=== PATIENT | male | born 1950 | race African-American/Black ===

== ENCOUNTER 2016-11-11 16:01 | Inpatient (IN) ==
[2016-11-11] MEDS ORDERED: ALBUTEROL/IPRATROPIUM 3 ML NEB RESP TX STA (16:28)
[2016-11-11] MEDS ORDERED: LEVOFLOXACIN INJ 750 MG in PREMIX 1 EACH IV STA (16:28)
[2016-11-11] MEDS ORDERED: ONDANSETRON 4 MG/2 ML VIAL IV STA (16:28)
[2016-11-11] MEDS ORDERED: FUROSEMIDE 100 MG/10 ML VIAL IV STA (16:28)
[2016-11-11] MEDS ORDERED: methylPREDNISolone SOD SUC 125 MG/2 ML VIAL IV STA (16:28)
[2016-11-11 16:40] LABS: Basophils % 0.2 % (0.0-0.8); Eosinophils % 0.2 % (0.00-10.9); Hematocrit 51.6 VOL% (42.0-52.0); Hemoglobin 16.4 GM/DL (14.0-18.0); Immature Granulocytes % 0.6 %; Immature Granulocytes Absolute 0.08 #; Lymphocytes # 0.7 10*3/uL (1.4-4.0); Lymphocytes % 5.5 % (21.2-54.2); Mean Corpuscular HGB Conc 31.8 GM/DL (32-36); Mean Corpuscular Hemoglobin 26 PG (27-34); Mean Corpuscular Volume 80.9 FL (87-102); Mean Platelet Volume 9.3 FL (9.6-12.0); Monocytes # 0.7 10*3/uL (0.11-0.8); Monocytes % 5.2 % (1.7-12.7); Neutrophils # 11.1 10*3/uL (1.4-7.4); Neutrophils % 88.3 % (38.7-73.9); Platelet Count 463 T/CUMM (130-400); Red Blood Count 6.38 MC/CUMM (3.8-5.5); Red Cell Distribution Width 14.7 % (9.3-17.3); White Blood Count 12.6 T/CUMM (4-12)
--- NOTE | 2016-11-11 16:45 | Emergency Department Note ---
Arrival - Arrival Chief Complaint: Shortness of Breath Stated Complaint: SOB ED Nursing Triage Note: increased sob over the past two days. has been sick with a cold and productive cough Mode of Arrival: Ambulatory Limitations: No Limitations Source: Patient Time Seen by Provider: 11/11/16 16:28 - History of Present Illness HPI Narrative: This 66-year-old white male presents with 2 days of increased dyspnea on exertion and at rest, cough productive of solorio secretions, nasal congestion and rhinorrhea, intermittent wheezing, orthopnea, central fleeting chest pain, and PND. Patient has a significant history of both COPD and CHF and has not taken his Lasix for several days. In addition he complains of mild increase in heartburn and belching. He denies nausea, vomiting, chills, or fever in association with this exacerbation. Currently he is alert and oriented and able to speak in complete sentences. He is in no medical distress currently. Onset (ago): day(s) (Patient presents 2 days post onset of symptoms) Consistency: constant Severity: moderate Allergies/Adverse Reactions: Allergies Allergy/AdvReac Type Severity Reaction Status Date / Time No Known Allergies Allergy Verified 05/07/16 10:31 Home Medications: Home Medications Medication Instructions Recorded Confirmed Type Atorvastatin [Lipitor] 10 mg PO DAILY 05/07/16 11/11/16 History Cetirizine Tab [ZyrTEC Tab] 10 mg PO DAILY 05/07/16 11/11/16 History Diltiazem HCl [Diltiazem ER (24 360 mg PO DAILY 05/07/16 11/11/16 History hr)] Furosemide Tab [Lasix Tab] 40 mg PO DAILY 05/07/16 11/11/16 History Metoprolol Tartrate Tab [Lopressor 50 mg PO BID 05/07/16 11/11/16 History Tab] Pantoprazole Tab [Protonix Tab] 40 mg PO DAILY 05/07/16 11/11/16 History Theophylline ER Tab (24 Hr) 400 mg PO DAILY 05/07/16 11/11/16 History Albuterol Sulfate [Ventolin HFA] 2 puff INH Q4H PRN 11/11/16 11/11/16 History Budesonide/Formoterol 160-4.5 2 puff INH BID 11/11/16 11/11/16 History [Symbicort 160-4.5] Roflumilast [Daliresp] 500 mcg PO DAILY 11/11/16 11/11/16 History Sulfameth/Trimeth 800-160 Tab 1 tablet PO BID 11/11/16 11/11/16 History [Bactrim DS Tab] Review of System - Review of System 12 point system: reviewed and no additional remarkable complaints except as stated - Review of System Constitutional: Present: as per HPI Head/Ears/Nose/Throat: Present: see HPI Respiratory: Present: as per HPI Gastrointestinal: Present: as per HPI Medical,Surgical,& Family Hx - Medical History Cardio: History of: Hypertension Endocrine: History of: Dyslipidemia Respiratory: History of: COPD, Respiratory Problems (emphysema) - Social History Smoking Status: Smoker, status unknown Exam Physical Examination: GENERAL: Well developed, well nourished elderly black male in no acute distress. HEENT: Normocephalic. No trauma. Moist mucous membranes. EOMI. PERRLA. ENT ears normal, throat normal, nasal mucosa reveals erythematous edema NECK: Supple. Cervical adenopathy. CARDIAC: Regular. No murmurs. Heart rate 120 CHEST: Scattered expiratory wheezes with bibasilar Rales. No respiratory distress. O2 sat 89% on room air ABDOMEN: Soft. Nontender. Active bowel sounds. EXTREMITIES: No trauma. Normal ROM. No pedal edema. SKIN: No diaphoresis. No rash. NEURO: Alert. Neuro intact. no focal deficits. Vital Signs: Vital Signs Temperature 98.9 F 11/11/16 16:44 Pulse Rate 107 H 11/11/16 18:00 Respiratory Rate 21 11/11/16 18:00 Blood Pressure 142/79 11/11/16 18:00 O2 Sat by Pulse Oximetry 96 11/11/16 18:00 Course - Reevaluation(s) Reevaluation #1: Discussed with patient the need for hospitalization due to his persistent hypoxia despite therapy. - Consultations Consultation #1: Discussed with the hospitalist service who will admit for further evaluation treatment Results - Labs CBC & BMP: 11/11/16 16:32 11/11/16 16:32 Labs: I reviewed the lab and noted the elevated white blood cell count. - Impressions EKG: Sinus tachycardia at 104 with left axis deviation nonspecific ST changes. No acute injury pattern noted. - Diagnostic Findings Procedure: Chest x-ray: image reviewed by me, report reviewed by me (Bullous emphysema with questionable mass), CT - chest: image reviewed by me, report reviewed by me (No mass but again severe bullous emphysema with scarring) Disposition Clinical Impression: Exacerbation of COPD, Bullous emphysema Case discussed with: patient, patient's family Disposition: Still a Patient Condition: Guarded Time of Disposition: 18:42
[2016-11-11 16:50] LABS: PT Patient Result 11.1 SECS; Partial Thromboplastin Time 22.6 SECS (0-40)
[2016-11-11] MEDS ORDERED: methylPREDNISolone SOD SUC 125 MG/2 ML VIAL ONE (16:54)
[2016-11-11] MEDS ORDERED: ONDANSETRON 4 MG/2 ML VIAL ONE (16:54)
[2016-11-11] MEDS ORDERED: TERBUTALINE 1 MG/1 ML VIAL SUBCUT ONE ×2 (16:54→19:21)
[2016-11-11] MEDS ORDERED: FUROSEMIDE 40 MG/4 ML VIAL ONE (16:54)
[2016-11-11] MEDS ORDERED: LEVOFLOXACIN INJ 150 ML IV ONE (16:54)
[2016-11-11 17:00] LABS: Alanine Aminotransferase 16 U/L (16-61); Albumin 3.8 G/DL (3.4-5.0); Alkaline Phosphatase 102 U/L (45-117); Aspartate Amino Transferase 19 U/L (0-37); Blood Urea Nitrogen 34 MG/DL (7-18); Calcium 9.6 MG/DL (8.5-10.1); Glucose 115 MG/DL (74-106); Osmolality,Calculated 278.1 MOS/KG (273-304); Potassium 5.3 MMOL/L (3.5-5.1); Sodium 135 MMOL/L (136-145); Total Protein 7.6 G/DL (6.4-8.3); Troponin I Only < 0.015 NG/ML (0.00-0.045)
[2016-11-11] MEDS: TERBUTALINE 1 MG/1 ML VIAL SUBCUT SCH ×3 (17:00→19:25)
--- NOTE | 2016-11-11 17:03 | XRay Report ---
XR chest 2V Date: 11/11/2016 4:32 PM History: Shortness of breath Comparison: None Technique: PA and lateral chest Findings: The heart is small and compressed by the overexpanded lungs. Symmetric pleural thickening at the lung apices with calcified granulomata/nodes. Possible nipple shadows in both mid lung zones. Additional diffuse parenchymal findings with overlapping soft tissue densities. Blunting of the right costophrenic angle. Deformity of the right eighth and ninth ribs laterally with callus formation. Degenerative changes are noted. Impression: Bullous emphysema with probable chronic scarring. It is difficult to exclude a small right pleural effusion with adjacent atelectasis/infiltration. Probable nipple shadows in the midlung zones. Additional lobulated soft tissue density in the left mid to lower lung zone. This could be related to overlapping soft tissues but it is difficult to exclude additional soft tissue pathology and correlation with physical exam is recommended to exclude mass. Probable old healed fractures of the right eighth and ninth ribs laterally with prominent callus formation. PROCEDURE INTERPRETED AT [facility] DEPARTMENT OF RADIOLOGY Final Report Signed by: Dr. Maylin Duenas
--- NOTE | 2016-11-11 17:38 | EKG Report ---
Stationary ECG Study [facility] ER Test Date: 11/11/2016 5:37:48 PM Pat Name: JOSE MANUEL PORTILLO Department: Room: Gender: M [employer]: YAMILETH : 1950 Requested by: Trung Cook Order Number: [id number] Reading MD: MARILEE BENTLEY Intervals [place] Rate: 104 P: 97 CO: 135 QRS: -30 QRSD: 83 T: 94 QT: 306 QTc: 367 Interpretive Statements SINUS TACHYCARDIA BORDERLINE LEFT AXIS DEVIATION ABNORMAL QRS-T ANGLE 545 Electronically Signed On 11-14-16 06:30:20 CDT by MARILEE BENTLEY [email or web address]
[2016-11-11 18:08] LABS: Apearance,Urine CLEAR (Clear); Bilirubin,Urine Negative (Negative); Blood, Urine Negative (Negative); Glucose,Urine (UA) Negative (Negative); Ketones,Urine Negative (Negative); Mucus,Urine Occasional /LPF (Occasional); Nitrite,Urine Negative (Negative); Protein,Urine Negative; RBC,Urine <1 /HPF (0-4); Urine Color Straw (Yellow); Urine Specific Gravity 1.006 (1.001-1.035); Urine Urobilinogen < 2.0 EU/DL (0.2-1.0); WBC,Urine <1 /HPF (0-6)
--- NOTE | 2016-11-11 18:23 | CT Report ---
History: Shortness of breath. Abnormal chest x-ray suggesting potential pulmonary nodule Date: 11/11/2016 Study: CT chest with IV contrast with pulmonary embolus technique Comparison exam: No previous chest CT Spiral CT sections were obtained through the lungs following the IV administration of 80 mL of Omnipaque 350 without immediate complication. Total DLP measures 249.5 mGy*cm. The CT exam was performed using one or more of the following dose reduction techniques: Automated exposure control and adjustment of the mA and/or kV according to patient size. There is no confluent infiltrate to suggest pneumonia. There is no discrete pulmonary mass to suggest neoplasm. There are severe changes of bullous emphysema, more so in the mid to upper lungs. There is some mild dependent atelectasis in the lower lungs. There is no layering pleural effusion. There is some platelike scarring in either upper lobe. There is also some pleural-based platelike scarring in the right lower lobe. There is no mediastinal lymphadenopathy by short axis diameter criteria. There is no thoracic aortic aneurysm or dissection. There is at least mild coronary artery calcification. There is a nonspecific 2.7 cm right adrenal nodule. The partially visualized upper abdomen is otherwise unremarkable. Impression: Severe changes of bullous emphysema. No pulmonary mass or definite acute pulmonary infiltrate. Nonspecific right adrenal mass which could be related to an adrenal adenoma, though other pathology cannot be excluded; follow-up is needed. Mild coronary artery calcification PROCEDURE INTERPRETED AT [facility] DEPARTMENT OF RADIOLOGY Final Report Signed by: Dr. Huma Mcknight
[2016-11-11] MEDS ORDERED: ALBUTEROL NEB SOLN 5 MG/ML 20 ML/BOTTLE CONT NEB STA (18:38)
--- NOTE | 2016-11-11 19:01 | Hospitalist History & Physical ---
Assessment and Plan - Time spent with patient Time spent with patient: Greater than 30 minutes (1) COPD exacerbation Status: Acute Assessment and plan: Patient be admitted for COPD exacerbation. Will continue O2 supplementation, nebulizers, empiric antibiotics, intravenous corticosteroids. Further workup will be performed based on patient response and results of the pending database. Current Visit: Yes (2) Hypertension Status: Chronic Assessment and plan: Patient has chronic essential hypertension which is currently well controlled. Will continue current regimen. Current Visit: Yes Qualifiers: Hypertension type: essential hypertension Qualified Code(s): I10 - Essential (primary) hypertension (3) Dyslipidemia Status: Chronic Assessment and plan: Continue current statin therapy. Current Visit: Yes History of Present Illness Chief complaint: Short of breath History of present illness: Mr. Melendez is a 66 year old black male with history of COPD, hypertension who presents with 2 day history of progressive dyspnea with associated wheeze and cough productive of whitish phlegm. He denies any chest pain, fever, hemoptysis , abdominal pain, nausea, vomiting, diarrhea, constipation, melena, hematochezia , hematemesis, dysuria, hematuria, urinary frequency urgency or incontinence, seizure, syncope. He states he does have a home nebulizer which he uses and he does have home O2 which he occasionally uses. His primary care provider is Dr. Mercado and his fitting room inspector is Dr. Jaron Martin. He was evaluated in our emergency room and found to have room air O2 sats the persisted less than 90% after treatment and it was deemed he would require further observation and care. Home Medications Medication Instructions Recorded Confirmed Type Atorvastatin [Lipitor] 10 mg PO DAILY 05/07/16 11/11/16 History Cetirizine Tab [ZyrTEC Tab] 10 mg PO DAILY 05/07/16 11/11/16 History Diltiazem HCl [Diltiazem ER (24 360 mg PO DAILY 05/07/16 11/11/16 History hr)] Furosemide Tab [Lasix Tab] 40 mg PO DAILY 05/07/16 11/11/16 History Metoprolol Tartrate Tab [Lopressor 50 mg PO BID 05/07/16 11/11/16 History Tab] Pantoprazole Tab [Protonix Tab] 40 mg PO DAILY 05/07/16 11/11/16 History Theophylline ER Tab (24 Hr) 400 mg PO DAILY 05/07/16 11/11/16 History Albuterol Sulfate [Ventolin HFA] 2 puff INH Q4H PRN 11/11/16 11/11/16 History Budesonide/Formoterol 160-4.5 2 puff INH BID 11/11/16 11/11/16 History [Symbicort 160-4.5] Roflumilast [Daliresp] 500 mcg PO DAILY 11/11/16 11/11/16 History Sulfameth/Trimeth 800-160 Tab 1 tablet PO BID 11/11/16 11/11/16 History [Bactrim DS Tab] Allergies Allergy/AdvReac Type Severity Reaction Status Date / Time No Known Allergies Allergy Verified 05/07/16 10:31 Medical,Surgical,& Family Hx - Medical History Cardio: History of: Hypertension Endocrine: History of: Dyslipidemia Respiratory: History of: COPD, Respiratory Problems (emphysema) - Surgical History Surgical History: noncontributory - Family History Family History: Reports;: Family Cancer - Social History Smoking Status: Former smoker Frequency of Alcohol Use: None Type of Drug Use: None 12 point system: reviewed and no additional remarkable complaints except as stated Exam - Constitutional Vitals: Period Temp Pulse Resp BP Sys/Graf Pulse Ox Last 24 Hr 98.9 F-98.9 F 107-130 18-32 124-187/79-94 89-97 General appearance: mild distress - Head Head exam: Present: normocephalic, atraumatic - Eye Eye exam: Present: EOMI Pupils: Present: RAHEEL - ENT ENT exam: Present: normal oropharynx - Neck Neck exam: Absent: lymphadenopathy, meningismus, tenderness, thyromegaly - Respiratory Respiratory exam: Present: wheezes (Scattered wheeze and expiratory bilaterally) . Absent: accessory muscle use, rales, rhonchi - Cardiovascular Cardiovascular exam: Present: regular rate and rhythm, tachycardia. Absent: gallop, JVD, systolic murmur - GI/Abdominal GI/Abdominal exam: Present: normal bowel sounds, soft. Absent: distended, mass , tenderness, rebound - Extremities Exam Extremities exam: Absent: calf tenderness, edema - Back Exam Back exam: Present: normal inspection. Absent: CVA tenderness (L), CVA tenderness (R) - Neurological Exam Neurological exam: Present: alert, oriented X3, CN II-XII intact. Absent: motor sensory deficit - Psychiatric Psychiatric exam: Present: normal affect, normal mood. Absent: agitated, anxious - Skin Skin exam: Present: normal color, warm, dry. Absent: erythema, rash Results - Labs CBC & BMP: 11/11/16 16:32 11/11/16 16:32 Lab Results: I have reviewed the past 24 hour labs - EKG EKG shows: tachycardia, sinus rhythm - Diagnostic Findings Procedure: Chest x-ray: report reviewed by me, CT: report reviewed by me
[2016-11-11] MEDS ORDERED: ALBUTEROL/IPRATROPIUM 3 ML NEB RESP TX PRN (21:49)
[2016-11-11] MEDS ORDERED: ONDANSETRON 4 MG/2 ML VIAL IV PRN (21:49)
[2016-11-11] MEDS ORDERED: ACETAMINOPHEN 325 MG TABLET PO PRN (21:49)
[2016-11-11] MEDS: METOPROLOL TARTRATE 50 MG TABLET PO SCH (22:40)
[2016-11-11] MEDS: methylPREDNISolone SOD SUC 125 MG/2 ML VIAL IV SCH (22:41)
[2016-11-11] MEDS: BUDESONIDE/FORMOTEROL 160-4.5 INHALER 6 GM INH SCH (22:41)
[2016-11-12] MEDS: ALBUTEROL/IPRATROPIUM 3 ML NEB RESP TX SCH ×5 (00:46→19:30)
[2016-11-12] MEDS: methylPREDNISolone SOD SUC 125 MG/2 ML VIAL IV SCH ×4 (04:37→22:25)
[2016-11-12] MEDS: ATORVASTATIN 10 MG TABLET PO SCH (09:28)
[2016-11-12] MEDS: METOPROLOL TARTRATE 50 MG TABLET PO SCH ×2 (09:28→20:39)
[2016-11-12] MEDS: DILTIAZEM CD 180 MG CAPSULE PO SCH (09:28)
[2016-11-12] MEDS: FUROSEMIDE 40 MG TABLET PO SCH (09:28)
[2016-11-12] MEDS: PANTOPRAZOLE 40 MG TABLET PO SCH (09:28)
[2016-11-12] MEDS: BUDESONIDE/FORMOTEROL 160-4.5 INHALER 6 GM INH SCH ×2 (09:29→20:39)
[2016-11-12] MEDS: THEOPHYLLINE ER (24 HR) 400 MG TABLET PO SCH (09:29)
[2016-11-12] MEDS: CETIRIZINE 10 MG TABLET PO SCH (09:29)
[2016-11-12] MEDS: ROFLUMILAST 500 MCG TABLET PO SCH (09:29)
[2016-11-12] MEDS: ENOXAPARIN 40 MG/0.4 ML SYRINGE SUBCUT SCH (09:29)
--- NOTE | 2016-11-12 11:01 | Hospitalist Progress Note ---
Assessment and Plan - Time spent with patient Time spent with patient: Less than 30 minutes (1) COPD exacerbation Status: Acute Assessment and plan: Patient be admitted for COPD exacerbation. Will continue O2 supplementation, nebulizers, empiric antibiotics, intravenous corticosteroids. Further workup will be performed based on patient response and results of the pending database. 11/12/: Patient continues to have significant wheeze and dyspnea. Will change him to an inpatient at this time will continue current medical therapy as noted above. Current Visit: Yes (2) Hypertension Status: Chronic Assessment and plan: Patient has chronic essential hypertension which is currently well controlled. Will continue current regimen. Current Visit: Yes Qualifiers: Hypertension type: essential hypertension Qualified Code(s): I10 - Essential (primary) hypertension (3) Dyslipidemia Status: Chronic Assessment and plan: Continue current statin therapy. Current Visit: Yes Hospitalist: Subjective Interval history: Mr. Melendez continues to have wheezing dyspnea. He has a moist cough at this time with minimal production. He denies any chest pain. He has been ambulatory in the room but has significant dyspnea with minimal exertion. Exam - Constitutional Vitals: Period Temp Pulse Resp BP Sys/Graf Pulse Ox Last 24 Hr 97.2 F-97.7 F 78-116 17-20 120-150/69-85 93-99 General appearance: no acute distress - Head Head exam: Present: normocephalic, atraumatic - Eye Eye exam: Present: EOMI Pupils: Present: RAHEEL - ENT ENT exam: Present: normal oropharynx - Neck Neck exam: Present: normal inspection - Respiratory Respiratory exam: Present: decreased breath sounds, wheezes (Diffuse wheezing) - Cardiovascular Cardiovascular exam: Present: regular rate and rhythm. Absent: tachycardia - GI/Abdominal GI/Abdominal exam: Present: normal bowel sounds, soft. Absent: mass, tenderness , rebound - Extremities Exam Extremities exam: Absent: calf tenderness, edema - Back Exam Back exam: Present: normal inspection - Neurological Exam Neurological exam: Present: alert, oriented X3, CN II-XII intact. Absent: motor sensory deficit - Psychiatric Psychiatric exam: Present: normal affect, normal mood. Absent: agitated, anxious - Skin Skin exam: Present: warm, dry. Absent: rash Results - Labs CBC & BMP: 11/11/16 16:32 11/11/16 16:32 Lab Results: I have reviewed the past 24 hour labs
[2016-11-12] MEDS: LEVOFLOXACIN INJ 750 MG in PREMIX 1 EACH IV SCH (20:40)
[2016-11-12] MEDS: MELATONIN 3 MG TABLET PO PRN (23:53)
[2016-11-13] MEDS: ALBUTEROL/IPRATROPIUM 3 ML NEB RESP TX SCH ×4 (01:47→19:08)
[2016-11-13] MEDS: methylPREDNISolone SOD SUC 125 MG/2 ML VIAL IV SCH ×3 (05:53→17:20)
[2016-11-13 07:25] LABS: Hematocrit 41.3 VOL% (42.0-52.0); Hemoglobin 13.6 GM/DL (14.0-18.0); Immature Granulocytes % 0.7 %; Immature Granulocytes Absolute 0.11 #; Lymphocytes # 0.5 10*3/uL (1.4-4.0); Lymphocytes % 2.9 % (21.2-54.2); Mean Corpuscular HGB Conc 32.9 GM/DL (32-36); Mean Corpuscular Hemoglobin 26 PG (27-34); Mean Corpuscular Volume 78.4 FL (87-102); Mean Platelet Volume 10.2 FL (9.6-12.0); Monocytes # 0.2 10*3/uL (0.11-0.8); Monocytes % 1.1 % (1.7-12.7); Neutrophils # 14.9 10*3/uL (1.4-7.4); Neutrophils % 95.3 % (38.7-73.9); Platelet Count 420 T/CUMM (130-400); Red Blood Count 5.27 MC/CUMM (3.8-5.5); Red Cell Distribution Width 14.2 % (9.3-17.3); White Blood Count 15.7 T/CUMM (4-12)
[2016-11-13 07:51] LABS: Calcium 8.6 MG/DL (8.5-10.1); Potassium 5.1 MMOL/L (3.5-5.1)
--- NOTE | 2016-11-13 08:00 | Hospitalist Progress Note ---
Assessment and Plan - Time spent with patient Time spent with patient: Less than 30 minutes (1) COPD exacerbation Status: Acute Assessment and plan: Patient be admitted for COPD exacerbation. Will continue O2 supplementation, nebulizers, empiric antibiotics, intravenous corticosteroids. Further workup will be performed based on patient response and results of the pending database. : Patient continues to have significant wheeze and dyspnea. Will change him to an inpatient at this time will continue current medical therapy as noted above. 11/13/16: Wheezing has improved but he remains short of breath with minimal exertion and even at rest. He states he is not at his baseline and needs more improvement. We will continue his oxygen therapy, nebulizers, antibiotics and intravenous corticosteroids. We will add a mucous lytic expectorant agent. Theophylline level is currently pending. We will follow-up chest x-ray in the a.m. Current Visit: Yes (2) Hypertension Status: Chronic Assessment and plan: Patient has chronic essential hypertension which is currently well controlled. Will continue current regimen. Current Visit: Yes Qualifiers: Hypertension type: essential hypertension Qualified Code(s): I10 - Essential (primary) hypertension (3) Dyslipidemia Status: Chronic Assessment and plan: Continue current statin therapy. Current Visit: Yes Hospitalist: Subjective Interval history: Mr. Melendez continues to be dyspneic at rest and with minimal exertion but wheezing has improved. He denies any chest pain. Has minimal residual cough. Appetite is good. Exam - Constitutional Vitals: Period Temp Pulse Resp BP Sys/Graf Pulse Ox Last 24 Hr 97.3 F-98.1 F 72-94 16-22 119-144/67-75 95-99 General appearance: no acute distress - Head Head exam: Present: normocephalic, atraumatic - Eye Eye exam: Present: EOMI Pupils: Present: RAHEEL - ENT ENT exam: Present: normal exam - Neck Neck exam: Present: normal inspection - Respiratory Respiratory exam: Present: decreased breath sounds, wheezes (Rare scattered end expiratory wheeze). Absent: rales, rhonchi - Cardiovascular Cardiovascular exam: Present: regular rate and rhythm. Absent: systolic murmur , tachycardia - GI/Abdominal GI/Abdominal exam: Present: normal bowel sounds, soft. Absent: distended, mass , tenderness, rebound - Extremities Exam Extremities exam: Absent: calf tenderness, edema - Back Exam Back exam: Present: normal inspection - Neurological Exam Neurological exam: Present: alert, oriented X3, CN II-XII intact. Absent: motor sensory deficit - Psychiatric Psychiatric exam: Present: normal affect, normal mood. Absent: agitated, anxious - Skin Skin exam: Present: warm, dry. Absent: erythema, rash Results - Labs CBC & BMP: 11/13/16 05:21 11/13/16 05:21 Lab Results: I have reviewed the past 24 hour labs
[2016-11-13 08:16] LABS: Hypochromasia Slight; Lymphocytes 3 % (20-55); Platelet Estimate Increased; Segmented Neutrophils 94 % (50-85); Total Cells Counted 100
[2016-11-13] MEDS: CETIRIZINE 10 MG TABLET PO SCH (09:46)
[2016-11-13] MEDS: FUROSEMIDE 40 MG TABLET PO SCH (09:46)
[2016-11-13] MEDS: ROFLUMILAST 500 MCG TABLET PO SCH (09:46)
[2016-11-13] MEDS: ATORVASTATIN 10 MG TABLET PO SCH (09:46)
[2016-11-13] MEDS: METOPROLOL TARTRATE 50 MG TABLET PO SCH ×2 (09:46→21:45)
[2016-11-13] MEDS: PANTOPRAZOLE 40 MG TABLET PO SCH (09:46)
[2016-11-13] MEDS: THEOPHYLLINE ER (24 HR) 400 MG TABLET PO SCH (09:46)
[2016-11-13] MEDS: DILTIAZEM CD 180 MG CAPSULE PO SCH (09:46)
[2016-11-13] MEDS: BUDESONIDE/FORMOTEROL 160-4.5 INHALER 6 GM INH SCH ×2 (09:47→21:46)
[2016-11-13] MEDS: ENOXAPARIN 40 MG/0.4 ML SYRINGE SUBCUT SCH (09:47)
[2016-11-13] MEDS ORDERED: MAGNESIUM HYDROXIDE SUSP 30 ML UDCUP PO PRN (16:52)
[2016-11-13] MEDS: LEVOFLOXACIN INJ 750 MG in PREMIX 1 EACH IV SCH (21:44)
[2016-11-13] MEDS: MELATONIN 3 MG TABLET PO PRN (21:45)
[2016-11-13] MEDS: ZALEPLON 5 MG CAPSULE PO PRN (21:45)
[2016-11-14] MEDS: ALBUTEROL/IPRATROPIUM 3 ML NEB RESP TX SCH ×4 (00:20→19:09)
--- NOTE | 2016-11-14 07:43 | XRay Report ---
XR chest 2V Date: 11/14/2016 4:00 AM History: Shortness of breath Comparison: 11/11/2016 Technique: PA and lateral chest Findings: The heart is small and compressed by the over expanded lungs. Chronic scarring in the lungs with persistent blunting of the right costophrenic angle. Stable soft tissue densities are noted in the chest. The mediastinum and osseous structures are unchanged in appearance. Impression: Bullous emphysema with chronic scarring. Persistent blunting of the right costophrenic angle with stable soft tissue densities in the chest. PROCEDURE INTERPRETED AT [facility] DEPARTMENT OF RADIOLOGY Final Report Signed by: Dr. Maylin Duenas
[2016-11-14] MEDS: THEOPHYLLINE ER (24 HR) 400 MG TABLET PO SCH (08:29)
[2016-11-14] MEDS: PANTOPRAZOLE 40 MG TABLET PO SCH (08:29)
[2016-11-14] MEDS: CETIRIZINE 10 MG TABLET PO SCH (08:29)
[2016-11-14] MEDS: DILTIAZEM CD 180 MG CAPSULE PO SCH (08:29)
[2016-11-14] MEDS: FUROSEMIDE 40 MG TABLET PO SCH (08:29)
[2016-11-14] MEDS: METOPROLOL TARTRATE 50 MG TABLET PO SCH ×2 (08:29→20:34)
[2016-11-14] MEDS: ATORVASTATIN 10 MG TABLET PO SCH (08:30)
[2016-11-14] MEDS: ROFLUMILAST 500 MCG TABLET PO SCH (08:30)
[2016-11-14] MEDS: ENOXAPARIN 40 MG/0.4 ML SYRINGE SUBCUT SCH (08:32)
[2016-11-14] MEDS: BUDESONIDE/FORMOTEROL 160-4.5 INHALER 6 GM INH SCH ×2 (08:33→20:35)
--- NOTE | 2016-11-14 13:54 | Hospitalist Progress Note ---
<Erik Abbott - Last Filed: 11/14/16 13:57> Assessment and Plan (1) COPD exacerbation Status: Acute Assessment and plan: Will continue O2 supplementation, nebulizers, empiric antibiotics, and intravenous corticosteroids as previously ordered. Leukocytosis remains, WBC- 15.7 today; up from 12.6 on 11/11; NGTD from blood cultures obtained at admission ; will obtain sputum culture for analysis. Current Visit: Yes (2) Hypertension Status: Chronic Current Visit: Yes Qualifiers: Hypertension type: essential hypertension Qualified Code(s): I10 - Essential (primary) hypertension (3) Dyslipidemia Status: Chronic Assessment and plan: Continue lipid lowering agents as previously ordered.Will obtain lipid panel in AM. Current Visit: Yes (4) Hyperglycemia, drug-induced Status: Acute Assessment and plan: Blood glucose levels remain elevated; will start accuchecks with ss coverage and adjust accordingly. Current Visit: Yes Hospitalist: Subjective Interval history: Patient seen and examined; no significant overnight events noted. States" I feel a little better". Exam - Constitutional Vitals: Period Temp Pulse Resp BP Sys/Graf Pulse Ox Last 24 Hr 97.1 F-98.8 F 73-93 16-22 129-152/70-74 91-99 General appearance: normal weight, no acute distress - Head Head exam: Present: normal inspection. Absent: abrasion, contusion, hematoma, laceration - Eye Eye exam: Present: EOMI. Absent: periorbital swelling, scleral icterus Pupils: Present: RAHEEL - ENT ENT exam: Present: normal exam - Neck Neck exam: Present: normal inspection. Absent: lymphadenopathy, meningismus, tenderness, thyromegaly - Respiratory Respiratory exam: Present: decreased breath sounds, wheezes - Cardiovascular Cardiovascular exam: Present: regular rate and rhythm. Absent: carotid bruit, diastolic murmur, gallop, JVD, rubs, systolic murmur - GI/Abdominal GI/Abdominal exam: Present: normal bowel sounds, soft - Extremities Exam Extremities exam: Present: normal inspection - Neurological Exam Neurological exam: Present: alert, oriented X3, CN II-XII intact - Psychiatric Psychiatric exam: Present: normal affect - Skin Skin exam: Present: normal color, warm, dry Results - Labs CBC & BMP: 11/13/16 05:21 11/13/16 05:21 Lab Results: I have reviewed the past 24 hour labs <Sandra Garcia - Last Filed: 11/14/16 17:50> Hospitalist: Subjective Interval history: patient was seen and examined by me. Exam - Constitutional Vitals: Period Temp Pulse Resp BP Sys/Graf Pulse Ox Last 24 Hr 97.1 F-98.8 F 73-93 16-22 129-152/70-83 91-99 Results - Labs CBC & BMP: 11/13/16 05:21 11/13/16 05:21
[2016-11-14] MEDS: methylPREDNISolone SOD SUC 125 MG/2 ML VIAL IV SCH ×5 (17:15→22:01)
[2016-11-14] MEDS: ZALEPLON 5 MG CAPSULE PO PRN (20:30)
[2016-11-14] MEDS: MELATONIN 3 MG TABLET PO PRN (20:30)
[2016-11-14] MEDS: LEVOFLOXACIN INJ 750 MG in PREMIX 1 EACH IV SCH (20:35)
[2016-11-15] MEDS: ALBUTEROL/IPRATROPIUM 3 ML NEB RESP TX SCH ×4 (00:49→19:21)
[2016-11-15] MEDS: methylPREDNISolone SOD SUC 125 MG/2 ML VIAL IV SCH ×5 (06:03→22:00)
--- NOTE | 2016-11-15 06:53 | XRay Report ---
Portable chest Date: 11/15/2016 Clinical history: COPD Comparison: 11/14/2016 Technique: Portable AP sitting chest Findings: The heart remains small and compressed by the over expanded lungs. Chronic scarring with persistent blunting of the right costophrenic angle. Less well-defined soft tissue densities noted in the chest. The mediastinum and osseous structures are stable in appearance. Impression: Bullous emphysema with chronic scarring. Previously noted soft tissue densities in the anterior chest are less well-defined on today's exam. PROCEDURE INTERPRETED AT [facility] DEPARTMENT OF RADIOLOGY Final Report Signed by: Dr. Maylin Duenas
[2016-11-15 07:24] LABS: Basophils % 0.1 % (0.0-0.8); Hematocrit 43.6 VOL% (42.0-52.0); Hemoglobin 14.1 GM/DL (14.0-18.0); Immature Granulocytes % 0.7 %; Immature Granulocytes Absolute 0.07 #; Lymphocytes # 0.3 10*3/uL (1.4-4.0); Mean Corpuscular HGB Conc 32.3 GM/DL (32-36); Mean Corpuscular Hemoglobin 26 PG (27-34); Mean Platelet Volume 9.6 FL (9.6-12.0); Monocytes # 0.1 10*3/uL (0.11-0.8); Monocytes % 1.2 % (1.7-12.7); Neutrophils # 9.7 10*3/uL (1.4-7.4); Platelet Count 390 T/CUMM (130-400); Red Blood Count 5.45 MC/CUMM (3.8-5.5); White Blood Count 10.2 T/CUMM (4-12)
[2016-11-15 07:49] LABS: Hypochromasia 1+; Lymphocytes 2 % (20-55); Platelet Estimate Adequate; Segmented Neutrophils 96 % (50-85); Total Cells Counted 100
[2016-11-15 08:01] LABS: Albumin 3.1 G/DL (3.4-5.0); Bilirubin,Total 0.5 MG/DL (0.2-1.0); Calcium 9.1 MG/DL (8.5-10.1); Magnesium 2.7 MG/DL (1.8-2.4); Osmolality,Calculated 285.5 MOS/KG (273-304); Phosphorous 3.4 MG/DL (2.5-4.9); Potassium 4.7 MMOL/L (3.5-5.1); Total Protein 6.3 G/DL (6.4-8.3)
--- NOTE | 2016-11-15 09:04 | Hospitalist Progress Note ---
Assessment and Plan (1) COPD exacerbation Status: Acute Assessment and plan: Will continue O2 supplementation, nebulizers, empiric antibiotics, and intravenous corticosteroids as previously ordered. Noted decrease in WBC-10.6 today; up from 15.7 on 11/14 NGTD from blood cultures obtained at admission; awaiting sputum culture results. Current Visit: Yes (2) Hypertension Status: Chronic Current Visit: Yes Qualifiers: Hypertension type: essential hypertension Qualified Code(s): I10 - Essential (primary) hypertension (3) Dyslipidemia Status: Chronic Assessment and plan: Continue lipid lowering agents as previously ordered. Current Visit: Yes (4) Hyperglycemia, drug-induced Status: Acute Assessment and plan: Blood glucose levels remain elevated; continue accuchecks with ss coverage and adjust accordingly. Current Visit: Yes Hospitalist: Subjective Interval history: Patient seen and examined. No significant overnight events reported. WBC's trending down today at 10.6. Patient states' I feel a little better". Exam - Constitutional Vitals: Period Temp Pulse Resp BP Sys/Graf Pulse Ox Last 24 Hr 97.5 F-98.3 F 78-97 16-20 112-142/63-89 96-100 General appearance: normal weight, no acute distress - Head Head exam: Present: normal inspection, normocephalic, atraumatic - Eye Eye exam: Present: EOMI. Absent: periorbital swelling, scleral icterus, laceration to eyelids Pupils: Present: RAHEEL, normal accommodation - Neck Neck exam: Present: normal inspection. Absent: lymphadenopathy, meningismus, tenderness, thyromegaly - Respiratory Respiratory exam: Present: accessory muscle use, decreased breath sounds - Cardiovascular Cardiovascular exam: Present: regular rate and rhythm. Absent: carotid bruit, diastolic murmur, gallop, JVD, rubs, systolic murmur - GI/Abdominal GI/Abdominal exam: Present: normal bowel sounds, soft - Extremities Exam Extremities exam: Present: normal inspection, full ROM - Back Exam Back exam: Present: normal inspection - Neurological Exam Neurological exam: Present: alert, oriented X3, CN II-XII intact - Psychiatric Psychiatric exam: Present: normal affect - Skin Skin exam: Present: normal color, warm, dry Results - Labs CBC & BMP: 11/15/16 07:13 11/15/16 07:13 Lab Results: I have reviewed the past 24 hour labs
[2016-11-15] MEDS: ENOXAPARIN 40 MG/0.4 ML SYRINGE SUBCUT SCH (09:44)
[2016-11-15] MEDS: THEOPHYLLINE ER (24 HR) 400 MG TABLET PO SCH (09:45)
[2016-11-15] MEDS: CETIRIZINE 10 MG TABLET PO SCH (09:45)
[2016-11-15] MEDS: ROFLUMILAST 500 MCG TABLET PO SCH (09:45)
[2016-11-15] MEDS: PANTOPRAZOLE 40 MG TABLET PO SCH (09:45)
[2016-11-15] MEDS: DILTIAZEM CD 180 MG CAPSULE PO SCH (09:46)
[2016-11-15] MEDS: FUROSEMIDE 40 MG TABLET PO SCH (09:46)
[2016-11-15] MEDS: METOPROLOL TARTRATE 50 MG TABLET PO SCH ×2 (09:46→20:11)
[2016-11-15] MEDS: ATORVASTATIN 10 MG TABLET PO SCH (09:46)
[2016-11-15] MEDS: BUDESONIDE/FORMOTEROL 160-4.5 INHALER 6 GM INH SCH ×2 (09:49→20:11)
[2016-11-15] MEDS: LEVOFLOXACIN INJ 750 MG in PREMIX 1 EACH IV SCH (20:10)
[2016-11-15] MEDS: MELATONIN 3 MG TABLET PO PRN (20:11)
[2016-11-16] MEDS: ALBUTEROL/IPRATROPIUM 3 ML NEB RESP TX SCH ×3 (00:46→13:02)
[2016-11-16 05:21] LABS: Hematocrit 42.5 VOL% (42.0-52.0); Hemoglobin 13.6 GM/DL (14.0-18.0); Immature Granulocytes % 1.3 %; Immature Granulocytes Absolute 0.12 #; Lymphocytes # 0.3 10*3/uL (1.4-4.0); Lymphocytes % 3.2 % (21.2-54.2); Mean Corpuscular Hemoglobin 26 PG (27-34); Mean Corpuscular Volume 80.8 FL (87-102); Mean Platelet Volume 9.4 FL (9.6-12.0); Monocytes # 0.2 10*3/uL (0.11-0.8); Monocytes % 1.8 % (1.7-12.7); Neutrophils # 8.4 10*3/uL (1.4-7.4); Neutrophils % 93.7 % (38.7-73.9); Platelet Count 415 T/CUMM (130-400); Red Blood Count 5.26 MC/CUMM (3.8-5.5); Red Cell Distribution Width 13.8 % (9.3-17.3); White Blood Count 8.9 T/CUMM (4-12)
[2016-11-16] MEDS: methylPREDNISolone SOD SUC 125 MG/2 ML VIAL IV SCH (05:44)
[2016-11-16 05:49] LABS: Hypochromasia 1+; Lymphocytes 2 % (20-55); Ovalocytes Slight; Platelet Estimate Adequate; Segmented Neutrophils 96 % (50-85); Total Cells Counted 100
[2016-11-16 05:52] LABS: Albumin 2.9 G/DL (3.4-5.0); Bilirubin,Total 0.4 MG/DL (0.2-1.0); Calcium 8.5 MG/DL (8.5-10.1); Magnesium 2.5 MG/DL (1.8-2.4); Osmolality,Calculated 281.8 MOS/KG (273-304); Phosphorous 3.2 MG/DL (2.5-4.9); Potassium 4.5 MMOL/L (3.5-5.1); Total Protein 5.9 G/DL (6.4-8.3)
--- NOTE | 2016-11-16 07:50 | XRay Report ---
Portable chest Date: 11/16/2016 Clinical history: COPD Comparison: 11/15/2016 Technique: Portable AP sitting chest Findings: The heart remains small and compressed by the over expanded lungs. Chronic scarring with atelectasis at the lung bases. Stable mediastinum and osseous structures. Impression: Emphysema with chronic scarring. Residual atelectasis at the lung bases. PROCEDURE INTERPRETED AT [facility] DEPARTMENT OF RADIOLOGY Final Report Signed by: Dr. Maylin Duenas
--- NOTE | 2016-11-16 07:51 | Discharge Summary ---
<Germania Abbottda - Last Filed: 11/16/16 07:51> Hospital Course - Hospital Course Hospital Course: This a 66 year old -[place] elderly male that presented to the ED on with increased dyspnea x2 days. His past medical history includes: hypertension and COPD. At the time of ED presentation; he was noted to be experiencing profound dyspnea with an expiratory wheeze and phlegm production. He was noted to have persistently low oxygen saturations up ED evaluation; in which warranted inpatient admission. He was aggressively treated with empirical antibiotics and corticosteriods, in which he responded appropriately and his symptoms improved greatly. In our opinion today, he is deemed appropriate for discharge. - Time spent with patient Time with patient DS: Less than 30 minutes Diagnosis - Discharge Diagnosis (1) COPD exacerbation Status: Acute (2) Hypertension Status: Chronic (3) Dyslipidemia Status: Chronic (4) Hyperglycemia, drug-induced Status: Acute Discharge Plan - Discharge Data Disposition: Disch To Home/Self Care - Discharge Medications New Levofloxacin Tab [Levaquin Tab] 750 mg PO DAILY #7 tablet Acetaminophen Tab [Tylenol Tab] 325 mg PO Q4H PRN #0 tablet PRN Reason: fever, headache/body aches Magnesium Hydroxide Susp [Milk of Magnesia] 30 ml PO BID PRN #0 PRN Reason: Constipation Melatonin 3 mg PO BEDTIME PRN #0 tablet PRN Reason: Sleep predniSONE [Prednisone] 20 mg PO DIRECTED 10 Days Continue Cetirizine Tab [ZyrTEC Tab] 10 mg PO DAILY Atorvastatin [Lipitor] 10 mg PO DAILY Theophylline ER Tab (24 Hr) 400 mg PO DAILY Diltiazem HCl [Diltiazem ER (24 hr)] 360 mg PO DAILY Pantoprazole Tab [Protonix Tab] 40 mg PO DAILY Furosemide Tab [Lasix Tab] 40 mg PO DAILY Metoprolol Tartrate Tab [Lopressor Tab] 50 mg PO BID Albuterol Sulfate [Ventolin HFA] 2 puff INH Q4H PRN PRN Reason: Shortness Of Breath/Wheezing Roflumilast [Daliresp] 500 mcg PO DAILY Budesonide/Formoterol 160-4.5 [Symbicort 160-4.5] 2 puff INH BID Discontinued Sulfameth/Trimeth 800-160 Tab [Bactrim DS Tab] 1 tablet PO BID - Follow Up or Referral - Forms/Instructions Instructions: Heart Healthy Diet (DC), Chronic Obstructive Pulmonary Disease ( DC), Chronic Hypertension (DC) Exam - Constitutional Vitals: Period Temp Pulse Resp BP Sys/Graf Pulse Ox Last 24 Hr 97.2 F-97.9 F 80-98 16-20 113-144/61-76 94-99 Discharge Results Procedures and tests throughout hospitalization: Pending Orders 11/14/16 09:52 Sputum Culture and Gram Stain Stat Labs on day of discharge: Labs from last 24 hours 11/16/16 11/16/16 04:23 04:23 WBC 8.9 RBC 5.26 Hgb 13.6 L Hct 42.5 MCV 80.8 L MCH 26 L MCHC 32.0 RDW 13.8 Plt Count 415 H MPV 9.4 L Neut % (Auto) 93.7 H Lymph % (Auto) 3.2 L [place] % (Auto) 1.8 Eos % (Auto) 0.0 Baso % (Auto) 0.0 Neut # (Auto) 8.4 H Lymph # (Auto) 0.3 L [place] # (Auto) 0.2 Eos # (Auto) 0.0 Baso # (Auto) 0.0 Total Counted 100 Immature Gran % 1.3 Nucleated RBC % 0.0 Immature Gran # 0.12 Segmented Neutrophils 96 H Lymphocytes 2 L Monocytes 2 Nucleated RBCs # 0.00 Platelet Estimate Adequate Hypochromasia 1+ Ovalocytes Slight Morphology Comment Sodium 137 Potassium 4.5 Chloride 97 L Carbon Dioxide 26 Anion Gap 18.5 H BUN 36 H Creatinine 1.10 GFR Calculation 80 BUN/Creatinine Ratio 32.00 H Glucose 122 H Calculated Osmolality 281.8 Calcium 8.5 Phosphorus 3.2 Magnesium 2.5 H Total Bilirubin 0.40 AST 14 ALT 17 Alkaline Phosphatase 64 Total Protein 5.9 L Albumin 2.9 L Globulin 3.0 Albumin/Globulin Ratio 0.9 L Preliminary micro results at discharge 11/14/16 09:52 Sputum Culture - Preliminary Sputum Normal Coco at 12 hours DS: Provider Date of admission: 11/12/16 10:58 Primary care physician: . No PCP Attending physician on admission: Alton Tejeda Discharging clinician: Erik Abbott CNP <Sandra Garcia - Last Filed: 11/16/16 13:50> Hospital Course - Time spent with patient Time with patient DS: Greater than 30 minutes Discharge Plan - Discharge Data Condition at Discharge: Stable Discharge Diet: diabetic diet - Forms/Instructions Additional Discharge Instructions: Follow PCP in 1week. Exam - Constitutional General appearance: no acute distress - Head Head exam: Present: normal inspection - Eye Eye exam: Present: EOMI - Respiratory Respiratory exam: Present: clear to auscultation bilaterally - Cardiovascular Cardiovascular exam: Present: regular rate and rhythm - GI/Abdominal GI/Abdominal exam: Present: normal bowel sounds - Extremities Exam Extremities exam: Present: normal inspection - Neurological Exam Neurological exam: Present: alert, oriented X3 - Psychiatric Psychiatric exam: Present: normal affect
[2016-11-16] MEDS: ROFLUMILAST 500 MCG TABLET PO SCH (09:08)
[2016-11-16] MEDS: THEOPHYLLINE ER (24 HR) 400 MG TABLET PO SCH (09:08)
[2016-11-16] MEDS: ENOXAPARIN 40 MG/0.4 ML SYRINGE SUBCUT SCH (09:08)
[2016-11-16] MEDS: PANTOPRAZOLE 40 MG TABLET PO SCH (09:08)
[2016-11-16] MEDS: METOPROLOL TARTRATE 50 MG TABLET PO SCH (09:09)
[2016-11-16] MEDS: DILTIAZEM CD 180 MG CAPSULE PO SCH (09:09)
[2016-11-16] MEDS: FUROSEMIDE 40 MG TABLET PO SCH (09:09)
[2016-11-16] MEDS: CETIRIZINE 10 MG TABLET PO SCH (09:09)
[2016-11-16] MEDS: ATORVASTATIN 10 MG TABLET PO SCH (09:10)
[2016-11-16 11:53] VITALS: BP 141/76
== END 2016-11-16 14:30 | disposition home or self-care (01) | DRG 192 ==
LOC: N.ED 16:01 → N.EDINP 16:01 → SUATTDRO 18:56 → N.EDINP 21:37 → N.5E 23:54
PROVIDERS: ADMIT Hospitalist; ATTEND Internal Medicine

== ENCOUNTER 2016-11-19 14:32 | Inpatient (IN) ==
[2016-11-19] MEDS ORDERED: FUROSEMIDE 40 MG/4 ML VIAL ONE (14:36)
[2016-11-19] MEDS ORDERED: methylPREDNISolone SOD SUC 125 MG/2 ML VIAL ONE (14:36)
[2016-11-19] MEDS ORDERED: TERBUTALINE 1 MG/1 ML VIAL SUBCUT ONE (14:36)
[2016-11-19] MEDS ORDERED: methylPREDNISolone SOD SUC 125 MG/2 ML VIAL IV STA (14:41)
[2016-11-19] MEDS ORDERED: cefTRIAXone 1,000 MG in SODIUM CHLORIDE 0.9% 100 ML IV STA (14:41)
[2016-11-19] MEDS ORDERED: FUROSEMIDE 100 MG/10 ML VIAL IV STA (14:41)
[2016-11-19] MEDS ORDERED: MAGNESIUM SULF RIDER 2 GM in PREMIX 1 EACH IV STA (14:41)
[2016-11-19] MEDS ORDERED: AZITHROMYCIN INJ 500 MG in SODIUM CHLORIDE 0.9% 250 ML IV STA (14:41)
[2016-11-19] MEDS: TERBUTALINE 1 MG/1 ML VIAL SUBCUT SCH ×2 (14:48→15:02)
[2016-11-19] MEDS ORDERED: MAGNESIUM SULF RIDER 50 ML IV ONE (14:50)
--- NOTE | 2016-11-19 14:52 | Emergency Department Note ---
Arrival - Arrival Chief Complaint: Shortness of Breath ED Nursing Triage Note: pt to er 20 via ems coming from home with c/o having sob pt is in respiratory distress with respirations of 30. 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 The patient is sadistic at the moment he cannot provide any history. He would seem to be presenting as he did initially on his last admission with severe dyspnea and low saturations. He did however respond quickly to steroids and antibiotics on the last admission. Currently is in moderate to severe respiratory distress Onset (ago): hour(s) (Onset of symptoms in the last several hours.) Consistency: constant Severity: severe Allergies/Adverse Reactions: Allergies Allergy/AdvReac Type Severity Reaction Status Date / Time No Known Allergies Allergy Unverified 11/19/16 14:39 Home Medications: Home Medications Medication Instructions Recorded Confirmed Type Atorvastatin [Lipitor] 10 mg PO DAILY 05/07/16 11/12/16 History Cetirizine Tab [ZyrTEC Tab] 10 mg PO DAILY 05/07/16 11/12/16 History Diltiazem HCl [Diltiazem ER (24 360 mg PO DAILY 05/07/16 11/12/16 History hr)] Furosemide Tab [Lasix Tab] 40 mg PO DAILY 05/07/16 11/12/16 History Metoprolol Tartrate Tab [Lopressor 50 mg PO BID 05/07/16 11/12/16 History Tab] Pantoprazole Tab [Protonix Tab] 40 mg PO DAILY 05/07/16 11/12/16 History Theophylline ER Tab (24 Hr) 400 mg PO DAILY 05/07/16 11/12/16 History Albuterol Sulfate [Ventolin HFA] 2 puff INH Q4H PRN 11/11/16 11/12/16 History Budesonide/Formoterol 160-4.5 2 puff INH BID 11/11/16 11/12/16 History [Symbicort 160-4.5] Roflumilast [Daliresp] 500 mcg PO DAILY 11/11/16 11/12/16 History Acetaminophen Tab [Tylenol Tab] 325 mg PO Q4H PRN #0 tablet 11/16/16 Rx Levofloxacin Tab [Levaquin Tab] 750 mg PO DAILY #7 tablet 11/16/16 Rx Magnesium Hydroxide Susp [Milk of 30 ml PO BID PRN #0 11/16/16 Rx Magnesia] Melatonin 3 mg PO BEDTIME PRN #0 tablet 11/16/16 Rx predniSONE [Prednisone] 20 mg PO DIRECTED 10 Days 11/16/16 Rx Review of System - Review of System ROS unobtainable: other (2 dyskinetic for discussion) Medical,Surgical,& Family Hx - Medical History Cardio: History of: Hypertension HEENT: History of: Eye Problem (eye surgery) Endocrine: History of: Dyslipidemia Rheumatology: History of;: Gout Respiratory: History of: COPD, Respiratory Problems (emphysema) - Family History Family History: Reports;: Family Cancer (mother, brother, aunt) - Social History Smoking Status: Unknown if ever smoked Frequency of Alcohol Use: None Type of Drug Use: Unknown Exam Physical Examination: GENERAL: Thin fragile black male in moderate respiratory distress. HEENT: Normocephalic. No trauma. Moist mucous membranes. EOMI. PERRLA. ENT NML NECK: Supple. No adenopathy. Accessory muscle use noted CARDIAC: Regular. No murmurs. Heart rate 90 CHEST: Scattered expiratory wheeze with poor air movement. Accessory muscle use noted. Moderate respiratory distress. ABDOMEN: Soft. Nontender. Active bowel sounds. EXTREMITIES: No trauma. Normal ROM. No pedal edema. SKIN: No diaphoresis. No rash. NEURO: Alert. Motor sensory vibratory intact. No focal deficits. Vital Signs: Vital Signs Temperature 98.6 F 11/19/16 14:35 Pulse Rate 92 H 11/19/16 14:35 Respiratory Rate 30 H 11/19/16 14:35 Blood Pressure 211/90 11/19/16 14:35 O2 Sat by Pulse Oximetry 89 L 11/19/16 14:35 Course Course Narrative: Patient subsequently became less responsive and progressively hypoxic requiring intubation with a #8 ET tube. - Reevaluation(s) Reevaluation #1: The situation with less discussed with the family who were advised the situation and the obvious need for hospitalization - Consultations Consultation #1: The hospitalist service was consulted for further evaluation treatment Procedures - Intubation Time out performed: No sedative: Etomidate Mg Given: 30 paralytic: Succinylcholine Mg Given: 199 Laryngoscope: fiber optic video scope Assist Device Used: fiber optic device ET Tube Size: 7.5 ET Tube Uncuffed: No Tube Secured Depth (cm): 21 Tube Secured Location: lips Tube Placement Confirmation: visualized tube passing through cords, confirmation by capnometry Patient Tolerated Procedure: no complications Results - Labs CBC & BMP: 11/19/16 15:06 Labs: I reviewed the lab and noted the elevated white blood cell count - Diagnostic Findings Procedure: Chest x-ray: image reviewed by me, report reviewed by me (Evidence of COPD but new increased density at the right lower base) Disposition Clinical Impression: Respiratory failure, Exacerbation of COPD Case discussed with: patient's family Disposition: Still a Patient Condition: Critical Time of Disposition: 15:30
[2016-11-19] MEDS ORDERED: ALBUTEROL 2.5 MG/3 ML NEB RESP TX SCH (15:00)
[2016-11-19 15:14] LABS: Basophils % 0.1 % (0.0-0.8); Hematocrit 52.2 VOL% (42.0-52.0); Hemoglobin 16.1 GM/DL (14.0-18.0); Immature Granulocytes % 2.7 %; Immature Granulocytes Absolute 0.49 #; Lymphocytes % 5.4 % (21.2-54.2); Mean Corpuscular HGB Conc 30.8 GM/DL (32-36); Mean Corpuscular Hemoglobin 26 PG (27-34); Mean Corpuscular Volume 83.8 FL (87-102); Mean Platelet Volume 9.2 FL (9.6-12.0); Monocytes # 0.7 10*3/uL (0.11-0.8); Neutrophils # 16.1 10*3/uL (1.4-7.4); Neutrophils % 87.8 % (38.7-73.9); Platelet Count 507 T/CUMM (130-400); Red Blood Count 6.23 MC/CUMM (3.8-5.5); Red Cell Distribution Width 14.5 % (9.3-17.3); White Blood Count 18.4 T/CUMM (4-12)
--- NOTE | 2016-11-19 15:17 | XRay Report ---
Portable chest. Indication: Shortness of breath. Comparison: November 16, 2016. The heart is normal in size. There is calcific plaque present within the aortic knob. The lung blum are hyperexpanded and bullous disease is suspected at the apices. Fibrotic changes are also noted. Vague interstitial abnormalities have developed in the lung bases consistent with either atelectasis or developing interstitial pneumonia. No pneumothorax. No pleural effusion. Impression: COPD. Opacities at the lung bases, atelectasis versus early infiltrate. PROCEDURE INTERPRETED AT [facility] DEPARTMENT OF RADIOLOGY Final Report Signed by: Dr. Yenny Prakash
[2016-11-19 15:26] LABS: INR 1.1; PT Patient Result 11.2 SECS; Partial Thromboplastin Time 23.1 SECS (0-40)
[2016-11-19] MEDS ORDERED: PROPOFOL 1,000 MG/100 ML BOTTLE IV ONE (15:27)
[2016-11-19] MEDS ORDERED: VECURONIUM 10 MG VIAL IV ONE (15:27)
[2016-11-19] MEDS ORDERED: ETOMIDATE 20 MG/10 ML VIAL IV ONE (15:28)
[2016-11-19] MEDS ORDERED: SUCCINYLCHOLINE 200 MG/10 ML VIAL ONE (15:28)
[2016-11-19 15:36] LABS: Albumin 3.8 G/DL (3.4-5.0); Bilirubin,Total 0.5 MG/DL (0.2-1.0); CKMB % 1.2 %; Calcium 9.1 MG/DL (8.5-10.1); Osmolality,Calculated 286.1 MOS/KG (273-304); Potassium 4.5 MMOL/L (3.5-5.1); Troponin I Only 0.043 NG/ML (0.00-0.045)
--- NOTE | 2016-11-19 15:36 | EKG Report ---
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
[2016-11-19] MEDS ORDERED: ETOMIDATE 20 MG/10 ML VIAL IV STA (15:47)
[2016-11-19] MEDS ORDERED: SUCCINYLCHOLINE 200 MG/10 ML VIAL IV STA (15:47)
[2016-11-19] MEDS ORDERED: SODIUM CHLORIDE 0.9% 1,000 ML IV STA (15:48)
--- NOTE | 2016-11-19 15:51 | Hospitalist History & Physical ---
Assessment and Plan (1) Respiratory distress, acute Status: Acute Assessment and plan: Patient is intubated. Will consult pulmonary to assist with management. We start empirical antibiotic coverage after greenwood cultures are obtained. Will replace volume, start VTE and PPI's. Current Visit: Yes (2) Respiratory failure Status: Acute Assessment and plan: Consult pulmonary for ventilator management Current Visit: Yes (3) COPD exacerbation Status: Acute Current Visit: No (4) Hypertension Status: Chronic Current Visit: No Qualifiers: Hypertension type: essential hypertension Qualified Code(s): I10 - Essential (primary) hypertension History of Present Illness Chief complaint: "shortness of breath" History of present illness: This is a poor rather unfortunate 66 year old elderly man that presented to the ED this morning with a chief complaint of shortness of breath.He was a rather impressive medical history of hypertension, dyslipidemia , GERD, COPD, and seasonal allergies. The patient was recently discharged from [facility] in 11/16 for COPD exacerbation. Apparently, he has been experiencing increased shortness of breath. His family is at bedside. They report that the patient has not been able to lie flat and has "been getting worse". This morning his symptoms increased in severity. His family reports that they administered several breathing treatments, however his symptoms failed to improve. They were alarmed and called for emergency assistance. He presented in respiratory distress. He was given both intravenous and nebulizer steroids; however his symptoms failed to improve. He was electively intubated for airway protection and impending respiratory arrest. He will be admitted to intensive care under the hospitalist services. We will consult pulmonary for ventilator management. Home Medications Medication Instructions Recorded Confirmed Type Atorvastatin [Lipitor] 10 mg PO DAILY 05/07/16 11/19/16 History Cetirizine Tab [ZyrTEC Tab] 10 mg PO DAILY 05/07/16 11/19/16 History Diltiazem HCl [Diltiazem ER (24 360 mg PO DAILY 05/07/16 11/19/16 History hr)] Furosemide Tab [Lasix Tab] 40 mg PO DAILY 05/07/16 11/19/16 History Pantoprazole Tab [Protonix Tab] 40 mg PO DAILY 05/07/16 11/19/16 History Theophylline ER Tab (24 Hr) 400 mg PO DAILY 05/07/16 11/19/16 History Albuterol Sulfate [Ventolin HFA] 2 puff INH Q4H PRN 11/11/16 11/19/16 History Budesonide/Formoterol 160-4.5 2 puff INH BID 11/11/16 11/19/16 History [Symbicort 160-4.5] Roflumilast [Daliresp] 500 mcg PO DAILY 11/11/16 11/19/16 History Acetaminophen Tab [Tylenol Tab] 325 mg PO Q4H PRN #0 tablet 11/16/16 11/19/16 Rx Levofloxacin Tab [Levaquin Tab] 750 mg PO DAILY #7 tablet 11/16/16 11/19/16 Rx Magnesium Hydroxide Susp [Milk of 30 ml PO BID PRN #0 11/16/16 11/19/16 Rx Magnesia] Melatonin 3 mg PO BEDTIME PRN #0 tablet 11/16/16 11/19/16 Rx predniSONE [Prednisone] 20 mg PO DIRECTED 10 Days 11/16/16 11/19/16 Rx Allergies Allergy/AdvReac Type Severity Reaction Status Date / Time No Known Allergies Allergy Unverified 11/19/16 14:39 Medical,Surgical,& Family Hx - Medical History Cardio: History of: Hypertension HEENT: History of: Eye Problem (eye surgery) Endocrine: History of: Dyslipidemia Rheumatology: History of;: Gout Respiratory: History of: COPD, Respiratory Problems (emphysema) - Family History Family History: Reports;: Family Cancer (mother, brother, aunt) - Social History Smoking Status: Unknown if ever smoked Frequency of Alcohol Use: None Type of Drug Use: Unknown ROS unobtainable: due to endotracheal tube Exam - Constitutional Vitals: Period Temp Pulse Resp BP Sys/Graf Pulse Ox Last 24 Hr 98.6 F 92 16-30 211/90 89 General appearance: normal weight, severe distress - Head Head exam: Present: normal inspection, hematoma. Absent: abrasion, contusion - Eye Eye exam: Present: EOMI Pupils: Present: RAHEEL, normal accommodation - ENT ENT exam: Present: normal exam - Neck Neck exam: Present: normal inspection - Respiratory Respiratory exam: Present: accessory muscle use, rales - Cardiovascular Cardiovascular exam: Present: tachycardia. Absent: gallop, JVD, rubs - GI/Abdominal GI/Abdominal exam: Present: normal bowel sounds, soft - Extremities Exam Extremities exam: Present: normal inspection, full ROM - Back Exam Back exam: Present: normal inspection - Neurological Exam Neurological exam: Present: altered - Psychiatric Psychiatric exam: Present: normal affect, normal mood - Skin Skin exam: Present: normal color, dry Results - Labs CBC & BMP: 11/19/16 15:06 11/19/16 15:06 Lab Results: I have reviewed the past 24 hour labs Quality Measures - VTE Deep Vein Thrombosis/Pulmonary Embolism Present on Admission: No
[2016-11-19] MEDS: PROPOFOL 1,000 MG/100 ML BOTTLE IV SCH ×2 (15:54→20:06)
[2016-11-19] MEDS ORDERED: cefTRIAXone 1,000 MG VIAL ONE (15:55)
--- NOTE | 2016-11-19 15:58 | XRay Report ---
Chest for nasogastric tube placement. The distal tip of the nasogastric tube is in the fundus of the stomach. PROCEDURE INTERPRETED AT [facility] DEPARTMENT OF RADIOLOGY Final Report Signed by: Dr. Yenny Prakash
--- NOTE | 2016-11-19 16:02 | XRay Report ---
Portable chest. Indication: Post intubation. Comparison: Exam from earlier today. 1451 hours. The heart is normal in size. There is a small, 5% pneumothorax visible on the right. The endotracheal tube and nasogastric tube are in satisfactory position. The lung blum are hyperexpanded and bullous disease is suspected at the apices. Fibrosis is seen at the lung bases with atelectasis at the left lung base. Impression: Small right-sided pneumothorax is now visible. Findings of COPD. Satisfactory endotracheal tube and nasogastric tube placement. Findings were discussed with the patient's nurse in the emergency room. PROCEDURE INTERPRETED AT [facility] DEPARTMENT OF RADIOLOGY Final Report Signed by: Dr. Yenny Prakash
[2016-11-19 16:08] LABS: ABG Base Excess 5.1 MMOL/L (-2.5-2.5); ABG HCO3 38.6 MMOL/L (20-26); ABG Oxygen Saturation 97.9 % (95-100); ABG PO2 152.6 MM HG (80-95); ABG TCO2 42.1 MMOL/L (23-27)
[2016-11-19] MEDS ORDERED: AZITHROMYCIN 500 MG VIAL IV ONE (16:09)
[2016-11-19 16:10] LABS: ABG PCO2 112.4 MM HG (35-48); ABG PH 7.154 (7.35-7.45)
--- NOTE | 2016-11-19 16:20 | XRay Report ---
Portable chest. Indication: Hypoxia. An endotracheal tube and nasogastric tube are in satisfactory position. There is a small right pneumothorax, measuring 5 mm at the apex, and 2.2 cm at the right costophrenic angle. It may be slightly increased in size, particularly at the costophrenic angle, compared to the exam performed at 3:30. There is atelectasis present at the left lung base, with some improvement. Findings of COPD. Normal heart size. Impression: Right-sided pneumothorax, stable to slightly larger. PROCEDURE INTERPRETED AT [facility] DEPARTMENT OF RADIOLOGY Final Report Signed by: Dr. Yenny Prakash
[2016-11-19] MEDS ORDERED: MAGNESIUM HYDROXIDE SUSP 30 ML UDCUP PO PRN (16:56)
[2016-11-19] MEDS ORDERED: ACETAMINOPHEN 325 MG TABLET PO PRN (16:56)
[2016-11-19] MEDS ORDERED: DILTIAZEM CD 180 MG CAPSULE PO SCH (16:56)
[2016-11-19] MEDS ORDERED: ALBUTEROL/IPRATROPIUM 3 ML NEB RESP TX PRN (16:56)
[2016-11-19] MEDS ORDERED: THEOPHYLLINE ER (24 HR) 400 MG TABLET PO SCH (17:00)
[2016-11-19 17:12] LABS: ABG Base Excess 4.6 MMOL/L (-2.5-2.5); ABG HCO3 37.3 MMOL/L (20-26); ABG Oxygen Saturation 88.9 % (95-100); ABG PO2 72.5 MM HG (80-95); ABG TCO2 40.5 MMOL/L (23-27); Allen Test Positive; Pt O2 Delivery Device Ventilator
[2016-11-19 17:14] LABS: ABG PCO2 102.7 MM HG (35-48); ABG PH 7.178 (7.35-7.45)
[2016-11-19] MEDS ORDERED: SODIUM BICARBONATE 50 MEQ/50 ML SYRINGE IV ONE ×3 (17:25→17:31)
--- NOTE | 2016-11-19 17:51 | General Surgery Consult Note ---
Assessment and Plan (1) Pneumothorax, acute Status: Acute Assessment and plan: Impression: Pneumothorax right side Plan: I expect the pneumothorax to worsen with positive pressure. We'll place a right chest tube to prevent any worsening and possible tension pneumothorax. Chest tube will need to be left in place until the patient is off the ventilator. Current Visit: Yes History of Present Illness Chief complaint: consult for right chest tube History of present illness: Mr. Melendez is a 66 year old male who presented to the emergency room for shortness of breath and acute COPD exacerbation. This required intubation in the ER and a subsequent chest x-ray showed a pneumothorax. Repeat chest x-ray showed a mildly larger pneumothorax in this patient on the ventilator with positive pressure. Home Medications Medication Instructions Recorded Confirmed Type Atorvastatin [Lipitor] 10 mg PO DAILY 05/07/16 11/19/16 History Cetirizine Tab [ZyrTEC Tab] 10 mg PO DAILY 05/07/16 11/19/16 History Diltiazem HCl [Diltiazem ER (24 360 mg PO DAILY 05/07/16 11/19/16 History hr)] Furosemide Tab [Lasix Tab] 40 mg PO DAILY 05/07/16 11/19/16 History Pantoprazole Tab [Protonix Tab] 40 mg PO DAILY 05/07/16 11/19/16 History Theophylline ER Tab (24 Hr) 400 mg PO DAILY 05/07/16 11/19/16 History Albuterol Sulfate [Ventolin HFA] 2 puff INH Q4H PRN 11/11/16 11/19/16 History Budesonide/Formoterol 160-4.5 2 puff INH BID 11/11/16 11/19/16 History [Symbicort 160-4.5] Roflumilast [Daliresp] 500 mcg PO DAILY 11/11/16 11/19/16 History Acetaminophen Tab [Tylenol Tab] 325 mg PO Q4H PRN #0 tablet 11/16/16 11/19/16 Rx Levofloxacin Tab [Levaquin Tab] 750 mg PO DAILY #7 tablet 11/16/16 11/19/16 Rx Magnesium Hydroxide Susp [Milk of 30 ml PO BID PRN #0 11/16/16 11/19/16 Rx Magnesia] Melatonin 3 mg PO BEDTIME PRN #0 tablet 03/22/17 03/25/17 Rx predniSONE [Prednisone] 20 mg PO DIRECTED 10 Days 11/16/16 11/19/16 Rx Allergies Allergy/AdvReac Type Severity Reaction Status Date / Time No Known Allergies Allergy Unverified 11/19/16 14:39 Medical,Surgical,& Family Hx - Medical History Cardio: History of: Hypertension HEENT: History of: Eye Problem (eye surgery) Endocrine: History of: Dyslipidemia Rheumatology: History of;: Gout Respiratory: History of: COPD, Respiratory Problems (emphysema) - Family History Family History: Reports;: Family Cancer (mother, brother, aunt) - Social History Smoking Status: Unknown if ever smoked Frequency of Alcohol Use: None Type of Drug Use: Unknown ROS unobtainable: due to endotracheal tube Exam - Constitutional General appearance: no acute distress - Neck Neck exam: Present: normal inspection - Respiratory Respiratory exam: Present: clear to auscultation bilaterally - Cardiovascular Cardiovascular exam: Present: RRR - GI/Abdominal GI/Abdominal exam: Present: soft - Skin Skin exam: Present: normal color Quality Measures - VTE Deep Vein Thrombosis/Pulmonary Embolism Present on Admission: No Results - Labs CBC & BMP: 11/19/16 15:06 11/19/16 15:06 Lab Results: I have reviewed the past 24 hour labs
--- NOTE | 2016-11-19 17:56 | Operative Note ---
Date of procedure: 11/19/16 Pre-op diagnosis: right pneumothorax Post-op diagnosis: same Procedure: Procedure performed: Placement of right chest thoracostomy tube Procedure in detail: After informed consent was obtained the patient was laid supine in the ICU bed and the right chest was prepped and draped in usual sterile fashion. After procedural pause local anesthetic infiltrated in the skin and subcutaneous tissue at approximately the right fifth rib space in the anterior axillary line. Incision was made and dissection carried down through skin and soft tissue. Then encountered the rib and injected local along the periosteum. The thoracic cavity was then entered bluntly just over the rib space and there was a return of a gush of air. Finger sweep revealed no adhesions. A 32 [place] chest tube was then placed alongside my finger and guided anteriorly toward the apex. There was moisture within the tube. There was no fluid drained. The chest tube was secured in place with 2-0 silk suture. It was hooked to Pleur-evac and then to low wall suction. Sterile occlusive dressing was applied. Patient tolerated the procedure well. Anesthesia: local Surgeon / Physician: Saúl Cisneros Estimated blood loss: other (less than 10 mL) Specimens: none sent Condition: stable Disposition: no change Results - Labs CBC & BMP: 11/19/16 15:06 11/19/16 15:06 Discharge Plan - Discharge Medications No Action Cetirizine Tab [ZyrTEC Tab] 10 mg PO DAILY Atorvastatin [Lipitor] 10 mg PO DAILY Theophylline ER Tab (24 Hr) 400 mg PO DAILY Diltiazem HCl [Diltiazem ER (24 hr)] 360 mg PO DAILY Pantoprazole Tab [Protonix Tab] 40 mg PO DAILY Furosemide Tab [Lasix Tab] 40 mg PO DAILY Albuterol Sulfate [Ventolin HFA] 2 puff INH Q4H PRN PRN Reason: Shortness Of Breath/Wheezing Roflumilast [Daliresp] 500 mcg PO DAILY Levofloxacin Tab [Levaquin Tab] 750 mg PO DAILY #7 tablet Budesonide/Formoterol 160-4.5 [Symbicort 160-4.5] 2 puff INH BID Acetaminophen Tab [Tylenol Tab] 325 mg PO Q4H PRN #0 tablet PRN Reason: fever, headache/body aches Magnesium Hydroxide Susp [Milk of Magnesia] 30 ml PO BID PRN #0 PRN Reason: Constipation Melatonin 3 mg PO BEDTIME PRN #0 tablet PRN Reason: Sleep predniSONE [Prednisone] 20 mg PO DIRECTED 10 Days - Follow Up or Referral - Forms/Instructions
[2016-11-19 18:15] LABS: ABG Base Excess 13.3 MMOL/L (-2.5-2.5); ABG HCO3 43.1 MMOL/L (20-26); ABG Oxygen Saturation 99.4 % (95-100); ABG PH 7.342 (7.35-7.45); ABG PO2 436.6 MM HG (80-95); ABG TCO2 45.6 MMOL/L (23-27); Allen Test Positive; Pt O2 Delivery Device Ventilator
[2016-11-19 18:16] LABS: ABG PCO2 81.4 MM HG (35-48)
--- NOTE | 2016-11-19 18:21 | XRay Report ---
Portable chest. Indication: Status post chest tube placement. Comparison: Multiple exams from earlier today. A chest tube has been placed on the right. The right-sided pneumothorax is slightly decreased in size. Bullous disease is present. Increased opacity at the left lung base may be related to atelectasis or early infiltrate. Healed tube and nasogastric tube remain in satisfactory position. Impression: There has been chest tube placement and the pneumothorax on the right appears smaller, particularly at the costophrenic angle. Infiltrate versus atelectasis at the left lung base. COPD. PROCEDURE INTERPRETED AT [facility] DEPARTMENT OF RADIOLOGY Final Report Signed by: Dr. Yenny Prakash
[2016-11-19 18:31] LABS: Basophils % 0.1 % (0.0-0.8); Hematocrit 47.1 VOL% (42.0-52.0); Hemoglobin 14.5 GM/DL (14.0-18.0); Immature Granulocytes Absolute 0.43 #; Lymphocytes # 0.2 10*3/uL (1.4-4.0); Lymphocytes % 0.7 % (21.2-54.2); Mean Corpuscular HGB Conc 30.8 GM/DL (32-36); Mean Corpuscular Hemoglobin 26 PG (27-34); Mean Corpuscular Volume 83.7 FL (87-102); Mean Platelet Volume 9.6 FL (9.6-12.0); Monocytes # 0.5 10*3/uL (0.11-0.8); Monocytes % 2.4 % (1.7-12.7); Neutrophils # 20.5 10*3/uL (1.4-7.4); Neutrophils % 94.8 % (38.7-73.9); Platelet Count 427 T/CUMM (130-400); Red Blood Count 5.63 MC/CUMM (3.8-5.5); Red Cell Distribution Width 14.4 % (9.3-17.3); White Blood Count 21.6 T/CUMM (4-12)
[2016-11-19 18:51] LABS: CKMB % 1.2 %; Free T4 (Free Thyroxine) 1.23 NG/DL (0.76-1.46); Thyroid Stimulating Hormone 0.046 uIU/ml (0.358-3.74); Troponin I Only 0.043 NG/ML (0.00-0.045)
[2016-11-19 19:09] LABS: Lymphocytes 2 % (20-55); Segmented Neutrophils 98 % (50-85); Total Cells Counted 100
[2016-11-19 19:14] LABS: Albumin 3.2 G/DL (3.4-5.0); Bilirubin,Total 0.4 MG/DL (0.2-1.0); Calcium 8.3 MG/DL (8.5-10.1); Osmolality,Calculated 299.3 MOS/KG (273-304); Potassium 4.1 MMOL/L (3.5-5.1)
[2016-11-19] MEDS: methylPREDNISolone SOD SUC 125 MG/2 ML VIAL IV SCH (19:17)
[2016-11-19] MEDS: ENOXAPARIN 40 MG/0.4 ML SYRINGE SUBCUT SCH (19:17)
[2016-11-19] MEDS: PIPERACILLIN/TAZOBACTAM 3,375 MG in SODIUM CHLORIDE 0.9% 100 ML IV SCH (19:18)
[2016-11-19] MEDS: LEVOFLOXACIN INJ 750 MG in PREMIX 1 EACH IV SCH (19:18)
[2016-11-19] MEDS: fentaNYL INJ 1,250 MCG in SODIUM CHLORIDE 0.9% 225 ML IV SCH (21:46)
[2016-11-20] MEDS: THEOPHYLLINE 5.33 MG/ML 30 ML/BOTTLE PO SCH ×4 (01:02→18:25)
[2016-11-20] MEDS: DILTIAZEM 90 MG TABLET PO SCH ×2 (01:03→06:25)
[2016-11-20] MEDS: methylPREDNISolone SOD SUC 125 MG/2 ML VIAL IV SCH ×3 (01:03→17:22)
[2016-11-20] MEDS: PIPERACILLIN/TAZOBACTAM 3,375 MG in SODIUM CHLORIDE 0.9% 100 ML IV SCH ×3 (01:04→17:19)
[2016-11-20 03:21] LABS: ABG Base Excess 12.7 MMOL/L (-2.5-2.5); ABG HCO3 36.6 MMOL/L (20-26); ABG Oxygen Saturation 99.4 % (95-100); ABG PCO2 51.3 MM HG (35-48); ABG PH 7.485 (7.35-7.45); ABG TCO2 33.1 MMOL/L (23-27); Allen Test Positive; Pt O2 Delivery Device Ventilator
[2016-11-20 05:55] LABS: Magnesium 3.3 MG/DL (1.8-2.4); Phosphorous 3.5 MG/DL (2.5-4.9)
[2016-11-20] MEDS ORDERED: ALBUTEROL/IPRATROPIUM 3 ML NEB RESP TX PRN (07:51)
--- NOTE | 2016-11-20 07:53 | XRay Report ---
Portable chest. Indication: Shortness of breath. Comparison: November 19, 2016. The heart is normal in size. There are findings of COPD with bullous change particularly in the right lobe. The right-sided chest tube remains in satisfactory position. Continued reduction in the right-sided pneumothorax. Minimal pneumothorax suggested at the right lung apex. Improvement in aeration of the left lung base, with platelike atelectasis persisting medially. The heart size is normal. An endotracheal tube and nasogastric tube remain in satisfactory position. Impression: Interval improvement. PROCEDURE INTERPRETED AT [facility] DEPARTMENT OF RADIOLOGY Final Report Signed by: Dr. Yenny Prakash
[2016-11-20] MEDS ORDERED: DEXTROSE 5% NACL 0.9% 1,000 ML IV SCH (08:00)
--- NOTE | 2016-11-20 08:04 | Pulmonology Consult Note ---
History of Present Illness Chief complaint: Ventilator. Pneumothorax. Acute respiratory failure for O2 and CO2 History of present illness: Mr. Melendez is a 66 year old black male whom I been asked to see in pulmonary consultation for evaluation and treatment of pulmonary status and to manage mechanical ventilation. This patient was hospitalized here 11/11/2016 through . This case was managed by Dr. San and Dr. Abbott. The patient is usually followed from a pulmonary standpoint by Dr. Jaron Martin. On 2016 he had been had been admitted with profound dyspnea, expiratory wheezes and phlegm production. His O2 sats were low. ABGs were not done. On 2016 the patient came to the emergency room with shortness of breath. He says his shortness of breath had continued to progress. He was complaining of orthopnea and dyspnea on exertion. His symptoms did not respond to outpatient treatment. He failed to respond in the emergency room and he was intubated. It was felt that he had an impending respiratory arrest. In the emergency room his ABGs showed a pH of 7.154, PCO2 of 112.4. PO2 152.6 and a bicarb of 38.6. Patient was also found to have a small right-sided pneumothorax and a chest tube was placed. This patient is awake and alert on mechanical ventilation and he is able to answer my questions only yes and no basis. He complains of right chest pain secondary to chest tube. The remainder of his review of systems is negative at the present time. Allergies. None Home medicines. See below Hospital medicines. See below Past history. COPD. Bronchospastic disease. Emphysema. Gout. Hyperlipidemia. High blood pressure. Family history. His mother brother and an aunt have cancer. Social history this patient is a former smoker. He denies alcohol. Admit chest x-ray showed increased interstitial markings in the right lower lung left perihilar area and left lower lung. Along the way and very small pneumothorax at the right costophrenic angle developed. Chest x-ray 11/20/2016 shows a normal-sized heart. Pulmonary arteries are top normal. There are benign calcifications of both hilar areas. Aortic knob is calcified. The mediastinum is normal. There are are only a few residual right lower lung interstitial markings. The left perihilar and left lower lung interstitial markings of all improved significantly leading me to think that this is probably a bilateral pneumonia. Patient's left hilum is not well seen and is somewhat asymmetric and may be enlarged superiorly. Better x-ray will need to be done. There is a chest x-ray on the right I do not see a pneumothorax. ABGs on mechanical ventilation FiO2 60% shows a pH of 7.485, PCO2 51.3 (down from 112.4), PO2 of 237 and a bicarb of 36.6 Microbiology. On 11/14/2016 the patient's sputum grew Zoë. Gram stain from 11/19/2016 shows less than 25 white blood cells per low power field. There are few gram-positive cocci and a few yeast. Lab. Creatinine is 1.2. Electrolytes normal. Theophylline level was 11.2. Liver function tests are normal. CPK is elevated at 504. Troponins is 0.043. Natruretic peptide is 72. Protein and albumin are low at 6.0 and 3.2 respectively. Globulin is normal at 2.8. Thyroid function tests are normal. Admit white blood cell count was 21,600 with 95% segs. H&H is 14.5/47.1 with decreased red blood cell indices. Platelets of 427,000. Physical exam. Vital signs. See below Psychiatric. Alert oriented 3 and able to answer questions with yes and no shakes of the head. Neurological exam. Cranial nerves. Intact. Long track motor functions intact. Sensory exam was not done. Gait was not evaluated. Pupils irises sclera conjunctiva and eyelids are normal. Face is symmetrical. Salivary glands are normal. Lips and tongue are normal. Neck. Symmetrical. No meningismus. Lymphatics. No submandibular cervical or supraclavicular adenopathy. Arterial. Carotid upstroke is fair. Upper extremity pulses are palpable. Lower extremity pulses are nonpalpable. No evidence of lower extremity ischemia. Venous exam. Neck upper and lower extremities are normal. Chest. Symmetrical slightly hyperinflated. Mild loose large airway congestion. No wheezes. Heart. No gallop. Abdomen. None distended. Nontender. Scattered bowel sounds. and rectal deferred. Lower extremities. No edema no definite evidence of deep venous thrombophlebitis although both calves are slightly tender. Upper extremities show no clubbing. Musculoskeletal. No gross abnormalities cervical thoracic and lumbar spine. Skin of the face and hands and feet show no cancerous or infectious lesions. No other areas of skin were examined. The remainder the physical exam is negative. Impression. 1. Acute respiratory failure for oxygen and carbon dioxide requiring intubation mechanical ventilation. 2. COPD with bronchospastic disease. Patient is followed by Dr. Jaron Martin. 3. Small right-sided pneumothorax seen at the right costophrenic phrenic angle. Chest tube. 4. Probable bilateral lower lung pneumonia. 5. See past history Plan. 1. NG feedings. 2. Mechanical ventilation weaning protocol 3. Physical therapy protocol while on mechanical ventilation. 4. Proton pump inhibitor protocol 5. Deep venous thrombophlebitis prevention protocol. 6. Protocol antibiotics. 7. Agree with methylprednisolone. 8. Inhalation therapy 9. Daily chest x-rays ABGs and lab 10. Sputum cultures and blood cultures. 11. Start Diflucan. Sputum has Zoë 12. Doppler venograms of the lower extremities. Calves are slightly tender and the patient had a recent hospitalization. Rule out deep venous thrombophlebitis. 13. This patient probably has a good bit of retained secretions and might benefit from fiberoptic bronchoscopy. Dr. Martin knows his case well will reevaluate in the morning. 14. Blood cultures have been drawn. Home Medications Medication Instructions Recorded Confirmed Type Atorvastatin [Lipitor] 10 mg PO DAILY 05/07/16 11/19/16 History Cetirizine Tab [ZyrTEC Tab] 10 mg PO DAILY 05/07/16 11/19/16 History Diltiazem HCl [Diltiazem ER (24 360 mg PO DAILY 05/07/16 11/19/16 History hr)] Furosemide Tab [Lasix Tab] 40 mg PO DAILY 05/07/16 11/19/16 History Pantoprazole Tab [Protonix Tab] 40 mg PO DAILY 05/07/16 11/19/16 History Theophylline ER Tab (24 Hr) 400 mg PO DAILY 05/07/16 11/19/16 History Albuterol Sulfate [Ventolin HFA] 2 puff INH Q4H PRN 11/11/16 11/19/16 History Budesonide/Formoterol 160-4.5 2 puff INH BID 11/11/16 11/19/16 History [Symbicort 160-4.5] Roflumilast [Daliresp] 500 mcg PO DAILY 11/11/16 11/19/16 History Acetaminophen Tab [Tylenol Tab] 325 mg PO Q4H PRN #0 tablet 11/16/16 11/19/16 Rx Levofloxacin Tab [Levaquin Tab] 750 mg PO DAILY #7 tablet 11/16/16 11/19/16 Rx Magnesium Hydroxide Susp [Milk of 30 ml PO BID PRN #0 11/16/16 11/19/16 Rx Magnesia] Melatonin 3 mg PO BEDTIME PRN #0 tablet 11/16/16 11/19/16 Rx predniSONE [Prednisone] 20 mg PO DIRECTED 10 Days 11/16/16 11/19/16 Rx Allergies Allergy/AdvReac Type Severity Reaction Status Date / Time No Known Allergies Allergy Unverified 11/19/16 14:39 Exam (Pulmonay) H&P - Constitutional Vitals: Period Temp Pulse Resp BP Sys/Graf Pulse Ox Last 24 Hr 96.5 F-97.5 F 96-127 16-60 85-181/61-90 91-100 Medical,Surgical,& Family Hx - Medical History Cardio: History of: Hypertension, Cardiovascular Problems HEENT: History of: Eye Problem (eye surgery) Endocrine: History of: Dyslipidemia Rheumatology: History of;: Gout Respiratory: History of: COPD, Respiratory Problems (emphysema) - Family History Family History: Reports;: Family Cancer (mother, brother, aunt) - Social History Smoking Status: Unknown if ever smoked Frequency of Alcohol Use: None Type of Drug Use: Unknown Results - Labs CBC & BMP: 11/19/16 17:51 11/19/16 17:51 Quality Measures - VTE Deep Vein Thrombosis/Pulmonary Embolism Present on Admission: No
[2016-11-20] MEDS: PANTOPRAZOLE 40 MG VIAL IV SCH (08:39)
[2016-11-20] MEDS: FLUCONAZOLE INJ 200 MG in PREMIX 1 EACH IV SCH (08:46)
[2016-11-20] MEDS: ATORVASTATIN 10 MG TABLET PO SCH (08:48)
--- NOTE | 2016-11-20 08:54 | EKG Report ---
Stationary ECG Study [facility] Test Date: 11/20/2016 8:54:30 AM Pat Name: JOSE MANUEL PORTILLO Department: Room: 130 Gender: M [employer]: TRIPP : [id number] Requested by: Sandip Abbott Order Number: [id number] Reading MD: EARNESTINE JOHNSON Intervals [place] Rate: 118 P: 91 MO: 116 QRS: -74 QRSD: 74 T: 91 QT: 416 QTc: 486 Interpretive Statements SINUS TACHYCARDIA WITH SHORT MO INTERVAL LEFT ATRIAL ABNORMALITY INDETERMINATE AXIS POSSIBLE RIGHT VENTRICULAR CONDUCTION DELAY LEFT ANTERIOR FASCICULAR BLOCK Electronically Signed On 11-20-16 17:38:03 CDT by EARNESTINE JOHNSON [email or web address]
[2016-11-20] MEDS: ALBUTEROL/IPRATROPIUM 3 ML NEB RESP TX SCH ×3 (08:56→20:45)
--- NOTE | 2016-11-20 09:26 | General Surgery Progress Note ---
Assessment and Plan (1) Pneumothorax, acute Status: Acute Assessment and plan: Impression: Pneumothorax right side Plan: Small air leak. Continue chest tube to suction. Chest x-ray improved. Current Visit: Yes Subjective Narrative: Remains intubated. ABGs look better. Exam - Constitutional Vitals: Period Temp Pulse Resp BP Sys/Graf Pulse Ox Last 24 Hr 96.5 F-97.5 F 96-127 16-60 85-181/61-90 91-100 - Respiratory Respiratory exam: Present: clear to auscultation bilaterally, other (chest tube with minimal output. Small air leak noted.) Results - Labs CBC & BMP: 11/19/16 17:51 11/19/16 17:51 - Diagnostic Findings Procedure: X-ray: report reviewed by me, image reviewed by me Quality Measures - VTE Deep Vein Thrombosis/Pulmonary Embolism Present on Admission: No
--- NOTE | 2016-11-20 09:38 | Hospitalist Progress Note ---
Assessment and Plan (1) Acute respiratory failure Status: Acute Assessment and plan: Patient has a history of COPD and a bronchospastic disease.CXR done yesterday showed a small right sided pneumothorax and he currently has a chest tube placed. Microbiology. On 11/14/2016 the patient's sputum grew Zoë. Gram stain from 11/19/2016 shows less than 25 white blood cells per low power field. There are few gram-positive cocci and a few yeast. Microbiology 11/19/16- Sputum- no growth Plan continue vent support, IV steroids, IV antibiotics, chest tube, IV diflucan, nebs, theophylline Follow Pulmonology and CT surgery's recommendations Repeat CXR in am GI and DVT prophylasix Follow dopplers of LE Current Visit: Yes (2) Acute exacerbation of chronic obstructive pulmonary disease (COPD) Status: Acute Assessment and plan: continue with vent support see treatment plan above Current Visit: Yes (3) Hypertension Status: Chronic Assessment and plan: borderline, will reduce Cardizem to 30mg q6hr, follow response. Current Visit: No Qualifiers: Hypertension type: essential hypertension Qualified Code(s): I10 - Essential (primary) hypertension (4) Dyslipidemia Status: Chronic Assessment and plan: will get Lipids, continue with statins Current Visit: No (5) Hyperglycemia Status: Acute Assessment and plan: due to ? steroids. Plan will place on accucheks, SSC insulin, check HA1c level Current Visit: Yes Hospitalist: Subjective Interval history: Patient was admitted yesterday for respiratory failure and subsequently intubated. He was also found to have a small right-sided pneumothorax and a chest tube was placed. Microbiology. On 11/14/2016 the patient's sputum grew Zoë. Gram stain from 11/19/2016 shows less than 25 white blood cells per low power field. There are few gram-positive cocci and a few yeast. This morning, he was awake, still intubated, chest tube was still leaking air. Exam - Constitutional Vitals: Period Temp Pulse Resp BP Sys/Graf Pulse Ox Last 24 Hr 96.5 F-97.5 F 96-127 16-60 85-181/61-90 91-100 General appearance: no acute distress, other (awake but intubated) - Respiratory Respiratory exam: Present: decreased breath sounds - Cardiovascular Cardiovascular exam: Present: regular rate and rhythm - GI/Abdominal GI/Abdominal exam: Present: normal bowel sounds - Extremities Exam Extremities exam: Present: normal inspection - Neurological Exam Neurological exam: Present: other (awake) Results - Labs CBC & BMP: 11/19/16 17:51 11/19/16 17:51 Lab Results: I have reviewed the past 24 hour labs Quality Measures - VTE Deep Vein Thrombosis/Pulmonary Embolism Present on Admission: No
[2016-11-20] MEDS: PROPOFOL 1,000 MG/100 ML BOTTLE IV SCH ×2 (09:46→18:31)
[2016-11-20] MEDS ORDERED: GLUCAGON 1 MG VIAL IM PRN (09:58)
[2016-11-20] MEDS ORDERED: DEXTROSE 50% 25 GM/50 ML VIAL IV PRN (09:58)
[2016-11-20] MEDS: SODIUM CHLORIDE 0.9% 1,000 ML IV SCH (10:19)
[2016-11-20] MEDS: fentaNYL INJ 1,250 MCG in SODIUM CHLORIDE 0.9% 225 ML IV SCH ×2 (10:22→20:19)
--- NOTE | 2016-11-20 10:26 | Ultrasound Report ---
Bilateral lower extremity venous Doppler with solorio scale, Spectral Doppler and color-flow analysis performed and interpreted. Indication: Shortness of breath. Scanning over both common femoral veins, superficial femoral veins, greater saphenous veins and popliteal veins demonstrates normal compressibility, color flow, and augmentation. Impression: No evidence of DVT seen in either lower extremity. PROCEDURE INTERPRETED AT [facility] DEPARTMENT OF RADIOLOGY Final Report Signed by: Dr. Yenny Prakash
[2016-11-20] MEDS: INSULIN REGULAR 100 UNIT/ML SUBCUT SCH ×2 (11:49→18:02)
[2016-11-20] MEDS: DILTIAZEM 30 MG TABLET PO SCH ×2 (13:59→18:24)
[2016-11-20] MEDS: LEVOFLOXACIN INJ 750 MG in PREMIX 1 EACH IV SCH (16:20)
[2016-11-20] MEDS: ENOXAPARIN 40 MG/0.4 ML SYRINGE SUBCUT SCH (16:21)
[2016-11-21] MEDS: methylPREDNISolone SOD SUC 125 MG/2 ML VIAL IV SCH ×3 (00:29→17:45)
[2016-11-21] MEDS: DILTIAZEM 30 MG TABLET PO SCH ×5 (00:29→23:59)
[2016-11-21] MEDS: THEOPHYLLINE 5.33 MG/ML 30 ML/BOTTLE PO SCH ×4 (00:31→17:52)
[2016-11-21] MEDS: INSULIN REGULAR 100 UNIT/ML SUBCUT SCH ×4 (01:06→18:34)
[2016-11-21] MEDS: ALBUTEROL/IPRATROPIUM 3 ML NEB RESP TX SCH ×4 (01:24→19:13)
[2016-11-21] MEDS: PIPERACILLIN/TAZOBACTAM 3,375 MG in SODIUM CHLORIDE 0.9% 100 ML IV SCH ×3 (02:03→17:46)
[2016-11-21] MEDS: fentaNYL INJ 1,250 MCG in SODIUM CHLORIDE 0.9% 225 ML IV SCH ×3 (02:06→21:01)
[2016-11-21] MEDS: PROPOFOL 1,000 MG/100 ML BOTTLE IV SCH ×3 (02:55→21:00)
[2016-11-21 04:28] LABS: ABG Base Excess 8.4 MMOL/L (-2.5-2.5); ABG HCO3 32.2 MMOL/L (20-26); ABG Oxygen Saturation 99.3 % (95-100); ABG PCO2 57.4 MM HG (35-48); ABG PH 7.398 (7.35-7.45); ABG TCO2 31.1 MMOL/L (23-27); Pt O2 Delivery Device Ventilator
[2016-11-21 05:45] LABS: Basophils % 0.1 % (0.0-0.8); Hematocrit 40.3 VOL% (42.0-52.0); Hemoglobin 12.4 GM/DL (14.0-18.0); Immature Granulocytes % 1.3 %; Immature Granulocytes Absolute 0.26 #; Lymphocytes # 0.3 10*3/uL (1.4-4.0); Lymphocytes % 1.7 % (21.2-54.2); Mean Corpuscular HGB Conc 30.8 GM/DL (32-36); Mean Corpuscular Hemoglobin 26 PG (27-34); Mean Corpuscular Volume 84.3 FL (87-102); Mean Platelet Volume 9.7 FL (9.6-12.0); Monocytes # 0.7 10*3/uL (0.11-0.8); Monocytes % 3.6 % (1.7-12.7); Neutrophils # 18.1 10*3/uL (1.4-7.4); Neutrophils % 93.3 % (38.7-73.9); Platelet Count 318 T/CUMM (130-400); Red Blood Count 4.78 MC/CUMM (3.8-5.5); Red Cell Distribution Width 14.7 % (9.3-17.3); White Blood Count 19.3 T/CUMM (4-12)
[2016-11-21 06:11] LABS: Hypochromasia 1+; Lymphocytes 2 % (20-55); Platelet Estimate Adequate; Segmented Neutrophils 96 % (50-85); Total Cells Counted 100
[2016-11-21] MEDS: SODIUM CHLORIDE 0.9% 1,000 ML IV SCH ×2 (06:11→10:29)
[2016-11-21 06:12] LABS: Calcium 8.3 MG/DL (8.5-10.1); Osmolality,Calculated 299.7 MOS/KG (273-304)
[2016-11-21 06:16] LABS: Risk Ratio 1.73; VLDL CHOLESTEROL 34.4 MG/DL
--- NOTE | 2016-11-21 07:27 | XRay Report ---
XR chest 1V portable Indication: Shortness of breath. Ventilator. Chest one view: Comparison yesterday. Endotracheal tube, NG tube, right-sided chest tube, normal heart size and mediastinal contour, bullous emphysema are stable. Continued scarring at the lung bases noted. Impression: Overall, no significant change. PROCEDURE INTERPRETED AT [facility] DEPARTMENT OF RADIOLOGY Final Report Signed by: Ben Taylor M.D.
--- NOTE | 2016-11-21 07:47 | Pulmonology Progress Note ---
Pulmonary - PN: Subj Interval history: Patient is a 66-year-old black man with a long history of COPD along with hypertension and hyperlipidemia. He apparently was in the hospital recently with an exacerbation of his COPD. He went home and did not get any better and came back with more shortness of breath. He was found to have a small right spontaneous pneumothorax. He had to be intubated now on the ventilator. He has a right chest tube with no air leak now. His oxygenation is doing better. At present he seems to be relatively comfortable on the ventilator. Exam (Progress Note) - Constitutional Vitals: Period Temp Pulse Resp BP Sys/Graf Pulse Ox Last 24 Hr 97.0 F-97.9 F 93-118 9-31 85-153/58-97 90-100 General appearance: no acute distress, under weight, other (Patient looks comfortable on the ventilator.) - Head Head exam: Present: normal inspection, normocephalic - Eye Eye exam: Present: EOMI. Absent: scleral icterus Pupils: Present: RAHEEL - ENT ENT exam: Present: other (ET tube is in good position.) - Neck Neck exam: Present: normal inspection. Absent: lymphadenopathy, thyromegaly - Respiratory Respiratory exam: Present: decreased breath sounds. Absent: rhonchi - Cardiovascular Cardiovascular exam: Present: regular rate and rhythm, tachycardia. Absent: gallop, systolic murmur - GI/Abdominal GI/Abdominal exam: Present: normal bowel sounds, soft. Absent: distended, organomegaly, tenderness - Extremities Exam Extremities exam: Absent: calf tenderness, edema - Neurological Exam Neurological exam: Present: alert - Skin Skin exam: Present: warm, dry Results - Labs CBC & BMP: 11/21/16 05:27 11/21/16 05:27 Labs: His PO2 is 219 on 60% oxygen. His PCO2 is 57 with a pH of 7.39 - Diagnostic Findings Procedure: Chest x-ray: image reviewed by me, report reviewed by me (Chest x- ray shows COPD changes with slight increased markings in the bases) Assessment and Plan (1) Hypertension Status: Chronic Assessment and plan: He appears to be hemodynamically stable at present. Current Visit: No Qualifiers: Hypertension type: essential hypertension Qualified Code(s): I10 - Essential (primary) hypertension (2) Pneumothorax, acute Status: Acute Assessment and plan: His right lung is expanded and there is no pneumothorax now. Current Visit: Yes (3) Acute respiratory failure Status: Acute Assessment and plan: The patient's PCO2 was over 100 when he came to the emergency room. Current Visit: Yes (4) Acute exacerbation of chronic obstructive pulmonary disease (COPD) Status: Acute Assessment and plan: Patient has significant COPD and is being treated for an exacerbation. We will continue with ventilatory support. Current Visit: Yes
[2016-11-21] MEDS: ATORVASTATIN 10 MG TABLET PO SCH ×2 (09:00→09:04)
[2016-11-21] MEDS: PANTOPRAZOLE 40 MG VIAL IV SCH (09:00)
--- NOTE | 2016-11-21 10:31 | General Surgery Progress Note ---
Assessment and Plan (1) Pneumothorax, acute Status: Acute Assessment and plan: Impression: Pneumothorax right side Plan: Continue chest tube to suction a today. Chest x-ray looks good. Current Visit: Yes Subjective Narrative: Remains intubated. Exam - Constitutional Vitals: Period Temp Pulse Resp BP Sys/Graf Pulse Ox Last 24 Hr 97.0 F-97.9 F 93-118 9-31 101-153/62-97 90-100 General appearance: no acute distress - Head Head exam: Present: normocephalic - Respiratory Respiratory exam: Present: clear to auscultation bilaterally, other (chest tube with small air leak. Appears improved. No drainage.) - Cardiovascular Cardiovascular exam: Present: RRR Results - Labs CBC & BMP: 11/21/16 05:27 11/21/16 05:27 Lab Results: I have reviewed the past 24 hour labs Quality Measures - VTE Deep Vein Thrombosis/Pulmonary Embolism Present on Admission: No
[2016-11-21] MEDS ORDERED: SUCCINYLCHOLINE 200 MG/10 ML VIAL ONE (11:16)
[2016-11-21] MEDS: FLUCONAZOLE INJ 200 MG in PREMIX 1 EACH IV SCH (12:08)
--- NOTE | 2016-11-21 12:09 | Anesthesia ---
Anesthesia Procedures - Intubation Time out performed intubation: Yes Sedative: other Mg given sedative: 80 (Propofol) Paralytic: Succinylcholine Mg given paralytic: 100 Laryngoscope: Princess ET Tube Size: 8 Tube Secured Depth (cm): 24 Tube Secured Location: lips Tube Placement Confirmation: visualized tube passing through cords, equal breath sounds bilaterally, no breath sounds over epigastrium, confirmation by capnometry, confirmation detector color change Patient tolerated procedure intubation: well Intubation Complications: none Additional Commets: Patient was reintubated at 11: 25 am with ETT # 8.0 as per request of the nurse taking care of the patient and Dr. Martin due to an ETT cuff leak.
--- NOTE | 2016-11-21 12:19 | Hospitalist Progress Note ---
Assessment and Plan (1) Acute respiratory failure Status: Acute Assessment and plan: Patient has a history of COPD and a bronchospastic disease.CXR done yesterday showed a small right sided pneumothorax and he currently has a chest tube placed. Microbiology. On 11/14/2016 the patient's sputum grew Zoë. Gram stain from 11/19/2016 shows less than 25 white blood cells per low power field. There are few gram-positive cocci and a few yeast. Microbiology 11/19/16- Sputum- no growth 11/21/2016 Chest tube still has small leak. Patient looks comfortable on the vent. He was awake. Dopplers- negative for DVT. Plan continue vent support, IV steroids, IV antibiotics, chest tube, IV diflucan, nebs, theophylline Follow Pulmonology and CT surgery's recommendations Repeat CXR in am GI and DVT prophylasix Current Visit: Yes (2) Acute exacerbation of chronic obstructive pulmonary disease (COPD) Status: Acute Assessment and plan: continue with vent support see treatment plan above Current Visit: Yes (3) Hypertension Status: Chronic Assessment and plan: stable on Cardizem to 30mg q6hr. Current Visit: No Qualifiers: Hypertension type: essential hypertension Qualified Code(s): I10 - Essential (primary) hypertension (4) Dyslipidemia Status: Chronic Assessment and plan: Lipids-noted, continue with statins Current Visit: No (5) Hyperglycemia Status: Acute Assessment and plan: due to ? steroids. Plan blood sugar is controlled on SSC, we will continue.HA1c level-7.0 Current Visit: Yes Hospitalist: Subjective Interval history: Patient was awake and intubated.He still has his chest tube in place. Exam - Constitutional Vitals: Period Temp Pulse Resp BP Sys/Graf Pulse Ox Last 24 Hr 97.0 F-97.9 F 93-118 9-31 101-164/62-97 93-100 General appearance: no acute distress - Respiratory Respiratory exam: Present: clear to auscultation bilaterally, other (right sided chest tube to sunction in place) - Cardiovascular Cardiovascular exam: Present: regular rate and rhythm - GI/Abdominal GI/Abdominal exam: Present: normal bowel sounds - Extremities Exam Extremities exam: Present: normal inspection Results - Labs CBC & BMP: 11/21/16 05:27 11/21/16 05:27 Lab Results: I have reviewed the past 24 hour labs Quality Measures - VTE Deep Vein Thrombosis/Pulmonary Embolism Present on Admission: No
--- NOTE | 2016-11-21 12:38 | XRay Report ---
Referring Physician: Kyle Martin MD Exam: XR chest 1V portable Date: November 21, 2016 at 11:36 AM Reason: Mechanical ventilation Comparison: Chest one view portable November 21, 2016 at 3:28 AM Findings: An endotracheal tube, feeding tube and right chest tube are again in place. The distal tip of the feeding tube is located within the gastric fundus. The distal tip of the endotracheal tube projects just above the aortic arch, approximately 5 cm above the taylor. The heart appears stable in size. There are scattered opacities within the mid and lower lung zones bilaterally. This could represent atelectasis, pulmonary edema and/or pneumonia. There is also emphysema with bleb formation. The bleb formation makes evaluation for a pneumothorax is difficult, but no definite pneumothorax is identified. There may be minimal bilateral pleural fluid. The osseous structures appear stable. Impression: 1. Tubes and lines as above. No definite pneumothorax is identified. 2. There are again scattered opacities within the mid and lower lung zones bilaterally. This is similar to before. PROCEDURE INTERPRETED AT [facility] DEPARTMENT OF RADIOLOGY Final Report Signed by: Dr. Shelby Guerrier
[2016-11-21] MEDS: ENOXAPARIN 40 MG/0.4 ML SYRINGE SUBCUT SCH (17:46)
[2016-11-21] MEDS: LEVOFLOXACIN INJ 750 MG in PREMIX 1 EACH IV SCH (17:46)
[2016-11-22] MEDS: INSULIN REGULAR 100 UNIT/ML SUBCUT SCH ×4 (00:01→19:20)
[2016-11-22] MEDS: PIPERACILLIN/TAZOBACTAM 3,375 MG in SODIUM CHLORIDE 0.9% 100 ML IV SCH ×3 (00:01→16:27)
[2016-11-22] MEDS: methylPREDNISolone SOD SUC 125 MG/2 ML VIAL IV SCH ×3 (00:16→16:27)
[2016-11-22] MEDS: ALBUTEROL/IPRATROPIUM 3 ML NEB RESP TX SCH ×5 (00:20→23:52)
[2016-11-22] MEDS: SODIUM CHLORIDE 0.9% 1,000 ML IV SCH ×4 (02:29→23:39)
[2016-11-22] MEDS: PROPOFOL 1,000 MG/100 ML BOTTLE IV SCH ×3 (02:31→16:01)
[2016-11-22 03:13] LABS: Basophils % 0.1 % (0.0-0.8); Hematocrit 35.8 VOL% (42.0-52.0); Hemoglobin 10.7 GM/DL (14.0-18.0); Immature Granulocytes Absolute 0.32 #; Lymphocytes # 0.3 10*3/uL (1.4-4.0); Lymphocytes % 1.7 % (21.2-54.2); Mean Corpuscular HGB Conc 29.9 GM/DL (32-36); Mean Corpuscular Hemoglobin 25 PG (27-34); Mean Corpuscular Volume 84.6 FL (87-102); Mean Platelet Volume 9.6 FL (9.6-12.0); Monocytes # 0.4 10*3/uL (0.11-0.8); Monocytes % 2.4 % (1.7-12.7); Neutrophils # 15.1 10*3/uL (1.4-7.4); Neutrophils % 93.8 % (38.7-73.9); Platelet Count 272 T/CUMM (130-400); Red Blood Count 4.23 MC/CUMM (3.8-5.5); Red Cell Distribution Width 14.7 % (9.3-17.3); White Blood Count 16.1 T/CUMM (4-12)
[2016-11-22 03:47] LABS: Calcium 8.3 MG/DL (8.5-10.1); Osmolality,Calculated 298.7 MOS/KG (273-304); Potassium 3.9 MMOL/L (3.5-5.1)
[2016-11-22 03:51] LABS: Magnesium 2.8 MG/DL (1.8-2.4); Phosphorous 3.2 MG/DL (2.5-4.9)
[2016-11-22 03:58] LABS: Lymphocytes 1 % (20-55); Segmented Neutrophils 99 % (50-85)
[2016-11-22 04:00] LABS: Platelet Estimate Normal; Total Cells Counted 100
[2016-11-22 04:09] LABS: ABG Base Excess 9.1 MMOL/L (-2.5-2.5); ABG HCO3 33.9 MMOL/L (20-26); ABG Oxygen Saturation 98.2 % (95-100); ABG PCO2 47.5 MM HG (35-48); ABG PH 7.472 (7.35-7.45); ABG PO2 122.9 MM HG (80-95); ABG TCO2 35.4 MMOL/L (23-27); Allen Test Positive; Pt O2 Delivery Device Ventilator
[2016-11-22] MEDS: DILTIAZEM 30 MG TABLET PO SCH ×4 (06:01→23:22)
[2016-11-22] MEDS: THEOPHYLLINE 5.33 MG/ML 30 ML/BOTTLE PO SCH ×5 (06:01→23:22)
[2016-11-22] MEDS ORDERED: LIDOCAINE 1% 20 ML VIAL MISC INJ ONE (07:30)
--- NOTE | 2016-11-22 07:30 | XRay Report ---
XR chest 1V portable Indication: Shortness of breath. Intubated. Chest one view: Since yesterday, endotracheal tube, NG tube, normal heart size and mediastinal contour, bullous emphysematous changes especially right upper lobe, right mid chest tube, and absence of pneumothorax are stable. No new infiltrates are seen. Impression: No significant change. PROCEDURE INTERPRETED AT [facility] DEPARTMENT OF RADIOLOGY Final Report Signed by: Ben Taylor M.D.
--- NOTE | 2016-11-22 07:52 | Pulmonology Progress Note ---
Pulmonary - PN: Subj Interval history: Patient is a 66-year-old black man with a long history of COPD along with hypertension and hyperlipidemia. He apparently was in the hospital recently with an exacerbation of his COPD. He went home and did not get any better and came back with more shortness of breath. He was found to have a small right spontaneous pneumothorax. He had to be intubated now on the ventilator. He has a right chest tube with no air leak now. His oxygenation is doing better. Yesterday he was having trouble with his ET tube and had to be reintubated. Now he is doing much better. His oxygenation is better and is ventilating okay. His chest x-ray is stable with COPD changes. Will proceed with a therapeutic bronchoscopy to clear airways. Exam (Progress Note) - Constitutional Vitals: Period Temp Pulse Resp BP Sys/Graf Pulse Ox Last 24 Hr 97 F-97.7 F 84-111 12-28 99-182/57-93 89-100 Exam: General appearance: no acute distress, under weight, other (Patient looks comfortable on the ventilator. He is alert and responding well.) - Head Head exam: Present: normal inspection, normocephalic - Eye Eye exam: Present: EOMI. Absent: scleral icterus Pupils: Present: RAHEEL - ENT ENT exam: Present: other (ET tube has been reinserted and looks better.) - Neck Neck exam: Present: normal inspection. Absent: lymphadenopathy, thyromegaly - Respiratory Respiratory exam: Present: decreased breath sounds. He has poor air movement but no wheezing. - Cardiovascular Cardiovascular exam: Present: regular rate and rhythm, tachycardia. Absent: gallop, systolic murmur - GI/Abdominal GI/Abdominal exam: Present: normal bowel sounds, soft. Absent: distended, organomegaly, tenderness - Extremities Exam Extremities exam: Absent: calf tenderness, edema - Neurological Exam Neurological exam: Present: alert - Skin Skin exam: Present: warm, dry Results - Labs CBC & BMP: 11/22/16 03:00 11/22/16 03:00 Labs: PO2 is 122 with a PCO2 of 47 and pH of 7.47 - Diagnostic Findings Procedure: Chest x-ray: image reviewed by me, report reviewed by me (Chest x- ray is stable but consistent with COPD.) Assessment and Plan (1) Hypertension Status: Chronic Assessment and plan: He appears to be hemodynamically stable at present. His blood pressure and heart rate are stable. Current Visit: No Qualifiers: Hypertension type: essential hypertension Qualified Code(s): I10 - Essential (primary) hypertension (2) Pneumothorax, acute Status: Acute Assessment and plan: His right lung is expanded and there is no pneumothorax now. I do not see an air leak. Current Visit: Yes (3) Acute respiratory failure Status: Acute Assessment and plan: The patient's PCO2 was over 100 when he came to the emergency room. He is doing well on the ventilator now. Current Visit: Yes (4) Acute exacerbation of chronic obstructive pulmonary disease (COPD) Status: Acute Assessment and plan: Patient has significant COPD and is being treated for an exacerbation. We will continue with ventilatory support. Will proceed with a therapeutic bronchoscopy today. Current Visit: Yes
--- NOTE | 2016-11-22 07:55 | Operative Note ---
Date of procedure: 11/22/16 Pre-op diagnosis: Respiratory failure Post-op diagnosis: other (Bronchitis with mucous plugging.) Procedure: The patient is a 66-year-old black man on the ventilator with COPD. A therapeutic bronchoscopy will be done to clear airways. He is sedated with Diprovan. Procedure: The fiberoptic bronchoscope was passed to the ET tube into the airways. The bronchopulmonary segment were identified but no specimens obtained. Findings: The ET tube is in good position in the trachea. The main bronchi are open. There is thick white mucus and plugs seen bilaterally. These were washed and cleared. There is some mild bronchitis present but no endobronchial lesions seen. The right upper lobe, right middle lobe, and right lower lobe are all open. The left upper lobe, lingula, and left lower lobe are all open. Once the airways were clear the procedure was stopped. The patient tolerated the procedure well without problems. Impression: Bronchitis with mucous plugging. Plan: We will continue weaning from the ventilator. Anesthesia: conscious sedation Surgeon / Physician: Kyle Martin Estimated blood loss: none Specimens: none sent Condition: stable Disposition: ICU Results - Labs CBC & BMP: 11/22/16 03:00 11/22/16 03:00 Discharge Plan - Discharge Medications No Action Cetirizine Tab [ZyrTEC Tab] 10 mg PO DAILY Atorvastatin [Lipitor] 10 mg PO DAILY Theophylline ER Tab (24 Hr) 400 mg PO DAILY Diltiazem HCl [Diltiazem ER (24 hr)] 360 mg PO DAILY Pantoprazole Tab [Protonix Tab] 40 mg PO DAILY Furosemide Tab [Lasix Tab] 40 mg PO DAILY Albuterol Sulfate [Ventolin HFA] 2 puff INH Q4H PRN PRN Reason: Shortness Of Breath/Wheezing Roflumilast [Daliresp] 500 mcg PO DAILY Levofloxacin Tab [Levaquin Tab] 750 mg PO DAILY #7 tablet Budesonide/Formoterol 160-4.5 [Symbicort 160-4.5] 2 puff INH BID Acetaminophen Tab [Tylenol Tab] 325 mg PO Q4H PRN #0 tablet PRN Reason: fever, headache/body aches Magnesium Hydroxide Susp [Milk of Magnesia] 30 ml PO BID PRN #0 PRN Reason: Constipation Melatonin 3 mg PO BEDTIME PRN #0 tablet PRN Reason: Sleep predniSONE [Prednisone] 20 mg PO DIRECTED 10 Days - Follow Up or Referral - Forms/Instructions
[2016-11-22] MEDS: PANTOPRAZOLE 40 MG VIAL IV SCH (09:10)
[2016-11-22] MEDS: FLUCONAZOLE INJ 200 MG in PREMIX 1 EACH IV SCH (09:12)
[2016-11-22] MEDS: ATORVASTATIN 10 MG TABLET PO SCH (09:19)
[2016-11-22 09:54] LABS: Apearance,Urine Slightly Hazy (Clear); Bilirubin,Urine Negative (Negative); Blood, Urine Large mg/dL (Negative); Glucose,Urine (UA) Negative (Negative); Ketones,Urine Negative (Negative); Mucus,Urine Occasional /LPF (Occasional); Nitrite,Urine Negative (Negative); Protein,Urine 30 MG/DL; RBC,Urine 1155 /HPF (0-4); Urine Color Yellow (Yellow); Urine Specific Gravity 1.031 (1.001-1.035); Urine Urobilinogen < 2.0 EU/DL (0.2-1.0); WBC,Urine 16 /HPF (0-6)
--- NOTE | 2016-11-22 12:04 | Hospitalist Progress Note ---
Assessment and Plan (1) Acute respiratory failure Status: Acute Assessment and plan: Patient has a history of COPD and a bronchospastic disease.CXR done yesterday showed a small right sided pneumothorax and he currently has a chest tube placed. Microbiology. On 11/14/2016 the patient's sputum grew Zoë. Gram stain from 11/19/2016 shows less than 25 white blood cells per low power field. There are few gram-positive cocci and a few yeast. Microbiology 11/19/16- Sputum- no growth 11/21/2016 Chest tube still has small leak. Patient looks comfortable on the vent. He was awake. Dopplers- negative for DVT. 11/22/2016 Patient was reintubated yesterday because he was having problems with his ET. Chest tube to sunction still in place.CXR showed no significant change Plan continue vent support, IV steroids, IV antibiotics, chest tube, IV diflucan, nebs, theophylline Follow Pulmonology and CT surgery's recommendations Repeat CXR in am GI and DVT prophylasix Current Visit: Yes (2) Acute exacerbation of chronic obstructive pulmonary disease (COPD) Status: Acute Assessment and plan: continue with vent support see treatment plan above Current Visit: Yes (3) Hypertension Status: Chronic Assessment and plan: stable on Cardizem to 30mg q6hr. Current Visit: No Qualifiers: Hypertension type: essential hypertension Qualified Code(s): I10 - Essential (primary) hypertension (4) Dyslipidemia Status: Chronic Assessment and plan: Lipids-noted, continue with statins Current Visit: No (5) Hyperglycemia Status: Acute Assessment and plan: due to ? steroids. Plan blood sugar is controlled on SSC, we will continue.HA1c level-7.0 Current Visit: Yes Hospitalist: Subjective Interval history: Patient was seen on the vent.He was re-intubated yesterday because he was having a problem with his ET tube. He had a bronchoscopy this am.His chest tube is still connected to sunction.Tube feeding was held because of bronch. Exam - Constitutional Vitals: Period Temp Pulse Resp BP Sys/Graf Pulse Ox Last 24 Hr 97 F-97.7 F 84-111 12-23 99-145/57-92 94-100 General appearance: no acute distress, other (awake, intubated, chest tube to sunction in place) - Head Head exam: Present: normal inspection - Respiratory Respiratory exam: Present: clear to auscultation bilaterally - Cardiovascular Cardiovascular exam: Present: regular rate and rhythm - GI/Abdominal GI/Abdominal exam: Present: normal bowel sounds - Extremities Exam Extremities exam: Present: normal inspection Results - Labs CBC & BMP: 11/22/16 03:00 11/22/16 03:00 Lab Results: I have reviewed the past 24 hour labs Quality Measures - VTE Deep Vein Thrombosis/Pulmonary Embolism Present on Admission: No
--- NOTE | 2016-11-22 14:24 | General Surgery Progress Note ---
Assessment and Plan (1) Pneumothorax, acute Status: Acute Assessment and plan: Impression: Pneumothorax right side Plan: We'll place chest tube to water seal today. Current Visit: Yes Subjective Narrative: Appears improved. Exam - Constitutional Vitals: Period Temp Pulse Resp BP Sys/Graf Pulse Ox Last 24 Hr 97 F-97.7 F 84-111 12-23 99-145/57-92 94-100 General appearance: no acute distress - Head Head exam: Present: normocephalic - Neck Neck exam: Present: normal inspection - Respiratory Respiratory exam: Present: clear to auscultation bilaterally, other (left chest tube in place with minimal drainage. I don't see an air leak today.) - Cardiovascular Cardiovascular exam: Present: RRR - GI/Abdominal GI/Abdominal exam: Present: normal bowel sounds - Neurological Exam Neurological exam: Present: alert Speech: Present: normal Results - Labs CBC & BMP: 11/22/16 03:00 11/22/16 03:00 Lab Results: I have reviewed the past 24 hour labs Quality Measures - VTE Deep Vein Thrombosis/Pulmonary Embolism Present on Admission: No
[2016-11-22] MEDS: LEVOFLOXACIN INJ 750 MG in PREMIX 1 EACH IV SCH (15:45)
[2016-11-22] MEDS: ENOXAPARIN 40 MG/0.4 ML SYRINGE SUBCUT SCH (16:27)
[2016-11-23] MEDS: INSULIN REGULAR 100 UNIT/ML SUBCUT SCH ×2 (00:31→05:37)
[2016-11-23] MEDS: PIPERACILLIN/TAZOBACTAM 3,375 MG in SODIUM CHLORIDE 0.9% 100 ML IV SCH ×3 (00:35→17:03)
[2016-11-23] MEDS: methylPREDNISolone SOD SUC 125 MG/2 ML VIAL IV SCH ×3 (00:36→17:03)
[2016-11-23] MEDS: fentaNYL INJ 1,250 MCG in SODIUM CHLORIDE 0.9% 225 ML IV SCH (00:42)
[2016-11-23 03:39] LABS: Allen Test Positive; Pt O2 Delivery Device Ventilator
[2016-11-23 03:40] LABS: ABG Base Excess 6.3 MMOL/L (-2.5-2.5); ABG HCO3 30.1 MMOL/L (20-26); ABG Oxygen Saturation 94.6 % (95-100); ABG PCO2 50.8 MM HG (35-48); ABG PO2 75.7 MM HG (80-95); ABG TCO2 28.8 MMOL/L (23-27)
[2016-11-23 05:04] LABS: Basophils % 0.2 % (0.0-0.8); Eosinophils % 0.1 % (0.00-10.9); Immature Granulocytes % 4.4 %; Immature Granulocytes Absolute 0.72 #; Lymphocytes # 0.4 10*3/uL (1.4-4.0); Lymphocytes % 2.4 % (21.2-54.2); Mean Corpuscular HGB Conc 30.8 GM/DL (32-36); Mean Corpuscular Hemoglobin 26 PG (27-34); Mean Platelet Volume 9.9 FL (9.6-12.0); Monocytes # 0.4 10*3/uL (0.11-0.8); Monocytes % 2.4 % (1.7-12.7); Neutrophils # 14.9 10*3/uL (1.4-7.4); Neutrophils % 90.5 % (38.7-73.9); Platelet Count 238 T/CUMM (130-400); Red Blood Count 4.59 MC/CUMM (3.8-5.5); Red Cell Distribution Width 15.1 % (9.3-17.3); White Blood Count 16.4 T/CUMM (4-12)
[2016-11-23 05:11] LABS: Calcium 8.4 MG/DL (8.5-10.1); Osmolality,Calculated 303.4 MOS/KG (273-304); Potassium 4.5 MMOL/L (3.5-5.1)
[2016-11-23 05:32] LABS: Hypochromasia 1+; Lymphocytes 1 % (20-55); Microcytosis 1+; Segmented Neutrophils 96 % (50-85); Total Cells Counted 100
[2016-11-23 05:33] LABS: Platelet Estimate Adequate
[2016-11-23] MEDS: THEOPHYLLINE 5.33 MG/ML 30 ML/BOTTLE PO SCH (05:37)
[2016-11-23] MEDS: DILTIAZEM 30 MG TABLET PO SCH ×3 (05:37→18:02)
--- NOTE | 2016-11-23 07:17 | Pulmonology Progress Note ---
Pulmonary - PN: Subj Interval history: Patient is a 66-year-old black man with a long history of COPD along with hypertension and hyperlipidemia. He apparently was in the hospital recently with an exacerbation of his COPD. He went home and did not get any better and came back with more shortness of breath. He was found to have a small right spontaneous pneumothorax. He had to be intubated now on the ventilator. He has a right chest tube with no air leak now. Yesterday we did a therapeutic bronchoscopy and removed some plugs. His oxygenation is stable and has done fairly well on CPAP. He is very alert. Hopefully he can come off the ventilator today. Exam (Progress Note) - Constitutional Vitals: Period Temp Pulse Resp BP Sys/Graf Pulse Ox Last 24 Hr 96.9 F-97.9 F 83-101 12-19 113-180/60-98 91-100 Exam: General appearance: no acute distress, under weight, other (Patient looks comfortable on the ventilator. He is alert and responding well. His vital signs are stable.) - Head Head exam: Present: normal inspection, normocephalic - Eye Eye exam: Present: EOMI. Absent: scleral icterus Pupils: Present: RAHEEL - ENT ENT exam: Present: other (ET tube has been reinserted and looks better.) - Neck Neck exam: Present: normal inspection. Absent: lymphadenopathy, thyromegaly - Respiratory Respiratory exam: Present: decreased breath sounds. He has poor air movement but no wheezing. - Cardiovascular Cardiovascular exam: Present: regular rate and rhythm. Absent: gallop, systolic murmur - GI/Abdominal GI/Abdominal exam: Present: normal bowel sounds, soft. Absent: distended, organomegaly, tenderness - Extremities Exam Extremities exam: Absent: calf tenderness, edema - Neurological Exam Neurological exam: Present: alert - Skin Skin exam: Present: warm, dry Results - Labs CBC & BMP: 11/23/16 04:42 11/23/16 04:42 Labs: His PO2 is 75 with a PCO2 of 50 and a pH of 7.41 - Diagnostic Findings Procedure: Chest x-ray: image reviewed by me, report reviewed by me (Chest x- ray shows COPD changes and is about the same.) Assessment and Plan (1) Hypertension Status: Chronic Assessment and plan: He appears to be hemodynamically stable at present. His blood pressure and heart rate are stable. Current Visit: No Qualifiers: Hypertension type: essential hypertension Qualified Code(s): I10 - Essential (primary) hypertension (2) Pneumothorax, acute Status: Acute Assessment and plan: His right lung is expanded and there is no pneumothorax now. I do not see an air leak. His chest x-ray is stable. Current Visit: Yes (3) Acute respiratory failure Status: Acute Assessment and plan: The patient's PCO2 was over 100 when he came to the emergency room. He is doing well on the ventilator now. His ABGs are stable today. Current Visit: Yes (4) Acute exacerbation of chronic obstructive pulmonary disease (COPD) Status: Acute Assessment and plan: Patient has significant COPD and is being treated for an exacerbation. He is doing CPAP fairly well and he is alert and looks comfortable. We will try to extubate today. Current Visit: Yes
--- NOTE | 2016-11-23 07:17 | XRay Report ---
XR chest 1V portable Indication: Intubated. Chest one view: Since yesterday, endotracheal tube, NG tube, mid right chest tube, bullous emphysematous changes of the right upper lobe, and interstitial coarsening of the right lower lung and entire left lung are all stable. No new infiltrates are seen. No pneumothorax demonstrated. Impression: No significant change. PROCEDURE INTERPRETED AT [facility] DEPARTMENT OF RADIOLOGY Final Report Signed by: Ben Taylor M.D.
[2016-11-23] MEDS: ALBUTEROL/IPRATROPIUM 3 ML NEB RESP TX SCH ×3 (07:42→20:00)
--- NOTE | 2016-11-23 08:54 | General Surgery Progress Note ---
Assessment and Plan (1) Pneumothorax, acute Status: Acute Assessment and plan: Impression: Pneumothorax right side Plan: Continue chest tube to waterseal. X-ray today looks good. If he is extubated and doing well tomorrow we may be able to pull the tube. Current Visit: Yes Subjective Narrative: Tolerating weaning trials. About be extubated. Exam - Constitutional Vitals: Period Temp Pulse Resp BP Sys/Graf Pulse Ox Last 24 Hr 96.9 F-97.9 F 83-107 12-19 113-180/60-98 91-99 General appearance: no acute distress - Head Head exam: Present: normocephalic - Neck Neck exam: Present: normal inspection - Respiratory Respiratory exam: Present: clear to auscultation bilaterally, other (chest tube in place with no air leak) - Cardiovascular Cardiovascular exam: Present: RRR - GI/Abdominal GI/Abdominal exam: Present: soft Results - Labs CBC & BMP: 11/23/16 04:42 11/23/16 04:42 Lab Results: I have reviewed the past 24 hour labs Quality Measures - VTE Deep Vein Thrombosis/Pulmonary Embolism Present on Admission: No
[2016-11-23] MEDS: ATORVASTATIN 10 MG TABLET PO SCH (09:27)
[2016-11-23] MEDS: PANTOPRAZOLE 40 MG VIAL IV SCH (09:28)
[2016-11-23] MEDS: FLUCONAZOLE INJ 200 MG in PREMIX 1 EACH IV SCH (09:34)
--- NOTE | 2016-11-23 12:01 | Hospitalist Progress Note ---
Assessment and Plan (1) Acute respiratory failure Status: Acute Assessment and plan: Patient has a history of COPD and a bronchospastic disease.CXR done yesterday showed a small right sided pneumothorax and he currently has a chest tube placed. Microbiology. On 11/14/2016 the patient's sputum grew Zoë. Gram stain from 11/19/2016 shows less than 25 white blood cells per low power field. There are few gram-positive cocci and a few yeast. Microbiology 11/19/16- Sputum- no growth 11/21/2016 Chest tube still has small leak. Patient looks comfortable on the vent. He was awake. Dopplers- negative for DVT. 11/22/2016 Patient was reintubated yesterday because he was having problems with his ET. Chest tube to sunction still in place.CXR showed no significant change 11/23/2016 Doing well on the vent, may be extubated today.Chest tube is to gravity. He may be extubated today Plan Follow Pulmonology and CT surgery's recommendations Current Visit: Yes (2) Acute exacerbation of chronic obstructive pulmonary disease (COPD) Status: Acute Assessment and plan: continue with vent support see treatment plan above Current Visit: Yes (3) Hypertension Status: Chronic Assessment and plan: increase Cardizem to 45mg q6hr,follow response. Current Visit: No Qualifiers: Hypertension type: essential hypertension Qualified Code(s): I10 - Essential (primary) hypertension (4) Dyslipidemia Status: Chronic Assessment and plan: Lipids-noted, continue with statins Current Visit: No (5) Hyperglycemia Status: Acute Assessment and plan: due to ? steroids. Plan blood sugar is controlled on SSC, we will continue.HA1c level-7.0 Current Visit: Yes Hospitalist: Subjective Interval history: patient seen, no new issues. Chest tube now connected to gravity. He may be extubated today.He is tolerating tube feedings Exam - Constitutional Vitals: Period Temp Pulse Resp BP Sys/Graf Pulse Ox Last 24 Hr 96.9 F-97.9 F 83-107 12-19 113-180/60-98 91-99 General appearance: no acute distress, other (awake and intubated) - Respiratory Respiratory exam: Present: clear to auscultation bilaterally - Cardiovascular Cardiovascular exam: Present: regular rate and rhythm - GI/Abdominal GI/Abdominal exam: Present: normal bowel sounds - Extremities Exam Extremities exam: Present: normal inspection - Back Exam Back exam: Present: normal inspection - Neurological Exam Neurological exam: Present: alert Results - Labs CBC & BMP: 11/23/16 04:42 11/23/16 04:42 Lab Results: I have reviewed the past 24 hour labs Quality Measures - VTE Deep Vein Thrombosis/Pulmonary Embolism Present on Admission: No
[2016-11-23] MEDS ORDERED: THEOPHYLLINE ER (24 HR) 400 MG CAPSULE PO SCH (12:30)
[2016-11-23] MEDS: BUDESONIDE/FORMOTEROL 160-4.5 INHALER 6 GM INH SCH ×2 (13:34→20:15)
[2016-11-23] MEDS: SODIUM CHLORIDE 0.9% 1,000 ML IV SCH ×2 (16:18→17:59)
[2016-11-23] MEDS: ENOXAPARIN 40 MG/0.4 ML SYRINGE SUBCUT SCH (17:02)
[2016-11-23] MEDS: LEVOFLOXACIN INJ 750 MG in PREMIX 1 EACH IV SCH (17:03)
[2016-11-24] MEDS: ALBUTEROL/IPRATROPIUM 3 ML NEB RESP TX SCH ×6 (00:04→23:31)
[2016-11-24] MEDS: DILTIAZEM 30 MG TABLET PO SCH ×4 (00:43→18:32)
[2016-11-24] MEDS: PIPERACILLIN/TAZOBACTAM 3,375 MG in SODIUM CHLORIDE 0.9% 100 ML IV SCH ×3 (00:43→18:33)
[2016-11-24] MEDS: methylPREDNISolone SOD SUC 125 MG/2 ML VIAL IV SCH ×3 (00:44→18:35)
[2016-11-24 03:39] LABS: ABG HCO3 30.6 MMOL/L (20-26); ABG Oxygen Saturation 92.8 % (95-100); ABG PCO2 63.1 MM HG (35-48); ABG PH 7.352 (7.35-7.45); ABG PO2 70.9 MM HG (80-95); ABG TCO2 30.9 MMOL/L (23-27); Allen Test Positive; Pt O2 Delivery Device BIPAP
[2016-11-24 05:15] LABS: Basophils % 0.1 % (0.0-0.8); Hematocrit 41.8 VOL% (42.0-52.0); Hemoglobin 12.6 GM/DL (14.0-18.0); Immature Granulocytes % 3.1 %; Immature Granulocytes Absolute 0.62 #; Lymphocytes # 0.2 10*3/uL (1.4-4.0); Lymphocytes % 0.8 % (21.2-54.2); Mean Corpuscular HGB Conc 30.1 GM/DL (32-36); Mean Corpuscular Hemoglobin 26 PG (27-34); Mean Platelet Volume 9.9 FL (9.6-12.0); Monocytes # 0.3 10*3/uL (0.11-0.8); Monocytes % 1.5 % (1.7-12.7); Neutrophils # 18.9 10*3/uL (1.4-7.4); Neutrophils % 94.5 % (38.7-73.9); Platelet Count 270 T/CUMM (130-400); Red Blood Count 4.92 MC/CUMM (3.8-5.5); Red Cell Distribution Width 15.1 % (9.3-17.3)
[2016-11-24 05:43] LABS: Calcium 8.6 MG/DL (8.5-10.1)
[2016-11-24 05:44] LABS: Osmolality,Calculated 302.1 MOS/KG (273-304); Potassium 4.1 MMOL/L (3.5-5.1)
[2016-11-24 05:47] LABS: Hypochromasia 1+; Lymphocytes 1 % (20-55); Microcytosis 1+; Platelet Estimate Adequate; Segmented Neutrophils 98 % (50-85); Total Cells Counted 100
--- NOTE | 2016-11-24 07:09 | XRay Report ---
XR chest 1V portable Indication: Shortness of breath. Chest one view: Since yesterday, patient has been extubated. Right-sided chest tube is stable. No new infiltrates are seen with continued right upper lung bullous emphysema and coarsened interstitial markings of the remainder of the lungs. The anterior junction line remains displaced to left. Heart size remains normal. Impression: Extubation. Otherwise no change. PROCEDURE INTERPRETED AT [facility] DEPARTMENT OF RADIOLOGY Final Report Signed by: Ben Taylor M.D.
--- NOTE | 2016-11-24 07:18 | Pulmonology Progress Note ---
Pulmonary - PN: Subj Interval history: Patient is a 66-year-old black man with a long history of COPD along with hypertension and hyperlipidemia. He apparently was in the hospital recently with an exacerbation of his COPD. He went home and did not get any better and came back with more shortness of breath. He was found to have a small right spontaneous pneumothorax. He was on the ventilator for several days and extubated yesterday. Last night he has struggled some and was very short of breath. He is back on BiPAP now. He is alert and looks reasonably comfortable on BiPAP. His chest x-ray shows left lower lobe atelectasis. He does have very severe lung disease Exam (Progress Note) - Constitutional Vitals: Period Temp Pulse Resp BP Sys/Graf Pulse Ox Last 24 Hr 97.6 F-98.5 F 93-118 14-32 141-200/69-109 85-98 Exam: General appearance: no acute distress, under weight, other (Patient is tolerating BiPAP fairly well.) - Head Head exam: Present: normal inspection, normocephalic - Eye Eye exam: Present: EOMI. Absent: scleral icterus Pupils: Present: RAHEEL - ENT ENT exam: Present: He has a BiPAP mask in place. - Neck Neck exam: Present: normal inspection. Absent: lymphadenopathy, thyromegaly - Respiratory Respiratory exam: Present: decreased breath sounds. He has poor air movement but no wheezing. - Cardiovascular Cardiovascular exam: Present: regular rate and rhythm. Absent: gallop, systolic murmur - GI/Abdominal GI/Abdominal exam: Present: normal bowel sounds, soft. Absent: distended, organomegaly, tenderness - Extremities Exam Extremities exam: Absent: calf tenderness, edema - Neurological Exam Neurological exam: Present: alert - Skin Skin exam: Present: warm, dry Results - Labs CBC & BMP: 11/24/16 04:02 11/24/16 04:02 Labs: ABG showed a PO2 of 70 with a PCO2 of 63 and a pH of 7.35 - Diagnostic Findings Procedure: Chest x-ray: image reviewed by me, report reviewed by me (Chest x- ray shows severe COPD changes with some left lower lobe infiltrate) Assessment and Plan (1) Hypertension Status: Chronic Assessment and plan: He has an elevated blood pressure mainly because of his breathing. Current Visit: No Qualifiers: Hypertension type: essential hypertension Qualified Code(s): I10 - Essential (primary) hypertension (2) Pneumothorax, acute Status: Acute Assessment and plan: His right lung is expanded and there is no pneumothorax now. I do not see an air leak. His chest x-ray is stable. He can probably have the tube removed Current Visit: Yes (3) Acute respiratory failure Status: Acute Assessment and plan: The patient's PCO2 has gradually gone up and is having a little more trouble breathing. He will continue BiPAP for now. Current Visit: Yes (4) Acute exacerbation of chronic obstructive pulmonary disease (COPD) Status: Acute Assessment and plan: Patient has significant COPD and is being treated for an exacerbation. He is still having trouble breathing and will adjust his medicines. Current Visit: Yes
[2016-11-24] MEDS: PANTOPRAZOLE 40 MG VIAL IV SCH (09:25)
[2016-11-24] MEDS: ATORVASTATIN 10 MG TABLET PO SCH (09:26)
[2016-11-24] MEDS: BUDESONIDE/FORMOTEROL 160-4.5 INHALER 6 GM INH SCH ×2 (09:28→20:26)
[2016-11-24] MEDS: FLUCONAZOLE INJ 200 MG in PREMIX 1 EACH IV SCH (09:30)
[2016-11-24] MEDS: AMINOPHYLLINE 1,000 MG in SODIUM CHLORIDE 0.9% 460 ML IV SCH (09:33)
--- NOTE | 2016-11-24 10:17 | Hospitalist Progress Note ---
Assessment and Plan (1) Acute respiratory failure Status: Acute Assessment and plan: Patient has a history of COPD and a bronchospastic disease.CXR done yesterday showed a small right sided pneumothorax and he currently has a chest tube placed. Microbiology. On 11/14/2016 the patient's sputum grew Zoë. Gram stain from 11/19/2016 shows less than 25 white blood cells per low power field. There are few gram-positive cocci and a few yeast. Microbiology 11/19/16- Sputum- no growth 11/21/2016 Chest tube still has small leak. Patient looks comfortable on the vent. He was awake. Dopplers- negative for DVT. 11/22/2016 Patient was reintubated yesterday because he was having problems with his ET. Chest tube to sunction still in place.CXR showed no significant change 11/23/2016 Doing well on the vent, may be extubated today.Chest tube is to gravity. He may be extubated today 11/24/2016 Patient was extubated yesterday but he had some trouble breathing overnight and ended up on a BIPAP. This am, he looked fairly comfortable but was still wheezing a little bit.His chest tube has been clamped.Sputum grew Zoë Albicans Plan continue IV Diflucan, antibiotics Follow Pulmonology and CT surgery's recommendations Current Visit: Yes (2) Acute exacerbation of chronic obstructive pulmonary disease (COPD) Status: Acute Assessment and plan: patient has severe lung disease. see treatment plan above Current Visit: Yes (3) Hypertension Status: Chronic Assessment and plan: poorly controlled. Increase Cardizem to 60mg q6hr,follow response. Current Visit: No Qualifiers: Hypertension type: essential hypertension Qualified Code(s): I10 - Essential (primary) hypertension (4) Dyslipidemia Status: Inactive Assessment and plan: Lipids-noted, continue with statins Current Visit: No (5) Hyperglycemia Status: Acute Assessment and plan: due to ? steroids. Plan blood sugar is controlled on SSC, we will continue.HA1c level-7.0 Current Visit: Yes Hospitalist: Subjective Interval history: Patient was extubated yesterday but he had some trouble breathing overnight and ended up on a BIPAP. This am, he looked fairly comforatble but was still wheezing a little bit.His chest tube has been clamped. Exam - Constitutional Vitals: Period Temp Pulse Resp BP Sys/Graf Pulse Ox Last 24 Hr 97.6 F-98.5 F 93-118 15-32 141-200/69-106 87-98 General appearance: mild distress, other (chest tube clamped) - Head Head exam: Present: normal inspection - Respiratory Respiratory exam: Present: rhonchi, wheezes - Cardiovascular Cardiovascular exam: Present: regular rate and rhythm - GI/Abdominal GI/Abdominal exam: Present: normal bowel sounds - Extremities Exam Extremities exam: Present: normal inspection - Neurological Exam Neurological exam: Present: alert, oriented X3 Results - Labs CBC & BMP: 11/24/16 04:02 11/24/16 04:02 Lab Results: I have reviewed the past 24 hour labs Quality Measures - VTE Deep Vein Thrombosis/Pulmonary Embolism Present on Admission: No
[2016-11-24] MEDS ORDERED: ALBUTEROL/IPRATROPIUM 3 ML NEB RESP TX PRN (11:00)
--- NOTE | 2016-11-24 11:37 | General Surgery Progress Note ---
Assessment and Plan (1) Pneumothorax, acute Status: Acute Assessment and plan: Impression: Pneumothorax right side Plan: Chest x-ray looks good. One appears well expanded. Minimal from that chest tube. However there is a very occasional air leak still present. We'll continue chest tube to suction and hopefully this will close with conservative management. Current Visit: Yes Subjective Narrative: Patient extubated. Appears comfortable. Exam - Constitutional Vitals: Period Temp Pulse Resp BP Sys/Graf Pulse Ox Last 24 Hr 97.6 F-98.5 F 93-118 16-32 141-200/69-106 87-98 General appearance: no acute distress - Head Head exam: Present: normocephalic - ENT Mouth exam: Present: normal external inspection - Neck Neck exam: Present: normal inspection - Respiratory Respiratory exam: Present: clear to auscultation bilaterally, other - Cardiovascular Cardiovascular exam: Present: RRR Results - Labs CBC & BMP: 11/24/16 04:02 11/24/16 04:02 Lab Results: I have reviewed the past 24 hour labs Quality Measures - VTE Deep Vein Thrombosis/Pulmonary Embolism Present on Admission: No
[2016-11-24] MEDS: SODIUM CHLORIDE 0.9% 1,000 ML IV SCH (18:19)
[2016-11-24] MEDS: ENOXAPARIN 40 MG/0.4 ML SYRINGE SUBCUT SCH (18:34)
[2016-11-24] MEDS: LEVOFLOXACIN INJ 750 MG in PREMIX 1 EACH IV SCH (18:35)
[2016-11-24 20:23] LABS: ABG Base Excess 8.2 MMOL/L (-2.5-2.5); ABG Oxygen Saturation 96.3 % (95-100); ABG PCO2 61.8 MM HG (35-48); ABG PH 7.375 (7.35-7.45); ABG TCO2 31.5 MMOL/L (23-27); Pt O2 Delivery Device BIPAP
--- NOTE | 2016-11-24 20:30 | XRay Report ---
History short of breath chest tube management Comparison earlier the same day Chest one view 11/24/2016 at 8:00 PM The heart is normal in size. Right chest tube is been retracted in the interval. No pneumothorax is identified. Multiple markings at the right apex grossly unchanged with suspected bullous changes and pleural thickening in the left apex There is been moderate improvement of prior parenchymal opacities in the left lung base Hyperlucency in the right upper lobe again seen Impression: 1. Interval retraction of right chest tube. No definite pneumothorax seen 2. Improvement of prior left basilar consolidation PROCEDURE INTERPRETED AT [facility] DEPARTMENT OF RADIOLOGY Final Report Signed by: Dr. Cierra Prakash
[2016-11-24] MEDS ORDERED: ETOMIDATE 20 MG/10 ML VIAL IV ONE ×2 (21:12→21:31)
[2016-11-24] MEDS ORDERED: SUCCINYLCHOLINE 200 MG/10 ML VIAL ONE (21:13)
[2016-11-24] MEDS ORDERED: SUCCINYLCHOLINE 200 MG/10 ML VIAL IV ONE (21:31)
--- NOTE | 2016-11-24 21:38 | Event Note ---
Patient's nurse called me sebastián. She was concerned that he was getting real short of breath tachypneic while on BiPAP. She told me that he had recently been extubated from the vent yesterday. I want to go check on the patient and ask him was he tiring out. He said he was. I opted to intubate the patient. 20 of etomidate and 100 of such were given to the patient he was intubated without issue. Chest x-ray was ordered. Informed the nursing staff to contact pulmonary for vent settings
[2016-11-24] MEDS: PROPOFOL 1,000 MG/100 ML BOTTLE IV SCH (21:46)
[2016-11-24 21:51] LABS: ABG HCO3 31.8 MMOL/L (20-26); ABG Oxygen Saturation 99.5 % (95-100); ABG PCO2 60.4 MM HG (35-48); ABG PH 7.379 (7.35-7.45); ABG TCO2 31.1 MMOL/L (23-27); Pt O2 Delivery Device Ventilator
--- NOTE | 2016-11-24 22:00 | XRay Report ---
Portable chest. Indication: Intubation. Respiratory distress. Comparison: November 24, 2016 at 7:55 PM. The heart is normal in size. The lung blum are hyperexpanded. Significant bullous disease is suggested in the right upper lung field. There is worsening atelectasis at the left lung base. Interstitial fibrosis is noted. Suspected small amount of pneumothorax remaining at the right lung apex. An endotracheal tube has been placed. Its distal tip is at T5-T6, 2.3 cm above the taylor. A chest tube is unchanged in position. Impression: Satisfactory endotracheal tube placement. Worsening atelectasis at the left lung base. PROCEDURE INTERPRETED AT [facility] DEPARTMENT OF RADIOLOGY Final Report Signed by: Dr. Yenny Prakash
[2016-11-25] MEDS: DILTIAZEM 30 MG TABLET PO SCH ×5 (00:52→20:04)
[2016-11-25] MEDS: PIPERACILLIN/TAZOBACTAM 3,375 MG in SODIUM CHLORIDE 0.9% 100 ML IV SCH ×3 (00:53→17:12)
[2016-11-25] MEDS: methylPREDNISolone SOD SUC 125 MG/2 ML VIAL IV SCH ×3 (00:53→17:10)
[2016-11-25] MEDS: ALBUTEROL/IPRATROPIUM 3 ML NEB RESP TX SCH ×6 (02:12→23:12)
[2016-11-25] MEDS: PROPOFOL 1,000 MG/100 ML BOTTLE IV SCH ×2 (03:27→22:00)
[2016-11-25 04:36] LABS: ABG Base Excess 11.1 MMOL/L (-2.5-2.5); ABG HCO3 36.1 MMOL/L (20-26); ABG Oxygen Saturation 99.1 % (95-100); ABG PCO2 49.1 MM HG (35-48); ABG PH 7.484 (7.35-7.45); ABG PO2 218.3 MM HG (80-95); ABG TCO2 37.6 MMOL/L (23-27); Allen Test Positive; Pt O2 Delivery Device Ventilator
[2016-11-25 05:50] LABS: Calcium 8.1 MG/DL (8.5-10.1); Potassium 4.6 MMOL/L (3.5-5.1)
[2016-11-25 07:22] LABS: Hematocrit 35.7 VOL% (42.0-52.0); Hemoglobin 11.1 GM/DL (14.0-18.0); Immature Granulocytes % 1.5 %; Immature Granulocytes Absolute 0.17 #; Lymphocytes # 0.2 10*3/uL (1.4-4.0); Lymphocytes % 1.7 % (21.2-54.2); Mean Corpuscular HGB Conc 31.1 GM/DL (32-36); Mean Corpuscular Hemoglobin 26 PG (27-34); Mean Corpuscular Volume 83.2 FL (87-102); Mean Platelet Volume 9.5 FL (9.6-12.0); Monocytes # 0.3 10*3/uL (0.11-0.8); Monocytes % 2.5 % (1.7-12.7); NRBC # 0.02 10*3/uL; Neutrophils # 10.4 10*3/uL (1.4-7.4); Neutrophils % 94.3 % (38.7-73.9); Platelet Count 221 T/CUMM (130-400); Red Blood Count 4.29 MC/CUMM (3.8-5.5); Red Cell Distribution Width 15.1 % (9.3-17.3)
--- NOTE | 2016-11-25 07:24 | XRay Report ---
XR chest 1V portable Indication: Shortness of breath. Chest one view: Since yesterday, mid right chest tube, endotracheal tube, bullous emphysema right upper lobe and coarse interstitial markings of the left lung are stable. Increasing obscuration of the right hemidiaphragm now present. There is now an NG tube is well. Heart size remains normal. Impression: NG tube now present. Worsening infiltrate or atelectasis right lung base. PROCEDURE INTERPRETED AT [facility] DEPARTMENT OF RADIOLOGY Final Report Signed by: Ben Taylor M.D.
[2016-11-25 07:41] LABS: Lymphocytes 4 % (20-55); Nucleated Red Blood Cells 1 (0-5); Platelet Estimate Normal; Segmented Neutrophils 93 % (50-85); Total Cells Counted 100
[2016-11-25 07:42] LABS: Hypochromasia 1+; Microcytosis 1+
--- NOTE | 2016-11-25 07:55 | Pulmonology Progress Note ---
Pulmonary - PN: Subj Interval history: Patient is a 66-year-old black man with a long history of COPD along with hypertension and hyperlipidemia. He apparently was in the hospital recently with an exacerbation of his COPD. He went home and did not get any better and came back with more shortness of breath. He was found to have a small right spontaneous pneumothorax. He was on the ventilator for several days and extubated. He did get more short of breath and was on BiPAP for a while. Last night he apparently fatigue and was intubated. His back on the ventilator and looks reasonably comfortable. He does have very severe disease. Exam (Progress Note) - Constitutional Vitals: Period Temp Pulse Resp BP Sys/Graf Pulse Ox Last 24 Hr 96.3 F-98.4 F 102-134 14-34 78-212/54-112 88-100 Exam: General appearance: no acute distress, under weight, other (Patient is awake and responding on the ventilator.) - Head Head exam: Present: normal inspection, normocephalic - Eye Eye exam: Present: EOMI. Absent: scleral icterus Pupils: Present: RAHEEL - ENT ENT exam: Present: The ET tube is in good position. - Neck Neck exam: Present: normal inspection. Absent: lymphadenopathy, thyromegaly - Respiratory Respiratory exam: Present: He has very distant breath sounds throughout with bilateral rhonchi. - Cardiovascular Cardiovascular exam: Present: regular rate and rhythm. Absent: gallop, systolic murmur - GI/Abdominal GI/Abdominal exam: Present: normal bowel sounds, soft. Absent: distended, organomegaly, tenderness - Extremities Exam Extremities exam: Absent: calf tenderness, edema - Neurological Exam Neurological exam: Present: alert, he can move his extremities okay. - Skin Skin exam: Present: warm, dry Results - Labs CBC & BMP: 11/25/16 07:12 11/25/16 03:40 Labs: His PO2 is 218 with a PCO2 of 49 and a pH of 7.48 - Diagnostic Findings Procedure: Chest x-ray: image reviewed by me, report reviewed by me (Chest x- ray shows severe COPD changes with increased markings in the bases.) Assessment and Plan (1) Hypertension Status: Chronic Assessment and plan: He has a lower blood pressure now. Current Visit: No Qualifiers: Hypertension type: essential hypertension Qualified Code(s): I10 - Essential (primary) hypertension (2) Pneumothorax, acute Status: Acute Assessment and plan: His right lung is expanded and there is no pneumothorax now. I do not see an air leak. His chest x-ray is stable. Current Visit: Yes (3) Acute respiratory failure Status: Acute Assessment and plan: The patient developed worsening shortness of breath during the night and had to be intubated. He does have very severe COPD . Current Visit: Yes (4) Acute exacerbation of chronic obstructive pulmonary disease (COPD) Status: Acute Assessment and plan: Patient has significant COPD and is being treated with steroids and bronchodilator therapy. We will continue ventilatory support for now. Current Visit: Yes
[2016-11-25] MEDS: ATORVASTATIN 10 MG TABLET PO SCH ×2 (09:00→09:14)
[2016-11-25] MEDS: MIDAZOLAM 100 MG in SODIUM CHLORIDE 0.9% 80 ML IV SCH (09:07)
[2016-11-25] MEDS: PANTOPRAZOLE 40 MG VIAL IV SCH (09:09)
[2016-11-25] MEDS: FLUCONAZOLE INJ 200 MG in PREMIX 1 EACH IV SCH (09:14)
[2016-11-25] MEDS: BUDESONIDE/FORMOTEROL 160-4.5 INHALER 6 GM INH SCH (09:24)
--- NOTE | 2016-11-25 10:07 | General Surgery Progress Note ---
Assessment and Plan (1) Pneumothorax, acute Status: Acute Assessment and plan: Impression: Pneumothorax right side Plan: No obvious pneumothorax seen on today's chest x-ray. Small air leak present. He is now reintubated. We will continue chest tube to suction today. It appears he has a worsening infiltrate in the right lower lung or worsening atelectasis. Current Visit: Yes Subjective Narrative: Patient was reintubated last night.. The chest tube was placed back to suction. There was a small pneumothorax on chest x-ray from last night. Exam - Constitutional Vitals: Period Temp Pulse Resp BP Sys/Graf Pulse Ox Last 24 Hr 96.3 F-98.4 F 102-134 14-34 78-212/54-112 88-100 - Respiratory Respiratory exam: Present: other (chest tube in place. A small air leak. No drainage. ) Results - Labs CBC & BMP: 11/25/16 07:12 11/25/16 03:40 Quality Measures - VTE Deep Vein Thrombosis/Pulmonary Embolism Present on Admission: No
[2016-11-25] MEDS ORDERED: FUROSEMIDE 40 MG/4 ML VIAL IV ONE (10:30)
--- NOTE | 2016-11-25 11:31 | XRay Report ---
XR chest 1V portable Indication: NG tube placement. Chest one view: Compromise view of the chest and abdomen shows an NG tube extending well into the stomach, tip directed towards the gastric antrum. Impression: NG tube position as described. PROCEDURE INTERPRETED AT [facility] DEPARTMENT OF RADIOLOGY Final Report Signed by: Ben Taylor M.D.
[2016-11-25] MEDS: SODIUM CHLORIDE 0.9% 1,000 ML IV SCH (12:21)
--- NOTE | 2016-11-25 13:31 | Hospitalist Progress Note ---
Assessment and Plan (1) Acute respiratory failure Status: Acute Assessment and plan: Patient has a history of COPD and a bronchospastic disease.CXR done yesterday showed a small right sided pneumothorax and he currently has a chest tube placed. Microbiology. On 11/14/2016 the patient's sputum grew Zoë. Gram stain from 11/19/2016 shows less than 25 white blood cells per low power field. There are few gram-positive cocci and a few yeast. Microbiology 11/19/16- Sputum- no growth 11/21/2016 Chest tube still has small leak. Patient looks comfortable on the vent. He was awake. Dopplers- negative for DVT. 11/22/2016 Patient was re intubated yesterday because he was having problems with his ET. Chest tube to sunction still in place.CXR showed no significant change 11/23/2016 Doing well on the vent, may be extubated today.Chest tube is to gravity. He may be extubated today 11/24/2016 Patient was extubated yesterday but he had some trouble breathing overnight and ended up on a BIPAP. This am, he looked fairly comfortable but was still wheezing a little bit.His chest tube has been clamped.Sputum grew Zoë Albicans 11/25/2016 Patient was re-intubated at overnight due to laboured breathing and hypoxia. .His chest tube was back to suction. No obvious pneumothorax seen on today's chest x-ray. Small air leak present. CXR showed worsening infiltrate or atelectasis. Plan continue IV Diflucan, antibiotics, vent support, chest tube insertion continue Pulmonology and CT surgery's recommendations Current Visit: Yes (2) Acute exacerbation of chronic obstructive pulmonary disease (COPD) Status: Acute Assessment and plan: patient has severe lung disease. see treatment plan above Current Visit: Yes (3) Hypertension Status: Chronic Assessment and plan: appears to be trending downwards again, maybe because he is back on sedation, he has just been re-intubated. Will decrease Cardizem to 30mg q6hr,follow response. Current Visit: No Qualifiers: Hypertension type: essential hypertension Qualified Code(s): I10 - Essential (primary) hypertension (4) Dyslipidemia Status: Inactive Assessment and plan: Lipids-noted, continue with statins Current Visit: No (5) Hyperglycemia Status: Acute Assessment and plan: due to ? steroids. Plan blood sugar is controlled on SSC, we will continue.HA1c level-7.0 Current Visit: Yes Hospitalist: Subjective Interval history: Patient was re-intubated at overnight due to laboured breathing and hypoxia. This am, he looked comfortable on the vent, awake..His chest tube was back to suction. No obvious pneumothorax seen on today's chest x-ray. Small air leak present. CXR showed worsening infiltrate or atelectasis. Exam - Constitutional Vitals: Period Temp Pulse Resp BP Sys/Graf Pulse Ox Last 24 Hr 96.3 F-98.2 F 102-134 14-34 78-191/54-112 88-100 General appearance: no acute distress, other (intubated and sedated) - Head Head exam: Present: normal inspection - Respiratory Respiratory exam: Present: clear to auscultation bilaterally - Cardiovascular Cardiovascular exam: Present: regular rate and rhythm - GI/Abdominal GI/Abdominal exam: Present: normal bowel sounds - Extremities Exam Extremities exam: Present: normal inspection Results - Labs CBC & BMP: 11/25/16 07:12 11/25/16 03:40 Lab Results: I have reviewed the past 24 hour labs Quality Measures - VTE Deep Vein Thrombosis/Pulmonary Embolism Present on Admission: No
[2016-11-25] MEDS: AMINOPHYLLINE 1,000 MG in SODIUM CHLORIDE 0.9% 460 ML IV SCH (13:47)
[2016-11-25] MEDS: NOREPINEPHRINE 8 MG in SODIUM CHLORIDE 0.9% 242 ML IV SCH (15:38)
[2016-11-25] MEDS ORDERED: NOREPINEPHRINE 4 MG/4 ML VIAL IV ONE (15:39)
[2016-11-25] MEDS: LEVOFLOXACIN INJ 750 MG in PREMIX 1 EACH IV SCH (17:11)
[2016-11-25] MEDS: ENOXAPARIN 40 MG/0.4 ML SYRINGE SUBCUT SCH (17:11)
[2016-11-26] MEDS: PIPERACILLIN/TAZOBACTAM 3,375 MG in SODIUM CHLORIDE 0.9% 100 ML IV SCH ×3 (00:08→16:04)
[2016-11-26] MEDS: methylPREDNISolone SOD SUC 125 MG/2 ML VIAL IV SCH ×3 (00:08→16:01)
[2016-11-26] MEDS: MIDAZOLAM 100 MG in SODIUM CHLORIDE 0.9% 80 ML IV SCH ×3 (00:52→20:05)
[2016-11-26] MEDS: DILTIAZEM 30 MG TABLET PO SCH ×4 (01:53→19:18)
[2016-11-26] MEDS: ALBUTEROL/IPRATROPIUM 3 ML NEB RESP TX SCH ×6 (02:29→23:58)
[2016-11-26 03:23] LABS: ABG Base Excess 10.2 MMOL/L (-2.5-2.5); ABG HCO3 33.9 MMOL/L (20-26); ABG Oxygen Saturation 98.6 % (95-100); ABG PCO2 45.1 MM HG (35-48); ABG PH 7.496 (7.35-7.45); ABG TCO2 30.7 MMOL/L (23-27); Allen Test Positive; Pt O2 Delivery Device Ventilator
[2016-11-26 04:58] LABS: Basophils % 0.1 % (0.0-0.8); Hematocrit 35.7 VOL% (42.0-52.0); Immature Granulocytes % 1.1 %; Immature Granulocytes Absolute 0.12 #; Lymphocytes # 0.1 10*3/uL (1.4-4.0); Lymphocytes % 1.2 % (21.2-54.2); Mean Corpuscular HGB Conc 30.8 GM/DL (32-36); Mean Corpuscular Hemoglobin 26 PG (27-34); Mean Corpuscular Volume 83.6 FL (87-102); Mean Platelet Volume 9.8 FL (9.6-12.0); Monocytes # 0.2 10*3/uL (0.11-0.8); Monocytes % 1.6 % (1.7-12.7); Neutrophils # 10.8 10*3/uL (1.4-7.4); Platelet Count 206 T/CUMM (130-400); Red Blood Count 4.27 MC/CUMM (3.8-5.5); Red Cell Distribution Width 14.9 % (9.3-17.3); White Blood Count 11.2 T/CUMM (4-12)
[2016-11-26 05:25] LABS: Calcium 7.9 MG/DL (8.5-10.1); Osmolality,Calculated 296.7 MOS/KG (273-304); Potassium 3.4 MMOL/L (3.5-5.1)
[2016-11-26] MEDS: SODIUM CHLORIDE 0.9% 1,000 ML IV SCH (06:46)
[2016-11-26 06:47] LABS: Segmented Neutrophils 99 % (50-85)
[2016-11-26 06:48] LABS: Platelet Estimate Normal; Total Cells Counted 100
--- NOTE | 2016-11-26 07:34 | XRay Report ---
Exam: XR chest 1V portable Date: 11/26/2016 4:00 AM Indication: Follow-up ventilator Comparison: 11/25/2016 Technical: AP portable Findings: Endotracheal tube is present at the aortic knob. Nasogastric tube is in place. A right-sided. A right-sided thoracotomy tube is present. Low volume effusions are present. ASVD is present. No obvious pneumothorax. Impression: 1. Stable appearance of the endotracheal tube nasogastric tube and right-sided thoracotomy tube without obvious pneumothorax 2. Low volume effusions bilaterally. PROCEDURE INTERPRETED AT [facility] DEPARTMENT OF RADIOLOGY Final Report Signed by: Dr. Blue Lane
--- NOTE | 2016-11-26 08:46 | Pulmonology Progress Note ---
Pulmonary - PN: Subj Interval history: Patient is a 66-year-old black man with a long history of COPD along with hypertension and hyperlipidemia. He apparently was in the hospital recently with an exacerbation of his COPD. He went home and did not get any better and came back with more shortness of breath. He was found to have a small right spontaneous pneumothorax. He was on the ventilator for several days and extubated. He did get more short of breath and was on BiPAP for a while. He continues to fatigue and is back on the ventilator now. He diuresed fairly well and he does seem more alert today. He is trying to do CPAP trials. His oxygenation is better. Exam (Progress Note) - Constitutional Vitals: Period Temp Pulse Resp BP Sys/Graf Pulse Ox Last 24 Hr 97 F-97.3 F 84-123 12-24 77-160/54-91 94-100 Exam: General appearance: no acute distress, under weight, other (Patient is awake and responding on the ventilator.) - Head Head exam: Present: normal inspection, normocephalic - Eye Eye exam: Present: EOMI. Absent: scleral icterus Pupils: Present: RAHEEL - ENT ENT exam: Present: The ET tube is in good position. - Neck Neck exam: Present: normal inspection. Absent: lymphadenopathy, thyromegaly - Respiratory Respiratory exam: Present: He has very distant breath sounds throughout with bilateral rhonchi. His lungs sound better today. - Cardiovascular Cardiovascular exam: Present: regular rate and rhythm. Absent: gallop, systolic murmur - GI/Abdominal GI/Abdominal exam: Present: normal bowel sounds, soft. Absent: distended, organomegaly, tenderness - Extremities Exam Extremities exam: Absent: calf tenderness, edema - Neurological Exam Neurological exam: Present: alert, he can move his extremities okay. - Skin Skin exam: Present: warm, dry Results - Labs CBC & BMP: 11/26/16 04:23 11/26/16 04:23 Labs: His PO2 is 132 with a PCO2 of 45 and a pH of 7.49 - Diagnostic Findings Procedure: Chest x-ray: image reviewed by me, report reviewed by me (Chest x- ray shows severe COPD changes and the infiltrates are better) Assessment and Plan (1) Hypertension Status: Chronic Assessment and plan: He has a stable blood pressure now. Current Visit: No Qualifiers: Hypertension type: essential hypertension Qualified Code(s): I10 - Essential (primary) hypertension (2) Pneumothorax, acute Status: Acute Assessment and plan: His right lung is expanded and there is no pneumothorax now. I do not see an air leak. His chest x-ray is stable. Current Visit: Yes (3) Acute respiratory failure Status: Acute Assessment and plan: The patient developed worsening shortness of breath during the night and had to be intubated. He did diurese fairly well. His oxygenation is better now. He will continue with weaning trials. Current Visit: Yes (4) Acute exacerbation of chronic obstructive pulmonary disease (COPD) Status: Acute Assessment and plan: Patient has significant COPD and is being treated with steroids and bronchodilator therapy. We will continue ventilatory support for now. Current Visit: Yes
[2016-11-26] MEDS: PANTOPRAZOLE 40 MG VIAL IV SCH (09:30)
[2016-11-26] MEDS: FLUCONAZOLE INJ 200 MG in PREMIX 1 EACH IV SCH (09:32)
[2016-11-26] MEDS: ATORVASTATIN 10 MG TABLET PO SCH (09:33)
[2016-11-26] MEDS: AMINOPHYLLINE 1,000 MG in SODIUM CHLORIDE 0.9% 460 ML IV SCH (09:35)
[2016-11-26] MEDS: BUDESONIDE/FORMOTEROL 160-4.5 INHALER 6 GM INH SCH (09:36)
--- NOTE | 2016-11-26 10:11 | Hospitalist Progress Note ---
Assessment and Plan (1) Acute respiratory failure Status: Acute Assessment and plan: Patient has a history of COPD and a bronchospastic disease.CXR done yesterday showed a small right sided pneumothorax and he currently has a chest tube placed. Microbiology. On 11/14/2016 the patient's sputum grew Zoë. Gram stain from 11/19/2016 shows less than 25 white blood cells per low power field. There are few gram-positive cocci and a few yeast. Microbiology 11/19/16- Sputum- no growth 11/21/2016 Chest tube still has small leak. Patient looks comfortable on the vent. He was awake. Dopplers- negative for DVT. 11/22/2016 Patient was re intubated yesterday because he was having problems with his ET. Chest tube to sunction still in place.CXR showed no significant change 11/23/2016 Doing well on the vent, may be extubated today.Chest tube is to gravity. He may be extubated today 11/24/2016 Patient was extubated yesterday but he had some trouble breathing overnight and ended up on a BIPAP. This am, he looked fairly comfortable but was still wheezing a little bit.His chest tube has been clamped.Sputum grew Zoë Albicans 11/25/2016 Patient was re-intubated at overnight due to laboured breathing and hypoxia. .His chest tube was back to suction. No obvious pneumothorax seen on today's chest x-ray. Small air leak present. CXR showed worsening infiltrate or atelectasis. 11/26/2016 Patient looks comfortable on the vent, he was awake and had his chest tube to suction. Plan continue IV Diflucan, antibiotics, vent support, chest tube continue Pulmonology and CT surgery's recommendations Current Visit: Yes (2) Acute exacerbation of chronic obstructive pulmonary disease (COPD) Status: Acute Assessment and plan: patient has severe lung disease. see treatment plan above Current Visit: Yes (3) Hypertension Status: Chronic Assessment and plan: stable on current regime Current Visit: No Qualifiers: Hypertension type: essential hypertension Qualified Code(s): I10 - Essential (primary) hypertension (4) Dyslipidemia Status: Inactive Assessment and plan: Lipids-noted, continue with statins Current Visit: No (5) Hyperglycemia Status: Acute Assessment and plan: due to ? steroids. Plan blood sugar is controlled on SSC, we will continue.HA1c level-7.0 Current Visit: Yes (6) Hypokalemia Status: Acute Assessment and plan: continue to replete,bmp in am Current Visit: Yes Hospitalist: Subjective Interval history: Patient seen this am on the vent, awake, appears comfortable. He got a dose of Lasix yesterday and he pulled out a lot urine.He still has his chest tube to suction in place. Exam - Constitutional Vitals: Period Temp Pulse Resp BP Sys/Graf Pulse Ox Last 24 Hr 97 F-97.3 F 84-123 12-24 77-160/54-91 94-100 General appearance: no acute distress, other (awake but intubated, chest tube to suction in place) - Head Head exam: Present: normal inspection - Respiratory Respiratory exam: Present: clear to auscultation bilaterally - Cardiovascular Cardiovascular exam: Present: regular rate and rhythm - GI/Abdominal GI/Abdominal exam: Present: normal bowel sounds - Extremities Exam Extremities exam: Present: normal inspection Results - Labs CBC & BMP: 11/26/16 04:23 11/26/16 04:23 Lab Results: I have reviewed the past 24 hour labs Quality Measures - VTE Deep Vein Thrombosis/Pulmonary Embolism Present on Admission: No
[2016-11-26] MEDS ORDERED: POTASSIUM CHLORIDE 20 MEQ TABLET PO ONE (10:28)
--- NOTE | 2016-11-26 11:36 | General Surgery Progress Note ---
Assessment and Plan (1) Pneumothorax, acute Status: Acute Assessment and plan: Impression: Pneumothorax right side Plan: No pneumothorax on chest x-ray. Air leak not seen today. We'll place him on waterseal. Continue chest tube until he is extubated. Current Visit: Yes Subjective Narrative: Remains intubated Exam - Constitutional Vitals: Period Temp Pulse Resp BP Sys/Graf Pulse Ox Last 24 Hr 97 F-97.3 F 84-123 12-24 77-160/54-91 94-100 - Respiratory Respiratory exam: Present: clear to auscultation bilaterally, other (chest tube with minimal output. No air leak seen.) - Cardiovascular Cardiovascular exam: Present: RRR Results - Labs CBC & BMP: 11/26/16 04:23 11/26/16 04:23 Lab Results: I have reviewed the past 24 hour labs Quality Measures - VTE Deep Vein Thrombosis/Pulmonary Embolism Present on Admission: No
[2016-11-26] MEDS: NOREPINEPHRINE 8 MG in SODIUM CHLORIDE 0.9% 242 ML IV SCH (16:00)
[2016-11-26] MEDS: ENOXAPARIN 40 MG/0.4 ML SYRINGE SUBCUT SCH (16:01)
[2016-11-26] MEDS: LEVOFLOXACIN INJ 750 MG in PREMIX 1 EACH IV SCH (16:01)
[2016-11-26] MEDS: PROPOFOL 1,000 MG/100 ML BOTTLE IV SCH (21:03)
[2016-11-27] MEDS: methylPREDNISolone SOD SUC 125 MG/2 ML VIAL IV SCH ×3 (01:05→16:00)
[2016-11-27] MEDS: PIPERACILLIN/TAZOBACTAM 3,375 MG in SODIUM CHLORIDE 0.9% 100 ML IV SCH ×3 (01:14→16:15)
[2016-11-27] MEDS: DILTIAZEM 30 MG TABLET PO SCH ×5 (01:15→20:33)
[2016-11-27] MEDS: ALBUTEROL/IPRATROPIUM 3 ML NEB RESP TX SCH ×6 (03:35→23:38)
[2016-11-27 03:50] LABS: Allen Test Positive; Pt O2 Delivery Device Ventilator
[2016-11-27 03:51] LABS: ABG Base Excess 9.3 MMOL/L (-2.5-2.5); ABG Oxygen Saturation 93.6 % (95-100); ABG PCO2 49.3 MM HG (35-48); ABG PH 7.457 (7.35-7.45); ABG PO2 68.6 MM HG (80-95); ABG TCO2 30.8 MMOL/L (23-27)
[2016-11-27] MEDS: SODIUM CHLORIDE 0.9% 1,000 ML IV SCH ×2 (04:17→22:30)
[2016-11-27 05:02] LABS: Hematocrit 34.8 VOL% (42.0-52.0); Hemoglobin 10.9 GM/DL (14.0-18.0); Immature Granulocytes % 0.6 %; Immature Granulocytes Absolute 0.08 #; Lymphocytes # 0.1 10*3/uL (1.4-4.0); Lymphocytes % 0.7 % (21.2-54.2); Mean Corpuscular HGB Conc 31.3 GM/DL (32-36); Mean Corpuscular Hemoglobin 26 PG (27-34); Mean Corpuscular Volume 82.3 FL (87-102); Mean Platelet Volume 9.8 FL (9.6-12.0); Monocytes # 0.3 10*3/uL (0.11-0.8); Monocytes % 2.2 % (1.7-12.7); Neutrophils # 12.7 10*3/uL (1.4-7.4); Neutrophils % 96.5 % (38.7-73.9); Platelet Count 184 T/CUMM (130-400); Red Blood Count 4.23 MC/CUMM (3.8-5.5); White Blood Count 13.1 T/CUMM (4-12)
[2016-11-27 05:28] LABS: Calcium 8.1 MG/DL (8.5-10.1)
[2016-11-27 05:29] LABS: Osmolality,Calculated 301.8 MOS/KG (273-304); Potassium 3.7 MMOL/L (3.5-5.1)
[2016-11-27 06:10] LABS: Lymphocytes 5 % (20-55); Myelocytes 1 %; Platelet Estimate Normal; Promyelocytes 1 %; Segmented Neutrophils 92 % (50-85); Total Cells Counted 100
--- NOTE | 2016-11-27 08:02 | Pulmonology Progress Note ---
Pulmonary - PN: Subj Interval history: Patient is a 66-year-old black man with a long history of COPD along with hypertension and hyperlipidemia. He apparently was in the hospital recently with an exacerbation of his COPD. He went home and did not get any better and came back with more shortness of breath. He was found to have a small right spontaneous pneumothorax. He was on the ventilator for several days and extubated. He did get more short of breath and was on BiPAP for a while. He continues to fatigue and is back on the ventilator now. He diuresed fairly well and he does seem more alert today. He had a fairly reasonable day and is doing CPAP a little better. His chest x-ray looks about the same. Overall he is reasonably stable at present. Exam (Progress Note) - Constitutional Vitals: Period Temp Pulse Resp BP Sys/Graf Pulse Ox Last 24 Hr 97.1 F-98 F 94-127 14-25 104-151/56-86 92-100 Exam: General appearance: no acute distress, under weight, other (Patient is awake and responding on the ventilator.) - Head Head exam: Present: normal inspection, normocephalic - Eye Eye exam: Present: EOMI. Absent: scleral icterus Pupils: Present: RAHEEL - ENT ENT exam: Present: The ET tube is in good position. - Neck Neck exam: Present: normal inspection. Absent: lymphadenopathy, thyromegaly - Respiratory Respiratory exam: Present: He has very distant breath sounds throughout with bilateral rhonchi. He is moving air okay. He does not have much wheeze. - Cardiovascular Cardiovascular exam: Present: regular rate and rhythm. Absent: gallop, systolic murmur - GI/Abdominal GI/Abdominal exam: Present: normal bowel sounds, soft. Absent: distended, organomegaly, tenderness - Extremities Exam Extremities exam: Absent: calf tenderness, edema - Neurological Exam Neurological exam: Present: alert, he can move his extremities okay. - Skin Skin exam: Present: warm, dry Results - Labs CBC & BMP: 11/27/16 04:20 11/27/16 04:20 Labs: His PO2 68 with a PCO2 of 49 pH of 7.45 - Diagnostic Findings Procedure: Chest x-ray: image reviewed by me, report reviewed by me (Chest x- ray shows severe COPD changes with mild bibasilar infiltrates.) Assessment and Plan (1) Hypertension Status: Chronic Assessment and plan: He has a stable blood pressure now. Current Visit: No Qualifiers: Hypertension type: essential hypertension Qualified Code(s): I10 - Essential (primary) hypertension (2) Pneumothorax, acute Status: Acute Assessment and plan: His right lung is expanded and there is no pneumothorax now. I do not see an air leak. His chest x-ray is stable. Current Visit: Yes (3) Acute respiratory failure Status: Acute Assessment and plan: The patient has severe COPD with respiratory failure. He is stable and doing CPAP better. He will still have a difficult time with his breathing in the future. We will continue present therapy for now. Current Visit: Yes (4) Acute exacerbation of chronic obstructive pulmonary disease (COPD) Status: Acute Assessment and plan: Patient has significant COPD and is being treated with steroids and bronchodilator therapy. We will continue ventilatory support for now. Current Visit: Yes
[2016-11-27] MEDS: ATORVASTATIN 10 MG TABLET PO SCH (08:23)
[2016-11-27] MEDS: AMINOPHYLLINE 1,000 MG in SODIUM CHLORIDE 0.9% 460 ML IV SCH (08:23)
[2016-11-27] MEDS: PANTOPRAZOLE 40 MG VIAL IV SCH (08:23)
[2016-11-27] MEDS: FLUCONAZOLE INJ 200 MG in PREMIX 1 EACH IV SCH (08:30)
--- NOTE | 2016-11-27 08:59 | XRay Report ---
Exam: XR chest 1V portable Date: 11/27/2016 4:00 AM Indication: Follow-up ventilator, thoracotomy tube Comparison: 11/26/2016 Technical: AP portable Findings: Endotracheal tube nasogastric tube and right-sided thoracotomy tube are unchanged. Component of COPD with hyperinflation and low volume effusions and atelectatic change present in the lung blum bilaterally. Some apical pleural thickening is present bilaterally. ASVD is present. Mediastinum is intact. External cardiac leads are noted. Impression: 1. Stable position of life-support tubing 2. COPD with hyperinflation with persistent atelectatic change and effusions bases bilaterally PROCEDURE INTERPRETED AT [facility] DEPARTMENT OF RADIOLOGY Final Report Signed by: Dr. Blue Lane
[2016-11-27 09:22] LABS: Troponin I Only 0.024 NG/ML (0.00-0.045)
--- NOTE | 2016-11-27 09:48 | General Surgery Progress Note ---
Assessment and Plan (1) Pneumothorax, acute Status: Acute Assessment and plan: Impression: Pneumothorax right side Plan: Continue chest tube to waterseal Current Visit: Yes Subjective Narrative: Remains intubated. Exam - Constitutional Vitals: Period Temp Pulse Resp BP Sys/Graf Pulse Ox Last 24 Hr 97.1 F-98 F 94-127 14-25 104-151/56-86 92-100 General appearance: no acute distress - Head Head exam: Present: normocephalic - Neck Neck exam: Present: normal inspection - Respiratory Respiratory exam: Present: clear to auscultation bilaterally, other (chest tube with minimal output and no air leak is seen) - Cardiovascular Cardiovascular exam: Present: RRR - GI/Abdominal GI/Abdominal exam: Present: soft Results - Labs CBC & BMP: 11/27/16 04:20 11/27/16 04:20 Lab Results: I have reviewed the past 24 hour labs Quality Measures - VTE Deep Vein Thrombosis/Pulmonary Embolism Present on Admission: No
--- NOTE | 2016-11-27 11:09 | EKG Report ---
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
--- NOTE | 2016-11-27 12:08 | ECHO Report ---
[facility] Exam Date: 11/27/2016 09:21 Referring Physician: Technologist: Anna Maddox Age: 66 Ht (in): 68 Wt (lb): 149 Gender: M Exam Location: [facility] Echo Indications: COPD, pneumothorax, resp. failure, hyperglycemia, hypokalemia, HTN, chest pain BP: 137 / 80 HR: 110 Rhythm: sinus tachycardia Technical Quality: Technically difficult study IMPRESSIONS Overall normal LV systolic function, ejection fraction 60-65%. Grade 1/4 diastolic dysfunction. Mild concentric left ventricular hypertrophy. Trace mitral and tricuspid regurgitation. Pulmonary hypertension with pulmonary artery pressure estimated at 49 mmHg plus right atrial pressure. MEASUREMENTS (Male / Female) Normal Values 2D ECHO LV Diastolic Diameter PLAX 3.2 cm 4.2 - 5.9 / 3.9 - 5.3 cm LV Systolic Diameter PLAX 2.3 cm LV Fractional Shortening PLAX 27.6 % IVS Diastolic Thickness 1.3 cm 0.6 - 1.0 / 0.6 - 0.9 cm LVPW Diastolic Thickness 1.4 cm 0.6 - 1.0 / 0.6 - 0.9 cm RV Internal Dim ED PLAX 2.1 cm Aortic Root Diameter 2.3 cm LA Systolic Diameter LX 2.6 cm 3.0 - 4.0 / 2.7 - 3.8 cm DOPPLER TR Peak Velocity 146.6 cm/s TR Peak Gradient 8.6 mmHg FINDINGS Left Ventricle Normal left ventricular cavity size. Mild concentric left ventricular hypertrophy with diastolic dysfunction. Left ventricular ejection fraction is estimated at 60-65%. Right Ventricle Normal right ventricular size. Right Atrium Normal right atrial size. Left Atrium Normal left atrial size. Mitral Valve Mild mitral valve sclerosis. Trace mitral valve regurgitation. Aortic Valve Mild aortic valve sclerosis without stenosis. Tricuspid Valve Morphologically normal tricuspid valve. Trace to mild tricuspid valve regurgitation. Pulmonic Valve Pulmonic valve not well visualized. Pericardium No pericardial effusion. Aorta Normal size aortic root and proximal ascending aorta. Thelma Barnes MD (Electronically Signed) Final Date: 27 November 2016 12:07
[2016-11-27] MEDS: MIDAZOLAM 100 MG in SODIUM CHLORIDE 0.9% 80 ML IV SCH ×2 (12:52→17:31)
[2016-11-27] MEDS: BUDESONIDE/FORMOTEROL 160-4.5 INHALER 6 GM INH SCH (12:52)
--- NOTE | 2016-11-27 12:52 | Cardiology Consult Note ---
Assessment and Plan (1) Supraventricular tachycardia Status: Acute Assessment and plan: This may be atrial fibrillation. It is likely exacerbated by his acute illness , as well as the medications he is receiving. Cardizem has been initiated and I 'm in agreement with this. He is currently not on therapeutic anticoagulation, but because these were few and brief episodes, for now we will just continue with prophylactic dosing. I have ordered an review the echocardiogram which overall is unremarkable. We will also order an ECG. Free T4 was normal upon admission. Current Visit: Yes (2) Hypertension Status: Chronic Current Visit: No Qualifiers: Hypertension type: essential hypertension Qualified Code(s): I10 - Essential (primary) hypertension (3) Pneumothorax, acute Status: Acute Current Visit: Yes (4) Acute exacerbation of chronic obstructive pulmonary disease (COPD) Status: Acute Assessment and plan: He is receiving treatment for this from pulmonary and the hospitalist service. Current Visit: Yes History of Present Illness - Data of Consult Patient: new to practice Consult date: 11/27/16 Requesting Physician: Sandra Garcia - Consult Narrative Reason for consult: None indicated History of present illness: The patient is intubated and unable to provide history. No family is present. 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 This history is obtained from chart review primarily. The patient was admitted 11/19/2016 after presenting with shortness of breath. He is reported as having a history of hypertension, hyperlipidemia, COPD. He recently was hospitalized for an exacerbation 11/16/2016. He returned to the hospital with worsening symptoms, required intubation and subsequently developed a pneumothorax which has been treated with a chest tube. There is no reason listed as an indication for consultation. There is no recent ECG in the chart, there is no recent echocardiogram, there are recent biomarkers which are negative. There are telemetry strips which revealed only normal sinus rhythm or sinus tachycardia. The patient is alert, has a difficult time communicating since he is intubated, he seems to deny chest pain although this is not really clear. The only thing he really wants to tell me is to turn the fan off of him. I spoke with nursing. They tell me the patient had a tachycardic episode in the evening time with a heart rate in the 140s, that this was brief. I have reviewed the patient's telemetry strips. He does have some self-limited paroxysms of a nonsustained supraventricular tachycardia. It is difficult to tell from the telemetry, this could represent brief paroxysms of atrial fibrillation. He has been receiving steroids, theophylline. There is no such history of arrhythmia reported in the chart. CC: Sandra Garcia MD - Home Medications and Allergies Home Medications: Home Medications Medication Instructions Recorded Confirmed Type Atorvastatin [Lipitor] 10 mg PO DAILY 05/07/16 11/19/16 History Cetirizine Tab [ZyrTEC Tab] 10 mg PO DAILY 05/07/16 11/19/16 History Diltiazem HCl [Diltiazem ER (24 360 mg PO DAILY 05/07/16 11/19/16 History hr)] Furosemide Tab [Lasix Tab] 40 mg PO DAILY 05/07/16 11/19/16 History Pantoprazole Tab [Protonix Tab] 40 mg PO DAILY 05/07/16 11/19/16 History Theophylline ER Tab (24 Hr) 400 mg PO DAILY 05/07/16 11/19/16 History Albuterol Sulfate [Ventolin HFA] 2 puff INH Q4H PRN 11/11/16 11/19/16 History Budesonide/Formoterol 160-4.5 2 puff INH BID 11/11/16 11/19/16 History [Symbicort 160-4.5] Roflumilast [Daliresp] 500 mcg PO DAILY 11/11/16 11/19/16 History Acetaminophen Tab [Tylenol Tab] 325 mg PO Q4H PRN #0 tablet 11/16/16 11/19/16 Rx Levofloxacin Tab [Levaquin Tab] 750 mg PO DAILY #7 tablet 11/16/16 11/19/16 Rx Magnesium Hydroxide Susp [Milk of 30 ml PO BID PRN #0 11/16/16 11/19/16 Rx Magnesia] Melatonin 3 mg PO BEDTIME PRN #0 tablet 11/16/16 11/19/16 Rx predniSONE [Prednisone] 20 mg PO DIRECTED 10 Days 11/16/16 11/19/16 Rx Allergies/Adverse Reactions: Allergies Allergy/AdvReac Type Severity Reaction Status Date / Time No Known Allergies Allergy Unverified 11/19/16 14:39 ROS unobtainable: due to endotracheal tube Medical,Surgical,& Family Hx - Medical History Cardio: History of: Hypertension HEENT: History of: Eye Problem (eye surgery) Endocrine: History of: Dyslipidemia Rheumatology: History of;: Gout Respiratory: History of: COPD - Family History Family History: Reports;: Family Cancer (mother, brother, aunt) - Social History Smoking Status: Unknown if ever smoked Frequency of Alcohol Use: None Type of Drug Use: Unknown Physical Examination Vital Signs Temp Pulse Resp BP Pulse Ox 98.6 F 92 H 30 H 211/90 89 L 11/19/16 14:35 11/19/16 14:35 11/19/16 14:35 11/19/16 14:35 11/19/16 14:35 Other: General appearance: normal weight, no acute distress, intubated, alert and interactive. - Head Head exam: Present: normocephalic, atraumatic,. Absent: hematoma, laceration - Eye Eye exam: Absent: conjunctival injection, nystagmus, periorbital swelling, scleral icterus, laceration to eyelids Pupils: Present: CLAUDIA. Absent: constricted, dilated, fixed, irregular, unequal - ENT ENT exam: Present: Endotracheal tube in place, normal external ear exam - Neck Neck exam: Present: normal inspection. Absent: lymphadenopathy, meningismus, tenderness, thyromegaly - Respiratory Respiratory exam: Present: clear to auscultation bilaterally anteriorly, there is normal rise with ventilated breaths. Absent: accessory muscle use, chest wall tenderness - Cardiovascular Cardiovascular exam: Present: regular rate and rhythm. Absent: carotid bruit, gallop, JVD, rubs - GI/Abdominal GI/Abdominal exam: Present: normal bowel sounds. Absent: distended, firm, guarding, hernia, mass, tenderness, rebound, soft - Extremities Exam Extremities exam: Present: normal inspection, normal capillary refill. Absent: calf tenderness, edema - Back Exam Back exam: Unable to assess due to patient being on the ventilator - Neurological Exam Neurological exam: Unable to fully assess due to patient being on the ventilator. She does appear to move all 4 extremities. - Psychiatric Psychiatric exam: Unable to assess due to patient being on the ventilator. - Skin Skin exam: Present: normal color, warm, dry, intact. Absent: cyanosis, diaphoretic, rash, urticaria Result/EKG - Labs CBC & BMP: 11/27/16 04:20 11/27/16 04:20 Lab Results: I have reviewed the past 24 hour labs Labs: Laboratory Results - last 24 hr 11/26/16 11/27/16 11/27/16 17:59 03:30 04:20 WBC 13.1 H RBC 4.23 Hgb 10.9 L Hct 34.8 L MCV 82.3 L MCH 26 L MCHC 31.3 L RDW 15.0 Plt Count 184 MPV 9.8 Neut % (Auto) 96.5 H Lymph % (Auto) 0.7 L [place] % (Auto) 2.2 Eos % (Auto) 0.0 Baso % (Auto) 0.0 Neut # (Auto) 12.7 H Lymph # (Auto) 0.1 L [place] # (Auto) 0.3 Eos # (Auto) 0.0 Baso # (Auto) 0.0 Total Counted 100 Immature Gran % 0.6 Nucleated RBC % 0.0 Immature Gran # 0.08 Segmented Neutrophils 92 H Lymphocytes 5 L Monocytes 1 L Myelocytes 1 Promyelocytes 1 Nucleated RBCs # 0.00 Platelet Estimate Normal Pappenheimer Bodies Cable Dispatcher ABG pH 7.457 H ABG pCO2 49.3 H ABG pO2 68.6 L ABG HCO3 33.0 H ABG Total CO2 30.8 H ABG O2 Saturation 93.6 L ABG Base Excess 9.3 H FiO2 40.00 Sodium Potassium Chloride Carbon Dioxide Anion Gap BUN Creatinine GFR Calculation BUN/Creatinine Ratio Glucose POC Glucose 159 H Calculated Osmolality Calcium Total Creatine Kinase CK-MB (CK-2) Troponin I 11/27/16 11/27/16 11/27/16 04:20 06:13 08:52 WBC RBC Hgb Hct MCV MCH MCHC RDW Plt Count MPV Neut % (Auto) Lymph % (Auto) [place] % (Auto) Eos % (Auto) Baso % (Auto) Neut # (Auto) Lymph # (Auto) [place] # (Auto) Eos # (Auto) Baso # (Auto) Total Counted Immature Gran % Nucleated RBC % Immature Gran # Segmented Neutrophils Lymphocytes Monocytes Myelocytes Promyelocytes Nucleated RBCs # Platelet Estimate Pappenheimer Bodies ABG pH ABG pCO2 ABG pO2 ABG HCO3 ABG Total CO2 ABG O2 Saturation ABG Base Excess FiO2 Sodium 144 Potassium 3.7 Chloride 106 Carbon Dioxide 33 H Anion Gap 8.7 BUN 38 H Creatinine 0.50 L GFR Calculation 133 BUN/Creatinine Ratio 76.00 H Glucose 224 H POC Glucose 234 H Calculated Osmolality 301.8 Calcium 8.1 L Total Creatine Kinase 161 CK-MB (CK-2) 1.4 Troponin I 0.024 Quality Measures - VTE Deep Vein Thrombosis/Pulmonary Embolism Present on Admission: No
--- NOTE | 2016-11-27 13:15 | Hospitalist Progress Note ---
Assessment and Plan (1) Acute respiratory failure Status: Acute Assessment and plan: Patient has a history of COPD and a bronchospastic disease.CXR done yesterday showed a small right sided pneumothorax and he currently has a chest tube placed. Microbiology. On 11/14/2016 the patient's sputum grew Zoë. Gram stain from 11/19/2016 shows less than 25 white blood cells per low power field. There are few gram-positive cocci and a few yeast. Microbiology 11/19/16- Sputum- no growth 11/21/2016 Chest tube still has small leak. Patient looks comfortable on the vent. He was awake. Dopplers- negative for DVT. 11/22/2016 Patient was re intubated yesterday because he was having problems with his ET. Chest tube to sunction still in place.CXR showed no significant change 11/23/2016 Doing well on the vent, may be extubated today.Chest tube is to gravity. He may be extubated today 11/24/2016 Patient was extubated yesterday but he had some trouble breathing overnight and ended up on a BIPAP. This am, he looked fairly comfortable but was still wheezing a little bit.His chest tube has been clamped.Sputum grew Zoë Albicans 11/25/2016 Patient was re-intubated at overnight due to laboured breathing and hypoxia. .His chest tube was back to suction. No obvious pneumothorax seen on today's chest x-ray. Small air leak present. CXR showed worsening infiltrate or atelectasis. 11/26/2016 Patient looks comfortable on the vent, he was awake and had his chest tube to suction. 11/27/2016 Chest tube is connected to water seal. He is doing fairly well on CPAP trials Plan continue IV Diflucan, antibiotics, vent support, chest tube continue Pulmonology and CT surgery's recommendations Current Visit: Yes (2) Acute exacerbation of chronic obstructive pulmonary disease (COPD) Status: Acute Assessment and plan: patient has severe lung disease. see treatment plan above Current Visit: Yes (3) Hypertension Status: Chronic Assessment and plan: poorly controlled, will increase Cardizem to 45mg q6hr, follow response Current Visit: No Qualifiers: Hypertension type: essential hypertension Qualified Code(s): I10 - Essential (primary) hypertension (4) Dyslipidemia Status: Inactive Assessment and plan: Lipids-noted, continue with statins Current Visit: No (5) Hyperglycemia Status: Acute Assessment and plan: due to ? steroids. Plan blood sugar is controlled on SSC, we will continue.HA1c level-7.0 Current Visit: Yes (6) Hypokalemia Status: Acute Assessment and plan: repleted Current Visit: Yes (7) Supraventricular tachycardia Status: Acute Assessment and plan: Cardiology is following. Current Visit: Yes Hospitalist: Subjective Interval history: Patient seen on the vent. His chest tube has been connected to water seal. Nursing staff reports his heart rate went up over night to the 140s.. Exam - Constitutional Vitals: Period Temp Pulse Resp BP Sys/Graf Pulse Ox Last 24 Hr 97.1 F-98 F 92-127 14-25 104-138/56-86 92-100 General appearance: no acute distress, other (awake and intubated) - Head Head exam: Present: normal inspection - Respiratory Respiratory exam: Present: decreased breath sounds - GI/Abdominal GI/Abdominal exam: Present: normal bowel sounds - Extremities Exam Extremities exam: Present: edema - Neurological Exam Neurological exam: Present: alert Results - Labs CBC & BMP: 11/27/16 04:20 11/27/16 04:20 Lab Results: I have reviewed the past 24 hour labs Quality Measures - VTE Deep Vein Thrombosis/Pulmonary Embolism Present on Admission: No
--- NOTE | 2016-11-27 13:59 | EKG Report ---
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
[2016-11-27] MEDS: NOREPINEPHRINE 8 MG in SODIUM CHLORIDE 0.9% 242 ML IV SCH (15:38)
[2016-11-27 15:45] LABS: Troponin I Only 0.025 NG/ML (0.00-0.045)
[2016-11-27] MEDS: LEVOFLOXACIN INJ 750 MG in PREMIX 1 EACH IV SCH (16:00)
[2016-11-27] MEDS: ENOXAPARIN 40 MG/0.4 ML SYRINGE SUBCUT SCH (16:00)
[2016-11-27] MEDS: PROPOFOL 1,000 MG/100 ML BOTTLE IV SCH ×2 (17:33→22:00)
[2016-11-27 21:55] LABS: Troponin I Only 0.032 NG/ML (0.00-0.045)
[2016-11-28] MEDS: methylPREDNISolone SOD SUC 125 MG/2 ML VIAL IV SCH ×3 (00:01→18:28)
[2016-11-28] MEDS: PIPERACILLIN/TAZOBACTAM 3,375 MG in SODIUM CHLORIDE 0.9% 100 ML IV SCH ×3 (00:01→18:29)
[2016-11-28] MEDS: SODIUM CHLORIDE 0.9% 1,000 ML IV SCH (00:18)
[2016-11-28 02:50] LABS: ABG Base Excess 9.3 MMOL/L (-2.5-2.5); ABG HCO3 33.1 MMOL/L (20-26); ABG Oxygen Saturation 97.4 % (95-100); ABG PH 7.446 (7.35-7.45); ABG PO2 92.2 MM HG (80-95); ABG TCO2 30.9 MMOL/L (23-27); Allen Test Positive; Pt O2 Delivery Device Ventilator
[2016-11-28] MEDS: ALBUTEROL/IPRATROPIUM 3 ML NEB RESP TX SCH ×7 (03:41→23:24)
[2016-11-28] MEDS: DILTIAZEM 30 MG TABLET PO SCH ×4 (04:22→20:33)
[2016-11-28 04:45] LABS: Basophils % 0.1 % (0.0-0.8); Hematocrit 30.8 VOL% (42.0-52.0); Hemoglobin 9.6 GM/DL (14.0-18.0); Immature Granulocytes % 0.8 %; Immature Granulocytes Absolute 0.12 #; Lymphocytes # 0.1 10*3/uL (1.4-4.0); Lymphocytes % 0.6 % (21.2-54.2); Mean Corpuscular HGB Conc 31.2 GM/DL (32-36); Mean Corpuscular Hemoglobin 26 PG (27-34); Mean Platelet Volume 10.5 FL (9.6-12.0); Monocytes # 0.2 10*3/uL (0.11-0.8); Monocytes % 1.3 % (1.7-12.7); Neutrophils # 13.8 10*3/uL (1.4-7.4); Neutrophils % 97.2 % (38.7-73.9); Platelet Count 179 T/CUMM (130-400); Red Blood Count 3.71 MC/CUMM (3.8-5.5); Red Cell Distribution Width 14.9 % (9.3-17.3); White Blood Count 14.2 T/CUMM (4-12)
[2016-11-28 05:14] LABS: Platelet Estimate Normal; Segmented Neutrophils 99 % (50-85); Total Cells Counted 100
[2016-11-28 05:15] LABS: Hypochromasia 1+; Microcytosis Slight; Ovalocytes Slight
[2016-11-28 05:17] LABS: Calcium 8.2 MG/DL (8.5-10.1); Osmolality,Calculated 302.7 MOS/KG (273-304); Potassium 4.2 MMOL/L (3.5-5.1)
--- NOTE | 2016-11-28 07:09 | EKG Report ---
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
[2016-11-28] MEDS: BUDESONIDE/FORMOTEROL 160-4.5 INHALER 6 GM INH SCH ×4 (07:20→21:00)
--- NOTE | 2016-11-28 07:58 | XRay Report ---
Referring Physician: Kyle Martin MD Exam: XR chest 1V portable Date: November 28, 2016 at 3:25 AM Reason: Mechanical ventilation Comparison: Chest one view portable November 27, 2016 Findings: An endotracheal tube, feeding tube and right chest tube are again in place. The cardiac silhouette is normal in size. There are scattered opacities within the left mid and lower lung zones and within the right lower lung zone, and emphysema is suspected. These opacities likely represent atelectasis, but there could also be pulmonary edema or pneumonia. No pneumothorax is identified, but there is likely mild bilateral pleural fluid. The osseous structures appear stable. Impression: There has been no significant change. PROCEDURE INTERPRETED AT [facility] DEPARTMENT OF RADIOLOGY Final Report Signed by: Dr. Shelby Guerrier
--- NOTE | 2016-11-28 08:24 | Cardiology Progress Note ---
Assessment and Plan (1) Supraventricular tachycardia Status: Acute Assessment and plan: This may have been atrial fibrillation. It is likely exacerbated by his acute illness, as well as the medications he is receiving. Will continue cardizem. He is currently not on therapeutic anticoagulation, but because these were few and brief episodes, for now we will just continue with prophylactic dosing. Echocardiogram overall is unremarkable. Free T4 was normal upon admission. Daily BMP and EKG. Further plan and addendum to follow per Dr. Ramos. Current Visit: Yes (2) Acute exacerbation of chronic obstructive pulmonary disease (COPD) Status: Acute Assessment and plan: He is receiving treatment for this from pulmonary and the hospitalist service. Current Visit: Yes (3) Pneumothorax, acute Status: Acute Assessment and plan: Continue current plan of care with chest tube. Current Visit: Yes (4) Hypertension Status: Chronic Assessment and plan: This is currently well controlled. Will continue current plan of care. Current Visit: No Qualifiers: Hypertension type: essential hypertension Qualified Code(s): I10 - Essential (primary) hypertension Cardiology - PN: Subj Interval history: The patient was admitted 11/19/2016 after presenting with shortness of breath. He is reported as having a history of hypertension, hyperlipidemia, COPD. He recently was hospitalized for an exacerbation 11/16/2016. He returned to the hospital with worsening symptoms, required intubation and subsequently developed a pneumothorax which has been treated with a chest tube. Cardiology was consulted yesterday for assistance with supraventricular tachycardia. Patient was seen and examined in the CCU. He remains sedated and ventilated. Aminophylline drip infusing. Telemetry has been reviewed. It appears that patient has been in normal sinus rhythm with occasional PACs noted. Heart rate is well controlled with calcium channel barbara. EKG this morning reveals normal sinus rhythm with heart rates in the 80s. Vital signs are stable. Electrolytes are stable with potassium of 4.2 noted. We will continue to wean patient from ventilator as he tolerates. Exam (Progress Note) - Constitutional Vitals: Period Temp Pulse Resp BP Sys/Graf Pulse Ox Last 24 Hr 97 F-97.6 F 86-120 0-27 103-188/60-105 90-100 Exam: General appearance: normal weight, no acute distress, intubated, alert and interactive. - Head Head exam: Present: normocephalic, atraumatic,. Absent: hematoma, laceration - Eye Eye exam: Absent: conjunctival injection, nystagmus, periorbital swelling, scleral icterus, laceration to eyelids Pupils: Present: CLAUDIA. Absent: constricted, dilated, fixed, irregular, unequal - ENT ENT exam: Present: Endotracheal tube in place, normal external ear exam - Neck Neck exam: Present: normal inspection. Absent: lymphadenopathy, meningismus, tenderness, thyromegaly - Respiratory Respiratory exam: Present: clear to auscultation bilaterally anteriorly, there is normal rise with ventilated breaths. Absent: accessory muscle use, chest wall tenderness - Cardiovascular Cardiovascular exam: Present: regular rate and rhythm. Absent: carotid bruit, gallop, JVD, rubs - GI/Abdominal GI/Abdominal exam: Present: normal bowel sounds. Absent: distended, firm, guarding, hernia, mass, tenderness, rebound, soft - Extremities Exam Extremities exam: Present: normal inspection, normal capillary refill. Absent: calf tenderness, edema - Back Exam Back exam: Unable to assess due to patient being on the ventilator - Neurological Exam Neurological exam: Unable to fully assess due to patient being on the ventilator. She does appear to move all 4 extremities. - Psychiatric Psychiatric exam: Unable to assess due to patient being on the ventilator. - Skin Skin exam: Present: normal color, warm, dry, intact. Absent: cyanosis, diaphoretic, rash, urticaria Result/EKG - Labs CBC & BMP: 11/28/16 03:54 11/28/16 03:54 Lab Results: I have reviewed the past 24 hour labs Labs: Laboratory Results - last 24 hr 11/27/16 11/27/16 11/27/16 08:52 13:01 15:18 WBC RBC Hgb Hct MCV MCH MCHC RDW Plt Count MPV Neut % (Auto) Lymph % (Auto) Emery % (Auto) Eos % (Auto) Baso % (Auto) Neut # (Auto) Lymph # (Auto) Emery # (Auto) Eos # (Auto) Baso # (Auto) Total Counted Immature Gran % Nucleated RBC % Immature Gran # Segmented Neutrophils Monocytes Nucleated RBCs # Platelet Estimate Hypochromasia Microcytosis Ovalocytes Morphology Comment ABG pH ABG pCO2 ABG pO2 ABG HCO3 ABG Total CO2 ABG O2 Saturation ABG Base Excess FiO2 Sodium Potassium Chloride Carbon Dioxide Anion Gap BUN Creatinine GFR Calculation BUN/Creatinine Ratio Glucose POC Glucose 179 H Calculated Osmolality Calcium Total Creatine Kinase 161 131 CK-MB (CK-2) 1.4 2.2 Troponin I 0.024 0.025 11/27/16 11/27/16 11/27/16 17:25 21:15 23:53 WBC RBC Hgb Hct MCV MCH MCHC RDW Plt Count MPV Neut % (Auto) Lymph % (Auto) Emery % (Auto) Eos % (Auto) Baso % (Auto) Neut # (Auto) Lymph # (Auto) Emery # (Auto) Eos # (Auto) Baso # (Auto) Total Counted Immature Gran % Nucleated RBC % Immature Gran # Segmented Neutrophils Monocytes Nucleated RBCs # Platelet Estimate Hypochromasia Microcytosis Ovalocytes Morphology Comment ABG pH ABG pCO2 ABG pO2 ABG HCO3 ABG Total CO2 ABG O2 Saturation ABG Base Excess FiO2 Sodium Potassium Chloride Carbon Dioxide Anion Gap BUN Creatinine GFR Calculation BUN/Creatinine Ratio Glucose POC Glucose 171 H 157 H Calculated Osmolality Calcium Total Creatine Kinase 97 D CK-MB (CK-2) 2.4 Troponin I 0.032 11/28/16 11/28/16 11/28/16 02:34 03:54 03:54 WBC 14.2 H RBC 3.71 L Hgb 9.6 L Hct 30.8 L MCV 83.0 L MCH 26 L MCHC 31.2 L RDW 14.9 Plt Count 179 MPV 10.5 Neut % (Auto) 97.2 H Lymph % (Auto) 0.6 L Emery % (Auto) 1.3 L Eos % (Auto) 0.0 Baso % (Auto) 0.1 Neut # (Auto) 13.8 H Lymph # (Auto) 0.1 L Emery # (Auto) 0.2 Eos # (Auto) 0.0 Baso # (Auto) 0.0 Total Counted 100 Immature Gran % 0.8 Nucleated RBC % 0.0 Immature Gran # 0.12 Segmented Neutrophils 99 H Monocytes 1 L Nucleated RBCs # 0.00 Platelet Estimate Normal Hypochromasia 1+ Microcytosis Slight Ovalocytes Slight Morphology Comment ABG pH 7.446 ABG pCO2 51.0 H ABG pO2 92.2 ABG HCO3 33.1 H ABG Total CO2 30.9 H ABG O2 Saturation 97.4 ABG Base Excess 9.3 H FiO2 40.00 Sodium 145 Potassium 4.2 Chloride 107 Carbon Dioxide 33 H Anion Gap 9.2 BUN 33 H Creatinine 0.50 L GFR Calculation 135 BUN/Creatinine Ratio 66.00 H Glucose 239 H POC Glucose Calculated Osmolality 302.7 Calcium 8.2 L Total Creatine Kinase CK-MB (CK-2) Troponin I 11/28/16 05:20 WBC RBC Hgb Hct MCV MCH MCHC RDW Plt Count MPV Neut % (Auto) Lymph % (Auto) Emery % (Auto) Eos % (Auto) Baso % (Auto) Neut # (Auto) Lymph # (Auto) Emery # (Auto) Eos # (Auto) Baso # (Auto) Total Counted Immature Gran % Nucleated RBC % Immature Gran # Segmented Neutrophils Monocytes Nucleated RBCs # Platelet Estimate Hypochromasia Microcytosis Ovalocytes Morphology Comment ABG pH ABG pCO2 ABG pO2 ABG HCO3 ABG Total CO2 ABG O2 Saturation ABG Base Excess FiO2 Sodium Potassium Chloride Carbon Dioxide Anion Gap BUN Creatinine GFR Calculation BUN/Creatinine Ratio Glucose POC Glucose 223 H Calculated Osmolality Calcium Total Creatine Kinase CK-MB (CK-2) Troponin I - EKG EKG results: interpreted by me, sinus rhythm Quality Measures - VTE Deep Vein Thrombosis/Pulmonary Embolism Present on Admission: No
--- NOTE | 2016-11-28 08:38 | Pulmonology Progress Note ---
Pulmonary - PN: Subj Interval history: Patient is a 66-year-old black man with a long history of COPD along with hypertension and hyperlipidemia. He apparently was in the hospital recently with an exacerbation of his COPD. He went home and did not get any better and came back with more shortness of breath. He was found to have a small right spontaneous pneumothorax. He was on the ventilator for several days and extubated. He did get more short of breath and was on BiPAP for a while. He continues to fatigue and is back on the ventilator now. He diuresed fairly well and he does seem more alert today. He is doing a little better and is back on CPAP trials. He wants his ventilator out he did struggle last time. His chest x-ray still shows bibasilar infiltrates. Will proceed with a therapeutic bronchoscopy today. Exam (Progress Note) - Constitutional Vitals: Period Temp Pulse Resp BP Sys/Graf Pulse Ox Last 24 Hr 97 F-97.6 F 86-120 0-27 103-188/60-105 90-100 Exam: General appearance: no acute distress, under weight, other (Patient is awake and responding on the ventilator. He is doing CPAP better.) - Head Head exam: Present: normal inspection, normocephalic - Eye Eye exam: Present: EOMI. Absent: scleral icterus Pupils: Present: RAHEEL - ENT ENT exam: Present: The ET tube is in good position. - Neck Neck exam: Present: normal inspection. Absent: lymphadenopathy, thyromegaly - Respiratory Respiratory exam: Present: He has very distant breath sounds throughout with bilateral rhonchi. He is moving air okay. He does not have much wheeze. - Cardiovascular Cardiovascular exam: Present: regular rate and rhythm. Absent: gallop, systolic murmur - GI/Abdominal GI/Abdominal exam: Present: normal bowel sounds, soft. Absent: distended, organomegaly, tenderness - Extremities Exam Extremities exam: Absent: calf tenderness, edema - Neurological Exam Neurological exam: Present: alert, he can move his extremities okay. He responds well. - Skin Skin exam: Present: warm, dry Results - Labs CBC & BMP: 11/28/16 03:54 11/28/16 03:54 Labs: His PO2 is 92 with a PCO2 of 51 and pH of 7.44 - Diagnostic Findings Procedure: Chest x-ray: image reviewed by me, report reviewed by me (Chest x- ray still shows bibasilar infiltrates.) Assessment and Plan (1) Hypertension Status: Chronic Assessment and plan: He has a stable blood pressure now. Current Visit: No Qualifiers: Qualified Code(s): I10 - Essential (primary) hypertension (2) Pneumothorax, acute Status: Acute Assessment and plan: His right lung is expanded and there is no pneumothorax now. I do not see an air leak. His chest x-ray is stable. Current Visit: Yes (3) Acute respiratory failure Status: Acute Assessment and plan: The patient has severe COPD with respiratory failure. He is improving and doing CPAP a little better. Will plan a therapeutic bronchoscopy today and clear his airways. Hopefully can try to extubate soon. Current Visit: Yes (4) Acute exacerbation of chronic obstructive pulmonary disease (COPD) Status: Acute Assessment and plan: Patient has significant COPD and is being treated with steroids and bronchodilator therapy. We will continue ventilatory support for now. Current Visit: Yes
[2016-11-28] MEDS: PROPOFOL 1,000 MG/100 ML BOTTLE IV SCH ×2 (09:27→21:30)
[2016-11-28] MEDS: PANTOPRAZOLE 40 MG VIAL IV SCH (09:28)
[2016-11-28] MEDS: FLUCONAZOLE INJ 200 MG in PREMIX 1 EACH IV SCH (09:33)
[2016-11-28] MEDS: ATORVASTATIN 10 MG TABLET PO SCH (09:34)
--- NOTE | 2016-11-28 09:43 | Operative Note ---
Date of procedure: 11/28/16 Pre-op diagnosis: Respiratory failure Post-op diagnosis: other (Bronchitis with mucous plugging) Procedure: Patient is on the ventilator in the ICU. He is having trouble weaning. A therapeutic bronchoscopy will be done to clear airways. He is sedated with Diprivan. Procedure: The fiberoptic bronchoscope was passed to the ET tube into the airways. The bronchopulmonary segments were identified but no specimens obtained. Findings: The ET tube is in good position in the trachea. The main bronchi are open. There is very thick mucus and plugs in both main bronchi that were washed and cleared with the bronchoscope. There is mild bronchitis present but the airways are open. Once the thick secretions were clear the procedure was stopped. He tolerated the procedure well without any problems. Impression: Bronchitis with mucous plugging. Plan: We will continue weaning from the ventilator. Anesthesia: conscious sedation Surgeon / Physician: Kyle Martin Estimated blood loss: none Specimens: none sent Condition: stable Disposition: ICU Results - Labs CBC & BMP: 11/28/16 03:54 11/28/16 03:54 Discharge Plan - Discharge Medications No Action Cetirizine Tab [ZyrTEC Tab] 10 mg PO DAILY Atorvastatin [Lipitor] 10 mg PO DAILY Theophylline ER Tab (24 Hr) 400 mg PO DAILY Diltiazem HCl [Diltiazem ER (24 hr)] 360 mg PO DAILY Pantoprazole Tab [Protonix Tab] 40 mg PO DAILY Furosemide Tab [Lasix Tab] 40 mg PO DAILY Albuterol Sulfate [Ventolin HFA] 2 puff INH Q4H PRN PRN Reason: Shortness Of Breath/Wheezing Roflumilast [Daliresp] 500 mcg PO DAILY Levofloxacin Tab [Levaquin Tab] 750 mg PO DAILY #7 tablet Budesonide/Formoterol 160-4.5 [Symbicort 160-4.5] 2 puff INH BID Acetaminophen Tab [Tylenol Tab] 325 mg PO Q4H PRN #0 tablet PRN Reason: fever, headache/body aches Magnesium Hydroxide Susp [Milk of Magnesia] 30 ml PO BID PRN #0 PRN Reason: Constipation Melatonin 3 mg PO BEDTIME PRN #0 tablet PRN Reason: Sleep predniSONE [Prednisone] 20 mg PO DIRECTED 10 Days - Follow Up or Referral - Forms/Instructions
--- NOTE | 2016-11-28 10:04 | General Surgery Progress Note ---
Assessment and Plan (1) Pneumothorax, acute Status: Acute Assessment and plan: Impression: Pneumothorax right side Plan: Continue chest tube to waterseal. Small air leak noted. Chest x-ray looks okay with the lung expanded. Current Visit: Yes Subjective Narrative: Remains intubated Exam - Constitutional Vitals: Period Temp Pulse Resp BP Sys/Graf Pulse Ox Last 24 Hr 97 F-97.6 F 86-120 0-27 103-188/60-119 90-100 General appearance: no acute distress - Head Head exam: Present: normocephalic - Respiratory Respiratory exam: Present: other (chest tube with small air leak) - Cardiovascular Cardiovascular exam: Present: RRR - GI/Abdominal GI/Abdominal exam: Present: soft (nondistended) Results - Labs CBC & BMP: 11/28/16 03:54 11/28/16 03:54 Lab Results: I have reviewed the past 24 hour labs Quality Measures - VTE Deep Vein Thrombosis/Pulmonary Embolism Present on Admission: No
--- NOTE | 2016-11-28 12:11 | Hospitalist Progress Note ---
Assessment and Plan (1) Acute respiratory failure Status: Acute Assessment and plan: Patient has a history of COPD and a bronchospastic disease.CXR done yesterday showed a small right sided pneumothorax and he currently has a chest tube placed. Microbiology. On 11/14/2016 the patient's sputum grew Zoë. Gram stain from 11/19/2016 shows less than 25 white blood cells per low power field. There are few gram-positive cocci and a few yeast. Microbiology 11/19/16- Sputum- no growth 11/21/2016 Chest tube still has small leak. Patient looks comfortable on the vent. He was awake. Dopplers- negative for DVT. 11/22/2016 Patient was re intubated yesterday because he was having problems with his ET. Chest tube to sunction still in place.CXR showed no significant change 11/23/2016 Doing well on the vent, may be extubated today.Chest tube is to gravity. He may be extubated today 11/24/2016 Patient was extubated yesterday but he had some trouble breathing overnight and ended up on a BIPAP. This am, he looked fairly comfortable but was still wheezing a little bit.His chest tube has been clamped.Sputum grew Zoë Albicans 11/25/2016 Patient was re-intubated at overnight due to laboured breathing and hypoxia. .His chest tube was back to suction. No obvious pneumothorax seen on today's chest x-ray. Small air leak present. CXR showed worsening infiltrate or atelectasis. 11/26/2016 Patient looks comfortable on the vent, he was awake and had his chest tube to suction. 11/27/2016 Chest tube is connected to water seal. He is doing fairly well on CPAP trials 11/28/2016 He had a bronchoscopy this am. His chest tube is still to water seal. He is tolerating CPAP trials. Plan continue IV Diflucan, antibiotics, vent support, chest tube continue Pulmonology and CT surgery's recommendations Current Visit: Yes (2) Acute exacerbation of chronic obstructive pulmonary disease (COPD) Status: Acute Assessment and plan: patient has severe lung disease. see treatment plan above Current Visit: Yes (3) Hypertension Status: Chronic Assessment and plan: poorly controlled, will add HCTZ 12.5mg daily, follow response Current Visit: No Qualifiers: Hypertension type: essential hypertension Qualified Code(s): I10 - Essential (primary) hypertension (4) Dyslipidemia Status: Inactive Assessment and plan: Lipids-noted, continue with statins Current Visit: No (5) Hyperglycemia Status: Acute Assessment and plan: due to ? steroids. Plan HA1c level-7.0. Continue with SSC insulin and acu checks Current Visit: Yes (6) Hypokalemia Status: Acute Assessment and plan: repleted Current Visit: Yes (7) Supraventricular tachycardia Status: Acute Assessment and plan: Cardiology is following.Echo revealed normal left ventricular cavity size. Mild concentric left ventricular hypertrophy with diastolic dysfunction. left ventricular EF-60-65% Current Visit: Yes (8) Pneumothorax, acute Status: Acute Assessment and plan: s/p chest tube to water seal. Plan Follow Pulm and CT surgery's recommendations Current Visit: Yes Hospitalist: Subjective Interval history: Patient had a bronchoscopy this am.His chest tube is to water seal. Small air leak noted. He is doing well on CPAP trials. Exam - Constitutional Vitals: Period Temp Pulse Resp BP Sys/Graf Pulse Ox Last 24 Hr 97 F-98.1 F 6-120 0-27 103-193/60-119 90-100 General appearance: no acute distress, other (chest tube to water seal) - Respiratory Respiratory exam: Present: clear to auscultation bilaterally - Cardiovascular Cardiovascular exam: Present: regular rate and rhythm - GI/Abdominal GI/Abdominal exam: Present: normal bowel sounds - Extremities Exam Extremities exam: Present: normal inspection Results - Labs CBC & BMP: 11/28/16 03:54 11/28/16 03:54 Lab Results: I have reviewed the past 24 hour labs Quality Measures - VTE Deep Vein Thrombosis/Pulmonary Embolism Present on Admission: No
[2016-11-28] MEDS: MIDAZOLAM 100 MG in SODIUM CHLORIDE 0.9% 80 ML IV SCH ×2 (12:24→23:43)
[2016-11-28] MEDS: DESITIN 4OZ/NYSTATIN 15 GRAM MIXTURE PASTE TOP SCH ×2 (12:25→20:35)
[2016-11-28] MEDS ORDERED: GLUCAGON 1 MG VIAL IM PRN (12:35)
[2016-11-28] MEDS ORDERED: DEXTROSE 50% 25 GM/50 ML VIAL IV PRN (12:35)
[2016-11-28] MEDS: hydroCHLOROthiazide 12.5 MG CAPSULE PO SCH (15:12)
[2016-11-28] MEDS: AMINOPHYLLINE 1,000 MG in SODIUM CHLORIDE 0.9% 460 ML IV SCH (15:31)
[2016-11-28] MEDS: ENOXAPARIN 40 MG/0.4 ML SYRINGE SUBCUT SCH (18:27)
[2016-11-28] MEDS: INSULIN REGULAR 100 UNIT/ML SUBCUT SCH ×2 (18:29→23:42)
[2016-11-28] MEDS: LEVOFLOXACIN INJ 750 MG in PREMIX 1 EACH IV SCH (18:33)
[2016-11-29] MEDS: methylPREDNISolone SOD SUC 125 MG/2 ML VIAL IV SCH ×3 (01:02→17:51)
[2016-11-29] MEDS: PIPERACILLIN/TAZOBACTAM 3,375 MG in SODIUM CHLORIDE 0.9% 100 ML IV SCH ×3 (01:04→17:49)
[2016-11-29] MEDS: ALBUTEROL/IPRATROPIUM 3 ML NEB RESP TX SCH ×6 (02:49→23:39)
[2016-11-29] MEDS: DILTIAZEM 30 MG TABLET PO SCH (03:55)
[2016-11-29] MEDS: PROPOFOL 1,000 MG/100 ML BOTTLE IV SCH ×2 (03:56→22:00)
[2016-11-29 04:32] LABS: Basophils % 0.1 % (0.0-0.8); Hematocrit 33.2 VOL% (42.0-52.0); Immature Granulocytes % 1.3 %; Immature Granulocytes Absolute 0.18 #; Lymphocytes # 0.1 10*3/uL (1.4-4.0); Lymphocytes % 0.8 % (21.2-54.2); Mean Corpuscular HGB Conc 30.1 GM/DL (32-36); Mean Corpuscular Hemoglobin 25 PG (27-34); Mean Corpuscular Volume 84.1 FL (87-102); Mean Platelet Volume 9.7 FL (9.6-12.0); Monocytes # 0.2 10*3/uL (0.11-0.8); Monocytes % 1.6 % (1.7-12.7); Neutrophils # 13.8 10*3/uL (1.4-7.4); Neutrophils % 96.2 % (38.7-73.9); Platelet Count 159 T/CUMM (130-400); Red Blood Count 3.95 MC/CUMM (3.8-5.5); White Blood Count 14.3 T/CUMM (4-12)
[2016-11-29 04:51] LABS: Calcium 8.2 MG/DL (8.5-10.1); Magnesium 2.3 MG/DL (1.8-2.4); Osmolality,Calculated 297.7 MOS/KG (273-304); Potassium 4.1 MMOL/L (3.5-5.1)
[2016-11-29 05:01] LABS: Hypochromasia 1+; Lymphocytes 2 % (20-55); Ovalocytes Slight; Platelet Estimate Normal; Segmented Neutrophils 96 % (50-85); Total Cells Counted 100
[2016-11-29 05:02] LABS: Microcytosis Slight
[2016-11-29 05:03] LABS: Calcium 8.3 MG/DL (8.5-10.1); Osmolality,Calculated 294.8 MOS/KG (273-304); Potassium 3.9 MMOL/L (3.5-5.1)
[2016-11-29] MEDS: INSULIN REGULAR 100 UNIT/ML SUBCUT SCH ×3 (06:17→18:04)
--- NOTE | 2016-11-29 07:24 | General Surgery Progress Note ---
Assessment and Plan (1) Pneumothorax, acute Status: Acute Assessment and plan: Impression: Pneumothorax right side Plan: I don't see any air leak today. Chest x-ray pending. Continue chest tube to waterseal. Current Visit: Yes Subjective Narrative: Patient tolerated CPAP trials for part of the day yesterday Exam - Constitutional Vitals: Period Temp Pulse Resp BP Sys/Graf Pulse Ox Last 24 Hr 97.5 F-98.2 F 6-124 14-29 110-193/70-119 90-100 General appearance: no acute distress - Head Head exam: Present: normocephalic - Respiratory Respiratory exam: Present: clear to auscultation bilaterally - Cardiovascular Cardiovascular exam: Present: RRR - GI/Abdominal GI/Abdominal exam: Present: soft Results - Labs CBC & BMP: 11/29/16 04:16 11/29/16 04:16 Lab Results: I have reviewed the past 24 hour labs Quality Measures - VTE Deep Vein Thrombosis/Pulmonary Embolism Present on Admission: No
--- NOTE | 2016-11-29 08:45 | Pulmonology Progress Note ---
Pulmonary - PN: Subj Interval history: Patient is a 66-year-old black man with a long history of COPD along with hypertension and hyperlipidemia. He apparently was in the hospital recently with an exacerbation of his COPD. He went home and did not get any better and came back with more shortness of breath. He was found to have a small right spontaneous pneumothorax. He was on the ventilator for several days and extubated. He did get more short of breath and was on BiPAP for a while. He continues to fatigue and is back on the ventilator now. He has looked a little better and did CPAP yesterday. He still gets tired at times. Yesterday we did a therapeutic bronchoscopy and cleared out some thick secretions. He is alert and comfortable this morning. Exam (Progress Note) - Constitutional Vitals: Period Temp Pulse Resp BP Sys/Graf Pulse Ox Last 24 Hr 97.5 F-98.2 F 6-124 14-29 110-193/70-119 90-100 Exam: General appearance: no acute distress, under weight, other (Patient is awake and responding on the ventilator. He is doing CPAP better.) - Head Head exam: Present: normal inspection, normocephalic - Eye Eye exam: Present: EOMI. Absent: scleral icterus Pupils: Present: RAHEEL - ENT ENT exam: Present: The ET tube is in good position. - Neck Neck exam: Present: normal inspection. Absent: lymphadenopathy, thyromegaly - Respiratory Respiratory exam: Present: He has distant breath sounds with prolonged expiration and some faint wheezing still. - Cardiovascular Cardiovascular exam: Present: regular rate and rhythm. Absent: gallop, systolic murmur - GI/Abdominal GI/Abdominal exam: Present: normal bowel sounds, soft. Absent: distended, organomegaly, tenderness - Extremities Exam Extremities exam: Absent: calf tenderness, edema - Neurological Exam Neurological exam: Present: alert, he can move his extremities okay. He responds well. - Skin Skin exam: Present: warm, dry Results - Labs CBC & BMP: 11/29/16 04:16 11/29/16 04:16 Assessment and Plan (1) Hypertension Status: Chronic Assessment and plan: He has a stable blood pressure now. Current Visit: No Qualifiers: Hypertension type: essential hypertension Qualified Code(s): I10 - Essential (primary) hypertension (2) Pneumothorax, acute Status: Acute Assessment and plan: His right lung is expanded and there is no pneumothorax now. I do not see an air leak. His chest x-ray is stable. Current Visit: Yes (3) Acute respiratory failure Status: Acute Assessment and plan: The patient has severe COPD with respiratory failure. He continues to wean okay and is doing CPAP better. He is reasonably comfortable on the ventilator. Will repeat a chest x-ray and ABGs and see if he can come off the ventilator. Current Visit: Yes (4) Acute exacerbation of chronic obstructive pulmonary disease (COPD) Status: Acute Assessment and plan: Patient has significant COPD and is being treated with steroids and bronchodilator therapy. Will continue with vigorous respiratory therapy Current Visit: Yes
--- NOTE | 2016-11-29 08:52 | Cardiology Progress Note ---
Rosalio Wagner Vanessa, RN, am scribing for, and in the presence of, Terry Ramos MD 08 :52. Assessment and Plan - Time spent with patient Time spent with patient: Greater than 30 minutes (1) Supraventricular tachycardia Status: Acute Assessment and plan: 66 year old black male with severe COPD and pneumothorax, required intubation. He is also hypertensive. Has had atrial tachycardia with no sustained episodes of atrial fibrillation. Currently rate controlled with Cardizem. 1. PAT, MAT- incr Cardizem to 6 mg q6h. May consider changing to Xopenex instead of less selective inhalers if tachycardia becomes an issue. No indication for anticoagulation at this time. 2. COPD - if atrial arrhythmia remains recurrent, adding BB or amiodarone is an option. High risk for pulm side effects 3. HTN - elevated BP today. Will monitor with incr CCB Current Visit: Yes (2) Acute exacerbation of chronic obstructive pulmonary disease (COPD) Status: Acute Current Visit: Yes (3) Pneumothorax, acute Status: Acute Current Visit: Yes (4) Hypertension Status: Chronic Current Visit: No Qualifiers: Hypertension type: essential hypertension Qualified Code(s): I10 - Essential (primary) hypertension Cardiology - PN: Subj Interval history: Remains intubated with light sedation in CCU this morning, completing CPAP trial. Appears comfortable on ventilator. Episodes of AT/MAT, more when getting suctioned. Exam (Progress Note) - Constitutional Vitals: Period Temp Pulse Resp BP Sys/Graf Pulse Ox Last 24 Hr 97.5 F-98.2 F 6-124 14-29 110-193/70-119 90-100 Exam: General appearance: normal weight, no acute distress, intubated, alert - Head Head exam: Present: normocephalic, atraumatic,. Absent: hematoma, laceration - Eye Eye exam: Absent: conjunctival injection, nystagmus, periorbital swelling, scleral icterus, laceration to eyelids Pupils: Present: CLAUDIA. Absent: constricted, dilated, fixed, irregular, unequal - ENT ENT exam: Present: Endotracheal tube in place, normal external ear exam - Neck Neck exam: Present: normal inspection. Absent: lymphadenopathy, meningismus, tenderness, thyromegaly - Respiratory Respiratory exam: Present: clear to auscultation bilaterally anteriorly, there is normal rise with ventilated breaths. Absent: accessory muscle use, chest wall tenderness - Cardiovascular Cardiovascular exam: Present: regular rate and rhythm. Absent: carotid bruit, gallop, JVD, rubs - GI/Abdominal GI/Abdominal exam: Present: normal bowel sounds. Absent: distended, firm, guarding, hernia, mass, tenderness, rebound, soft - Extremities Exam Extremities exam: Present: normal inspection, normal capillary refill. Absent: calf tenderness, edema - Back Exam Back exam: Unable to assess due to patient being on the ventilator - Neurological Exam Neurological exam: Unable to fully assess due to patient being on the ventilator. He does appear to move all 4 extremities, able to follow commands - Psychiatric Psychiatric exam: Unable to assess due to patient being on the ventilator. - Skin Skin exam: Present: normal color, warm, dry, intact. Absent: cyanosis, diaphoretic, rash, urticaria Result/EKG - Labs CBC & BMP: 11/29/16 04:16 11/29/16 04:16 Lab Results: I have reviewed the past 24 hour labs Labs: Laboratory Results - last 24 hr 11/28/16 11/28/16 11/28/16 12:42 17:40 23:32 WBC RBC Hgb Hct MCV MCH MCHC RDW Plt Count MPV Neut % (Auto) Lymph % (Auto) Norton % (Auto) Eos % (Auto) Baso % (Auto) Neut # (Auto) Lymph # (Auto) Norton # (Auto) Eos # (Auto) Baso # (Auto) Total Counted Immature Gran % Nucleated RBC % Immature Gran # Segmented Neutrophils Lymphocytes Monocytes Nucleated RBCs # Platelet Estimate Hypochromasia Microcytosis Ovalocytes Morphology Comment Sodium Potassium Chloride Carbon Dioxide Anion Gap BUN Creatinine GFR Calculation BUN/Creatinine Ratio Glucose POC Glucose 161 H 192 H 170 H Calculated Osmolality Calcium Magnesium 11/29/16 11/29/16 11/29/16 04:16 04:16 04:16 WBC 14.3 H RBC 3.95 Hgb 10.0 L Hct 33.2 L MCV 84.1 L MCH 25 L MCHC 30.1 L RDW 15.0 Plt Count 159 MPV 9.7 Neut % (Auto) 96.2 H Lymph % (Auto) 0.8 L Norton % (Auto) 1.6 L Eos % (Auto) 0.0 Baso % (Auto) 0.1 Neut # (Auto) 13.8 H Lymph # (Auto) 0.1 L Norton # (Auto) 0.2 Eos # (Auto) 0.0 Baso # (Auto) 0.0 Total Counted 100 Immature Gran % 1.3 Nucleated RBC % 0.0 Immature Gran # 0.18 Segmented Neutrophils 96 H Lymphocytes 2 L Monocytes 2 Nucleated RBCs # 0.00 Platelet Estimate Normal Hypochromasia 1+ Microcytosis Slight Ovalocytes Slight Morphology Comment Sodium 145 144 Potassium 4.1 3.9 Chloride 103 102 Carbon Dioxide 37 H 36 H Anion Gap 9.1 9.9 BUN 28 H 27 H Creatinine 0.40 L 0.40 L GFR Calculation 151 151 BUN/Creatinine Ratio 70.00 H 67.00 H Glucose 175 H 174 H POC Glucose Calculated Osmolality 297.7 294.8 Calcium 8.2 L 8.3 L Magnesium 2.3 11/29/16 06:01 WBC RBC Hgb Hct MCV MCH MCHC RDW Plt Count MPV Neut % (Auto) Lymph % (Auto) Norton % (Auto) Eos % (Auto) Baso % (Auto) Neut # (Auto) Lymph # (Auto) Norton # (Auto) Eos # (Auto) Baso # (Auto) Total Counted Immature Gran % Nucleated RBC % Immature Gran # Segmented Neutrophils Lymphocytes Monocytes Nucleated RBCs # Platelet Estimate Hypochromasia Microcytosis Ovalocytes Morphology Comment Sodium Potassium Chloride Carbon Dioxide Anion Gap BUN Creatinine GFR Calculation BUN/Creatinine Ratio Glucose POC Glucose 150 H Calculated Osmolality Calcium Magnesium - Diagnostic Findings Procedure: Chest x-ray: report reviewed by me, image reviewed by me - EKG EKG results: interpreted by me, no acute changes EKG shows: tachycardia (sinus tachycardia, pulse 110 bpm) Quality Measures - VTE Deep Vein Thrombosis/Pulmonary Embolism Present on Admission: No Richard Wagner Attila, MD, personally performed the services described in this documentation, ascribed by Loren Santamaria RN in my presence, and it is both accurate and complete 852 .
[2016-11-29] MEDS: BUDESONIDE/FORMOTEROL 160-4.5 INHALER 6 GM INH SCH ×2 (09:09→21:00)
[2016-11-29 09:10] LABS: Pt O2 Delivery Device Ventilator
[2016-11-29 09:11] LABS: ABG Base Excess 11.9 MMOL/L (-2.5-2.5); ABG HCO3 35.6 MMOL/L (20-26); ABG Oxygen Saturation 97.5 % (95-100); ABG PCO2 66.7 MM HG (35-48); ABG PH 7.384 (7.35-7.45); ABG PO2 94.6 MM HG (80-95); ABG TCO2 35.8 MMOL/L (23-27)
--- NOTE | 2016-11-29 09:21 | XRay Report ---
Single view the chest. Indication: Ventilated patient. Comparison: Exam from earlier today. An endotracheal tube and nasogastric tube are in satisfactory position. A chest tube is in place on the right. The lung blum are hyperexpanded. Bullous disease is suggested at the lung apices. There are bilateral areas of basilar atelectasis. There is improvement in aeration at the left lung base. Small pleural effusions are also suspected. Impression: Some improvement in aeration at the left base. Findings of COPD. No change in the tubular supporting devices. PROCEDURE INTERPRETED AT [facility] DEPARTMENT OF RADIOLOGY Final Report Signed by: Dr. Yenny Prakash
--- NOTE | 2016-11-29 09:43 | EKG Report ---
Please refer to the EKG image. Final interpretation is pending.
--- NOTE | 2016-11-29 10:18 | Hospitalist Progress Note ---
Assessment and Plan (1) Acute respiratory failure Status: Acute Assessment and plan: Patient has a history of COPD and a bronchospastic disease.CXR done yesterday showed a small right sided pneumothorax and he currently has a chest tube placed. Microbiology. On 11/14/2016 the patient's sputum grew Zoë. Gram stain from 11/19/2016 shows less than 25 white blood cells per low power field. There are few gram-positive cocci and a few yeast. Microbiology 11/19/16- Sputum- no growth 11/21/2016 Chest tube still has small leak. Patient looks comfortable on the vent. He was awake. Dopplers- negative for DVT. 11/22/2016 Patient was re intubated yesterday because he was having problems with his ET. Chest tube to sunction still in place.CXR showed no significant change 11/23/2016 Doing well on the vent, may be extubated today.Chest tube is to gravity. He may be extubated today 11/24/2016 Patient was extubated yesterday but he had some trouble breathing overnight and ended up on a BIPAP. This am, he looked fairly comfortable but was still wheezing a little bit.His chest tube has been clamped.Sputum grew Zoë Albicans 11/25/2016 Patient was re-intubated at overnight due to laboured breathing and hypoxia. .His chest tube was back to suction. No obvious pneumothorax seen on today's chest x-ray. Small air leak present. CXR showed worsening infiltrate or atelectasis. 11/26/2016 Patient looks comfortable on the vent, he was awake and had his chest tube to suction. 11/27/2016 Chest tube is connected to water seal. He is doing fairly well on CPAP trials 11/28/2016 He had a bronchoscopy this am. His chest tube is still to water seal. He is tolerating CPAP trials. 11/29/2016 Patient seen on the vent with his chest tube in water seal. He had a therapeutic bronchoscopy yesterday and some thick secretions were cleared.He is tolerating CPAP trials. Plan continue IV Diflucan, antibiotics, vent support, chest tube continue Pulmonology and CT surgery's recommendations Current Visit: Yes (2) Acute exacerbation of chronic obstructive pulmonary disease (COPD) Status: Acute Assessment and plan: patient has severe lung disease. see treatment plan above Current Visit: Yes (3) Hypertension Status: Chronic Assessment and plan: poorly controlled, will increase HCTZ to 25mg daily, follow response Current Visit: No Qualifiers: Hypertension type: essential hypertension Qualified Code(s): I10 - Essential (primary) hypertension (4) Dyslipidemia Status: Inactive Assessment and plan: Lipids-noted, continue with statins Current Visit: No (5) Hyperglycemia Status: Acute Assessment and plan: due to ? steroids. Plan HA1c level-7.0. Continue with SSC insulin and acu checks Current Visit: Yes (6) Hypokalemia Status: Acute Assessment and plan: repleted Current Visit: Yes (7) Supraventricular tachycardia Status: Acute Assessment and plan: Cardiology is following.Echo revealed normal left ventricular cavity size. Mild concentric left ventricular hypertrophy with diastolic dysfunction. left ventricular EF-60-65% Current Visit: Yes (8) Pneumothorax, acute Status: Acute Assessment and plan: s/p chest tube to water seal. Plan Follow Pulm and CT surgery's recommendations Current Visit: Yes Hospitalist: Subjective Interval history: Patient seen on the vent with his chest tube in water seal. He had a therapeutic bronchoscopy yesterday and some thick secretions were cleared. He was alert and obeying commands this am. Exam - Constitutional Vitals: Period Temp Pulse Resp BP Sys/Graf Pulse Ox Last 24 Hr 97.5 F-98.2 F 90-124 14-29 110-190/70-100 90-100 General appearance: no acute distress, other (awake, intubated, chest tube in water seal) - Respiratory Respiratory exam: Present: decreased breath sounds - Cardiovascular Cardiovascular exam: Present: regular rate and rhythm - GI/Abdominal GI/Abdominal exam: Present: normal bowel sounds - Extremities Exam Extremities exam: Present: edema - Neurological Exam Neurological exam: Present: alert Results - Labs CBC & BMP: 11/29/16 04:16 11/29/16 04:16 Lab Results: I have reviewed the past 24 hour labs Quality Measures - VTE Deep Vein Thrombosis/Pulmonary Embolism Present on Admission: No
[2016-11-29] MEDS: DESITIN 4OZ/NYSTATIN 15 GRAM MIXTURE PASTE TOP SCH ×2 (10:22→20:19)
[2016-11-29] MEDS: hydroCHLOROthiazide 12.5 MG CAPSULE PO SCH ×2 (10:22→10:39)
[2016-11-29] MEDS: DILTIAZEM 60 MG TABLET PO SCH ×3 (10:22→19:55)
[2016-11-29] MEDS: PANTOPRAZOLE 40 MG VIAL IV SCH (10:23)
[2016-11-29] MEDS: ATORVASTATIN 10 MG TABLET PO SCH (10:23)
[2016-11-29] MEDS: FUROSEMIDE 40 MG/4 ML VIAL IV SCH ×2 (10:26→17:51)
[2016-11-29] MEDS: FLUCONAZOLE INJ 200 MG in PREMIX 1 EACH IV SCH (10:33)
--- NOTE | 2016-11-29 16:31 | Consultation ---
Assessment and Plan - Time spent with patient Time spent with patient: Less than 30 minutes (1) Ventilator dependence Status: Acute Assessment and plan: I recommend tracheostomy placement we will consent for surgery tomorrow we will hold anticoagulants and tube feeds at midnight today. Thank you very much for this consult and I will follow the patient intermittently throughout his time in the hospital. Current Visit: Yes (2) Respiratory failure Status: Acute Current Visit: Yes (3) Acute exacerbation of chronic obstructive pulmonary disease (COPD) Status: Acute Current Visit: Yes History of Present Illness - Data of Consult Patient: new to practice Consult date: 11/29/16 Requesting Physician: Kyle Martin - Consult Narrative Reason for consult: Ventilator dependent respiratory failure History of present illness: Mr. Melendez is a 66 year old male with chronic COPD with exacerbation requiring intubation and ventilation with multiple failed weaning attempts and failure on CPAP. Because of his chronic medical more comorbidities Dr. Martin discussed the placement of a tracheostomy tube for helping weaning the patient and or potentially more long-term treatment for his COPD if necessary. ENT is consulted for evaluation CC: Sandra Garcia MD - Home Medications and Allergies Home Medications: Home Medications Medication Instructions Recorded Confirmed Type Atorvastatin [Lipitor] 10 mg PO DAILY 05/07/16 11/19/16 History Cetirizine Tab [ZyrTEC Tab] 10 mg PO DAILY 05/07/16 11/19/16 History Diltiazem HCl [Diltiazem ER (24 360 mg PO DAILY 05/07/16 11/19/16 History hr)] Furosemide Tab [Lasix Tab] 40 mg PO DAILY 05/07/16 11/19/16 History Pantoprazole Tab [Protonix Tab] 40 mg PO DAILY 05/07/16 11/19/16 History Theophylline ER Tab (24 Hr) 400 mg PO DAILY 05/07/16 11/19/16 History Albuterol Sulfate [Ventolin HFA] 2 puff INH Q4H PRN 11/11/16 11/19/16 History Budesonide/Formoterol 160-4.5 2 puff INH BID 11/11/16 11/19/16 History [Symbicort 160-4.5] Roflumilast [Daliresp] 500 mcg PO DAILY 11/11/16 11/19/16 History Acetaminophen Tab [Tylenol Tab] 325 mg PO Q4H PRN #0 tablet 11/16/16 11/19/16 Rx Levofloxacin Tab [Levaquin Tab] 750 mg PO DAILY #7 tablet 11/16/16 11/19/16 Rx Magnesium Hydroxide Susp [Milk of 30 ml PO BID PRN #0 11/16/16 11/19/16 Rx Magnesia] Melatonin 3 mg PO BEDTIME PRN #0 tablet 11/16/16 11/19/16 Rx predniSONE [Prednisone] 20 mg PO DIRECTED 10 Days 11/16/16 11/19/16 Rx Allergies/Adverse Reactions: Allergies Allergy/AdvReac Type Severity Reaction Status Date / Time No Known Allergies Allergy Unverified 11/19/16 14:39 ROS unobtainable: due to endotracheal tube Medical,Surgical,& Family Hx - Medical History Cardio: History of: Hypertension, Cardiovascular Problems HEENT: History of: Eye Problem (eye surgery) Endocrine: History of: Dyslipidemia Rheumatology: History of;: Gout Respiratory: History of: COPD, Respiratory Problems (emphysema) - Family History Family History: Reports;: Family Cancer (mother, brother, aunt) - Social History Smoking Status: Unknown if ever smoked Frequency of Alcohol Use: None Type of Drug Use: Unknown Exam - Constitutional Vitals: Period Temp Pulse Resp BP Sys/Graf Pulse Ox Last 24 Hr 97.5 F-98.2 F 90-124 14-29 110-190/70-100 90-100 General appearance: normal weight, no acute distress - Head Head exam: Present: normal inspection, normocephalic - ENT ENT exam: Present: normal exam, normal external ear exam, normal oropharynx, other (Grossly normal exam obstructed secondary to endotracheal tube and nasogastric tube but no gross lesions or masses or areas of concern) - Neck Neck exam: Present: normal inspection - Respiratory Respiratory exam: Present: other (Currently on the ventilator struggling with CPAP setting) - Cardiovascular Cardiovascular exam: Present: tachycardia, other (Currently tachycardic with an irregular rhythm probably secondary to having difficulty on the ventilator currently) - GI/Abdominal GI/Abdominal exam: Present: soft - Neurological Exam Neurological exam: Present: other (Intubated and sedated and unable to assess) - Psychiatric Psychiatric exam: Present: other (Intubated and sedated and unable to assess) - Skin Skin exam: Present: normal color, warm Results - Labs CBC & BMP: 11/29/16 04:16 11/29/16 04:16 Lab Results: I have reviewed the past 24 hour labs Quality Measures - VTE Deep Vein Thrombosis/Pulmonary Embolism Present on Admission: No
[2016-11-29] MEDS: LEVOFLOXACIN INJ 750 MG in PREMIX 1 EACH IV SCH (17:50)
[2016-11-29] MEDS: ENOXAPARIN 40 MG/0.4 ML SYRINGE SUBCUT SCH (17:51)
[2016-11-29] MEDS: MIDAZOLAM 100 MG in SODIUM CHLORIDE 0.9% 80 ML IV SCH (20:21)
[2016-11-29] MEDS: AMINOPHYLLINE 1,000 MG in SODIUM CHLORIDE 0.9% 460 ML IV SCH (21:16)
[2016-11-30] MEDS: methylPREDNISolone SOD SUC 125 MG/2 ML VIAL IV SCH ×3 (01:40→15:58)
[2016-11-30] MEDS: PIPERACILLIN/TAZOBACTAM 3,375 MG in SODIUM CHLORIDE 0.9% 100 ML IV SCH ×3 (01:40→17:28)
[2016-11-30] MEDS: DILTIAZEM 60 MG TABLET PO SCH ×4 (01:49→20:31)
[2016-11-30] MEDS: ALBUTEROL/IPRATROPIUM 3 ML NEB RESP TX SCH ×6 (03:38→23:46)
[2016-11-30 04:52] LABS: Basophils % 0.1 % (0.0-0.8); Hematocrit 35.8 VOL% (42.0-52.0); Hemoglobin 10.6 GM/DL (14.0-18.0); Immature Granulocytes % 1.2 %; Immature Granulocytes Absolute 0.19 #; Lymphocytes # 0.1 10*3/uL (1.4-4.0); Lymphocytes % 0.7 % (21.2-54.2); Mean Corpuscular HGB Conc 29.6 GM/DL (32-36); Mean Corpuscular Hemoglobin 26 PG (27-34); Mean Corpuscular Volume 86.1 FL (87-102); Mean Platelet Volume 10.2 FL (9.6-12.0); Monocytes # 0.2 10*3/uL (0.11-0.8); Monocytes % 1.4 % (1.7-12.7); Neutrophils # 14.7 10*3/uL (1.4-7.4); Neutrophils % 96.6 % (38.7-73.9); Platelet Count 148 T/CUMM (130-400); Red Blood Count 4.16 MC/CUMM (3.8-5.5); Red Cell Distribution Width 14.9 % (9.3-17.3); White Blood Count 15.3 T/CUMM (4-12)
[2016-11-30 05:16] LABS: Calcium 8.4 MG/DL (8.5-10.1); Calcium 8.6 MG/DL (8.5-10.1); Magnesium 2.4 MG/DL (1.8-2.4); Osmolality,Calculated 290.8 MOS/KG (273-304); Osmolality,Calculated 292.8 MOS/KG (273-304); Potassium 3.5 MMOL/L (3.5-5.1)
[2016-11-30 05:17] LABS: Hypochromasia 1+; Ovalocytes Slight; Platelet Estimate Normal; Segmented Neutrophils 99 % (50-85); Total Cells Counted 100
[2016-11-30 05:18] LABS: Microcytosis Slight
[2016-11-30 05:20] LABS: Phosphorous 2.6 MG/DL (2.5-4.9); Prealbumin 33.3 MG/DL (20-40)
[2016-11-30] MEDS: INSULIN REGULAR 100 UNIT/ML SUBCUT SCH ×4 (06:09→17:39)
--- NOTE | 2016-11-30 08:10 | Pulmonology Progress Note ---
Pulmonary - PN: Subj Interval history: Patient is a 66-year-old black man with a long history of COPD along with hypertension and hyperlipidemia. He apparently was in the hospital recently with an exacerbation of his COPD. He went home and did not get any better and came back with more shortness of breath. He was found to have a small right spontaneous pneumothorax. He was on the ventilator for several days and extubated. He did get more short of breath and was on BiPAP for a while. He continues to fatigue and is back on the ventilator now. He continues to have trouble while on CPAP and he does have CO2 retention. Today we are going to proceed with a tracheostomy tube. This should help him come off the ventilator. His chest x-ray is stable but he has severe COPD. Exam (Progress Note) - Constitutional Vitals: Period Temp Pulse Resp BP Sys/Graf Pulse Ox Last 24 Hr 97.4 F-98.2 F 98-128 6-29 102-216/62-100 89-100 Exam: General appearance: no acute distress, under weight, other (Patient is awake and responding on the ventilator. He has fairly stable vital signs.) - Head Head exam: Present: normal inspection, normocephalic - Eye Eye exam: Present: EOMI. Absent: scleral icterus Pupils: Present: RAHEEL - ENT ENT exam: Present: The ET tube is in good position. - Neck Neck exam: Present: normal inspection. Absent: lymphadenopathy, thyromegaly - Respiratory Respiratory exam: Present: He has distant breath sounds with prolonged expiration and some faint wheezing still. - Cardiovascular Cardiovascular exam: Present: regular rate and rhythm. Absent: gallop, systolic murmur - GI/Abdominal GI/Abdominal exam: Present: normal bowel sounds, soft. Absent: distended, organomegaly, tenderness - Extremities Exam Extremities exam: Absent: calf tenderness, edema - Neurological Exam Neurological exam: Present: alert, he can move his extremities okay. He responds well. - Skin Skin exam: Present: warm, dry Results - Labs CBC & BMP: 11/30/16 04:15 11/30/16 04:15 - Diagnostic Findings Procedure: Chest x-ray: image reviewed by me, report reviewed by me (Chest x- ray shows severe COPD changes with mild bibasilar infiltrates.) Assessment and Plan (1) Hypertension Status: Chronic Assessment and plan: He has a stable blood pressure now. Current Visit: No Qualifiers: Hypertension type: essential hypertension Qualified Code(s): I10 - Essential (primary) hypertension (2) Pneumothorax, acute Status: Acute Assessment and plan: His right lung is expanded and there is no pneumothorax now. Current Visit: Yes (3) Acute respiratory failure Status: Acute Assessment and plan: The patient has severe COPD with respiratory failure. He has continued to have trouble with CPAP and fatigues easily. He will go for tracheostomy tube today. Current Visit: Yes (4) Acute exacerbation of chronic obstructive pulmonary disease (COPD) Status: Acute Assessment and plan: Patient has significant COPD and is being treated with steroids and bronchodilator therapy. Will continue with vigorous respiratory therapy. He should be able to come off the ventilator with a tracheostomy tube. Current Visit: Yes
--- NOTE | 2016-11-30 08:35 | General Surgery Progress Note ---
Assessment and Plan (1) Pneumothorax, acute Status: Acute Assessment and plan: Impression: Pneumothorax right side Plan: Continue chest tube to waterseal. Current Visit: Yes Subjective Patient reports: Present: no new complaints Narrative: No significant change. Remains intubated Exam - Constitutional Vitals: Period Temp Pulse Resp BP Sys/Graf Pulse Ox Last 24 Hr 97.4 F-98.2 F 98-128 6-29 102-216/62-100 89-100 - ENT Mouth exam: Present: normal external inspection - Neck Neck exam: Present: normal inspection - Respiratory Respiratory exam: Present: clear to auscultation bilaterally (no air leak) Results - Labs CBC & BMP: 11/30/16 04:15 11/30/16 04:15 Quality Measures - VTE Deep Vein Thrombosis/Pulmonary Embolism Present on Admission: No
[2016-11-30] MEDS: FUROSEMIDE 40 MG/4 ML VIAL IV SCH ×2 (08:55→15:45)
[2016-11-30] MEDS: PANTOPRAZOLE 40 MG VIAL IV SCH (08:58)
[2016-11-30] MEDS: hydroCHLOROthiazide 12.5 MG CAPSULE PO SCH (09:05)
[2016-11-30] MEDS: ATORVASTATIN 10 MG TABLET PO SCH (09:06)
[2016-11-30] MEDS: PROPOFOL 1,000 MG/100 ML BOTTLE IV SCH ×2 (09:10→15:50)
[2016-11-30] MEDS: DESITIN 4OZ/NYSTATIN 15 GRAM MIXTURE PASTE TOP SCH ×2 (09:11→20:31)
[2016-11-30] MEDS: AMINOPHYLLINE 1,000 MG in SODIUM CHLORIDE 0.9% 460 ML IV SCH (09:12)
[2016-11-30] MEDS: MIDAZOLAM 100 MG in SODIUM CHLORIDE 0.9% 80 ML IV SCH ×2 (09:12→15:01)
[2016-11-30] MEDS: BUDESONIDE/FORMOTEROL 160-4.5 INHALER 6 GM INH SCH ×2 (09:20→20:32)
[2016-11-30] MEDS: FLUCONAZOLE INJ 200 MG in PREMIX 1 EACH IV SCH (09:20)
--- NOTE | 2016-11-30 10:06 | EKG Report ---
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
--- NOTE | 2016-11-30 11:01 | EKG Report ---
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
--- NOTE | 2016-11-30 12:17 | Cardiology Progress Note ---
Rosalio Wagner Vanessa, RN, am scribing for, and in the presence of, Terry Ramos MD 12 :17. Assessment and Plan - Time spent with patient Time spent with patient: Greater than 30 minutes (1) Supraventricular tachycardia Status: Acute Assessment and plan: 66 year old black male with severe COPD and pneumothorax, required intubation. He is also hypertensive. Has had atrial tachycardia with no sustained episodes of atrial fibrillation. Currently rate controlled with Cardizem. -PAT/MAT-he still has frequent rounds of arrhythmia, with prominent RVR. This was quite refractory to CCB. He is still getting beta adrenergic agents and theophylline, and has severe underlying pulmonary disease. -Recommend to start IV amiodarone. The risk of pulmonary complications is high , but he is arrhythmia/RVR limits his management. -We will start weaning Cardizem, if hypotension or bradycardia limits amiodarone. Current Visit: Yes (2) Acute exacerbation of chronic obstructive pulmonary disease (COPD) Status: Acute Current Visit: Yes (3) Pneumothorax, acute Status: Acute Current Visit: Yes (4) Hypertension Status: Chronic Current Visit: No Qualifiers: Hypertension type: essential hypertension Qualified Code(s): I10 - Essential (primary) hypertension Cardiology - PN: Subj Interval history: He still has frequent runs of multifocal atrial tachycardia, with prominent RVR , despite increased Cardizem. Still intubated, tracheostomy is planned today . Exam (Progress Note) - Constitutional Vitals: Period Temp Pulse Resp BP Sys/Graf Pulse Ox Last 24 Hr 97.4 F-98.2 F 98-128 6-29 102-216/62-100 89-100 General appearance: normal weight - Head Head exam: Present: normal inspection - Eye Eye exam: Absent: conjunctival injection Pupils: Absent: dilated - ENT ENT exam: Present: normal external ear exam - Neck Neck exam: Present: normal inspection, other (Intubated) - Respiratory Respiratory exam: Present: decreased breath sounds. Absent: wheezes - Cardiovascular Cardiovascular exam: Present: irregular rhythm, systolic murmur, tachycardia - GI/Abdominal GI/Abdominal exam: Present: normal bowel sounds - Extremities Exam Extremities exam: Present: normal inspection, normal capillary refill. Absent: edema - Neurological Exam Neurological exam: Present: alert, other (Opens eyes) - Skin Skin exam: Present: normal color, warm. Absent: cyanosis Result/EKG - Labs CBC & BMP: 11/30/16 04:15 11/30/16 04:15 Lab Results: I have reviewed the past 24 hour labs Labs: Laboratory Results - last 24 hr 11/29/16 11/29/16 11/29/16 09:04 11:49 17:55 WBC RBC Hgb Hct MCV MCH MCHC RDW Plt Count MPV Neut % (Auto) Lymph % (Auto) [place] % (Auto) Eos % (Auto) Baso % (Auto) Neut # (Auto) Lymph # (Auto) [place] # (Auto) Eos # (Auto) Baso # (Auto) Total Counted Immature Gran % Nucleated RBC % Immature Gran # Segmented Neutrophils Monocytes Nucleated RBCs # Platelet Estimate Hypochromasia Microcytosis Ovalocytes Morphology Comment ABG pH 7.384 ABG pCO2 66.7 H ABG pO2 94.6 ABG HCO3 35.6 H ABG Total CO2 35.8 H ABG O2 Saturation 97.5 ABG Base Excess 11.9 H FiO2 40.00 Sodium Potassium Chloride Carbon Dioxide Anion Gap BUN Creatinine GFR Calculation BUN/Creatinine Ratio Glucose POC Glucose 182 H 167 H Calculated Osmolality Calcium Phosphorus Magnesium Prealbumin 11/30/16 11/30/16 11/30/16 00:13 04:15 04:15 WBC 15.3 H RBC 4.16 Hgb 10.6 L Hct 35.8 L MCV 86.1 L MCH 26 L MCHC 29.6 L RDW 14.9 Plt Count 148 MPV 10.2 Neut % (Auto) 96.6 H Lymph % (Auto) 0.7 L [place] % (Auto) 1.4 L Eos % (Auto) 0.0 Baso % (Auto) 0.1 Neut # (Auto) 14.7 H Lymph # (Auto) 0.1 L [place] # (Auto) 0.2 Eos # (Auto) 0.0 Baso # (Auto) 0.0 Total Counted 100 Immature Gran % 1.2 Nucleated RBC % 0.0 Immature Gran # 0.19 Segmented Neutrophils 99 H Monocytes 1 L Nucleated RBCs # 0.00 Platelet Estimate Normal Hypochromasia 1+ Microcytosis Slight Ovalocytes Slight Morphology Comment ABG pH ABG pCO2 ABG pO2 ABG HCO3 ABG Total CO2 ABG O2 Saturation ABG Base Excess FiO2 Sodium 144 Potassium 3.5 Chloride 94 L Carbon Dioxide 44 H Anion Gap 9.5 BUN 27 H Creatinine 0.40 L GFR Calculation 153 BUN/Creatinine Ratio 67.00 H Glucose 126 H POC Glucose 169 H Calculated Osmolality 292.8 Calcium 8.6 Phosphorus Magnesium 2.4 Prealbumin 11/30/16 11/30/16 11/30/16 04:15 04:15 05:53 WBC RBC Hgb Hct MCV MCH MCHC RDW Plt Count MPV Neut % (Auto) Lymph % (Auto) [place] % (Auto) Eos % (Auto) Baso % (Auto) Neut # (Auto) Lymph # (Auto) [place] # (Auto) Eos # (Auto) Baso # (Auto) Total Counted Immature Gran % Nucleated RBC % Immature Gran # Segmented Neutrophils Monocytes Nucleated RBCs # Platelet Estimate Hypochromasia Microcytosis Ovalocytes Morphology Comment ABG pH ABG pCO2 ABG pO2 ABG HCO3 ABG Total CO2 ABG O2 Saturation ABG Base Excess FiO2 Sodium 144 Potassium 3.5 Chloride 94 L Carbon Dioxide 44 H Anion Gap 9.5 BUN 25 H Creatinine 0.40 L GFR Calculation 153 BUN/Creatinine Ratio 62.00 H Glucose 125 H POC Glucose 144 H Calculated Osmolality 290.8 Calcium 8.4 L Phosphorus 2.6 Magnesium Prealbumin 33.3 - Diagnostic Findings Procedure: Chest x-ray: image reviewed by me, report reviewed by me - EKG EKG results: interpreted by me EKG shows: tachycardia Quality Measures - VTE Deep Vein Thrombosis/Pulmonary Embolism Present on Admission: Richard Paige Attila, MD, personally performed the services described in this documentation, ascribed by Loren Santamaria RN in my presence, and it is both accurate and complete .
[2016-11-30] MEDS ORDERED: AMIODARONE INJ 450 MG in DEXTROSE 5% 241 ML IV SCH (12:30)
--- NOTE | 2016-11-30 14:03 | Hospitalist Progress Note ---
Assessment and Plan (1) Acute respiratory failure Status: Acute Assessment and plan: Patient has a history of COPD and a bronchospastic disease.CXR done yesterday showed a small right sided pneumothorax and he currently has a chest tube placed. Microbiology. On 11/14/2016 the patient's sputum grew Zoë. Gram stain from 11/19/2016 shows less than 25 white blood cells per low power field. There are few gram-positive cocci and a few yeast. Microbiology 11/19/16- Sputum- no growth 11/21/2016 Chest tube still has small leak. Patient looks comfortable on the vent. He was awake. Dopplers- negative for DVT. 11/22/2016 Patient was re intubated yesterday because he was having problems with his ET. Chest tube to sunction still in place.CXR showed no significant change 11/23/2016 Doing well on the vent, may be extubated today.Chest tube is to gravity. He may be extubated today 11/24/2016 Patient was extubated yesterday but he had some trouble breathing overnight and ended up on a BIPAP. This am, he looked fairly comfortable but was still wheezing a little bit.His chest tube has been clamped.Sputum grew Zoë Albicans 11/25/2016 Patient was re-intubated at overnight due to laboured breathing and hypoxia. .His chest tube was back to suction. No obvious pneumothorax seen on today's chest x-ray. Small air leak present. CXR showed worsening infiltrate or atelectasis. 11/26/2016 Patient looks comfortable on the vent, he was awake and had his chest tube to suction. 11/27/2016 Chest tube is connected to water seal. He is doing fairly well on CPAP trials 11/28/2016 He had a bronchoscopy this am. His chest tube is still to water seal. He is tolerating CPAP trials. 11/29/2016 Patient seen on the vent with his chest tube in water seal. He had a therapeutic bronchoscopy yesterday and some thick secretions were cleared.He is tolerating CPAP trials. 11/30/2016 He continues to fatigue and has trouble while on CPAP and he does have CO2 retention. Pulm wants him to have a tracheostomy tube. Chest tube to water seal. Plan continue IV Diflucan, antibiotics, vent support, chest tube continue Pulmonology and CT surgery's recommendations Current Visit: Yes (2) Acute exacerbation of chronic obstructive pulmonary disease (COPD) Status: Acute Assessment and plan: patient has severe lung disease. see treatment plan above Current Visit: Yes (3) Hypertension Status: Chronic Assessment and plan: better controlled. Continue with current regime. Current Visit: No Qualifiers: Hypertension type: essential hypertension Qualified Code(s): I10 - Essential (primary) hypertension (4) Dyslipidemia Status: Inactive Assessment and plan: Lipids-noted, continue with statins Current Visit: No (5) Hyperglycemia Status: Acute Assessment and plan: due to ? steroids. Plan HA1c level-7.0. Continue with SSC insulin and accu checks Current Visit: Yes (6) Hypokalemia Status: Acute Assessment and plan: repleted Current Visit: Yes (7) Supraventricular tachycardia Status: Acute Assessment and plan: Cardiology is following.Echo revealed normal left ventricular cavity size. Mild concentric left ventricular hypertrophy with diastolic dysfunction. left ventricular EF-60-65% Current Visit: Yes (8) Pneumothorax, acute Status: Acute Assessment and plan: s/p chest tube to water seal. Plan Follow Pulm and CT surgery's recommendations Current Visit: Yes (9) Hematuria Status: Acute Assessment and plan: consult urology Bladder scan ? hold Lovenox, defer to urology Current Visit: Yes Hospitalist: Subjective Interval history: Patient seen on the vent.He continues to fatigue and has trouble while on CPAP and he does have CO2 retention. Pulm wants him to have a tracheostomy tube. Patient noticed to have hematuria. Exam - Constitutional Vitals: Period Temp Pulse Resp BP Sys/Graf Pulse Ox Last 24 Hr 97 F-97.6 F 98-134 6-29 102-216/62-100 88-100 General appearance: no acute distress, other (awake on the vent) - Respiratory Respiratory exam: Present: decreased breath sounds - Cardiovascular Cardiovascular exam: Present: regular rate and rhythm - GI/Abdominal GI/Abdominal exam: Present: normal bowel sounds - Extremities Exam Extremities exam: Present: edema - Neurological Exam Neurological exam: Present: alert Results - Labs CBC & BMP: 11/30/16 04:15 11/30/16 04:15 Lab Results: I have reviewed the past 24 hour labs Quality Measures - VTE Deep Vein Thrombosis/Pulmonary Embolism Present on Admission: No
[2016-11-30] MEDS ORDERED: SEVOFLURANE 1 UNIT/15 MINUTE INH ONE (14:34)
--- NOTE | 2016-11-30 15:06 | Ultrasound Report ---
Exam: US renal Bilateral Date: 11/30/2016 2:12 PM Indication: Hematuria Comparison: None Findings: Right kidney. 10.1 x 4.4 x 4.8 cm. No hydronephrosis perinephric fluid collections or focal mass Left kidney. 9.6 x 5.2 x 5.5 cm. No hydronephrosis perinephric fluid collections or focal mass Armendariz catheter is present in the bladder. Impression: 1. Armendariz catheter in the bladder 2. No obstructive uropathy or stones present or mass lesions Ultrasound images were stored and captured PROCEDURE INTERPRETED AT [facility] DEPARTMENT OF RADIOLOGY Final Report Signed by: Dr. Blue Lane
[2016-11-30] MEDS: NOREPINEPHRINE 8 MG in SODIUM CHLORIDE 0.9% 242 ML IV SCH (15:49)
[2016-11-30] MEDS: LEVOFLOXACIN INJ 750 MG in PREMIX 1 EACH IV SCH (15:56)
[2016-11-30] MEDS: ENOXAPARIN 40 MG/0.4 ML SYRINGE SUBCUT SCH (15:59)
[2016-11-30] MEDS: AMIODARONE INJ 450 MG in DEXTROSE 5% 241 ML IV SCH ×2 (18:57→22:59)
[2016-12-01] MEDS: INSULIN REGULAR 100 UNIT/ML SUBCUT SCH ×4 (01:03→17:39)
[2016-12-01] MEDS: methylPREDNISolone SOD SUC 125 MG/2 ML VIAL IV SCH ×3 (01:04→17:22)
[2016-12-01] MEDS: PIPERACILLIN/TAZOBACTAM 3,375 MG in SODIUM CHLORIDE 0.9% 100 ML IV SCH ×3 (01:04→17:54)
[2016-12-01] MEDS: DILTIAZEM 60 MG TABLET PO SCH ×4 (02:10→20:27)
[2016-12-01] MEDS: PROPOFOL 1,000 MG/100 ML BOTTLE IV SCH ×3 (02:14→20:26)
[2016-12-01] MEDS: ALBUTEROL/IPRATROPIUM 3 ML NEB RESP TX SCH ×6 (03:31→23:10)
[2016-12-01 03:39] LABS: ABG Base Excess 20.9 MMOL/L (-2.5-2.5); ABG HCO3 45.5 MMOL/L (20-26); ABG PCO2 56.6 MM HG (35-48); ABG PH 7.532 (7.35-7.45); ABG PO2 65.7 MM HG (80-95); ABG TCO2 42.4 MMOL/L (23-27); Allen Test Positive; Pt O2 Delivery Device Ventilator
[2016-12-01] MEDS: AMINOPHYLLINE 1,000 MG in SODIUM CHLORIDE 0.9% 460 ML IV SCH ×2 (04:44→08:23)
[2016-12-01 04:51] LABS: Basophils % 0.1 % (0.0-0.8); Hematocrit 34.9 VOL% (42.0-52.0); Hemoglobin 10.7 GM/DL (14.0-18.0); Immature Granulocytes % 0.9 %; Immature Granulocytes Absolute 0.13 #; Lymphocytes # 0.1 10*3/uL (1.4-4.0); Lymphocytes % 0.7 % (21.2-54.2); Mean Corpuscular HGB Conc 30.7 GM/DL (32-36); Mean Corpuscular Hemoglobin 26 PG (27-34); Mean Corpuscular Volume 84.1 FL (87-102); Mean Platelet Volume 10.6 FL (9.6-12.0); Monocytes # 0.3 10*3/uL (0.11-0.8); Neutrophils # 14.7 10*3/uL (1.4-7.4); Neutrophils % 96.3 % (38.7-73.9); Platelet Count 149 T/CUMM (130-400); Red Blood Count 4.15 MC/CUMM (3.8-5.5); Red Cell Distribution Width 14.9 % (9.3-17.3); White Blood Count 15.2 T/CUMM (4-12)
[2016-12-01 05:13] LABS: Hypochromasia 2+; Platelet Estimate Normal; Segmented Neutrophils 96 % (50-85); Total Cells Counted 100
[2016-12-01 05:14] LABS: Microcytosis Slight
[2016-12-01 05:19] LABS: Blood Urea Nitrogen 30 MG/DL (7-18); Calcium 8.4 MG/DL (8.5-10.1); Glucose 200 MG/DL (74-106); Osmolality,Calculated 290.4 MOS/KG (273-304); Potassium 2.8 MMOL/L (3.5-5.1); Sodium 140 MMOL/L (136-145)
[2016-12-01 05:20] LABS: Calcium 8.4 MG/DL (8.5-10.1); Magnesium 2.3 MG/DL (1.8-2.4); Osmolality,Calculated 290.4 MOS/KG (273-304); Potassium 2.9 MMOL/L (3.5-5.1)
--- NOTE | 2016-12-01 07:12 | Pulmonology Progress Note ---
Pulmonary - PN: Subj Interval history: Patient is a 66-year-old black man with a long history of COPD along with hypertension and hyperlipidemia. He apparently was in the hospital recently with an exacerbation of his COPD. He went home and did not get any better and came back with more shortness of breath. He was found to have a small right spontaneous pneumothorax. He was on the ventilator for several days and extubated. He did get more short of breath and was on BiPAP for a while. He continues to fatigue and is back on the ventilator now. He continues to have trouble while on CPAP and he does have CO2 retention. Yesterday he got a tracheostomy tube placed. He has been fairly stable through the night. He still gets anxious at times. Exam (Progress Note) - Constitutional Vitals: Period Temp Pulse Resp BP Sys/Graf Pulse Ox Last 24 Hr 96 F-97.1 F 86-134 7-35 104-174/60-99 88-100 Exam: General appearance: no acute distress, under weight, other (Patient is awake and responding on the ventilator. He has fairly stable vital signs.) - Head Head exam: Present: normal inspection, normocephalic - Eye Eye exam: Present: EOMI. Absent: scleral icterus Pupils: Present: RAHEEL - ENT ENT exam: Present: Unremarkable - Neck Neck exam: Present: The tracheostomy tube is in good position. - Respiratory Respiratory exam: Present: He has distant breath sounds with prolonged expiration and some faint wheezing still. He still has fair breath sounds bilaterally. - Cardiovascular Cardiovascular exam: Present: regular rate and rhythm. Absent: gallop, systolic murmur - GI/Abdominal GI/Abdominal exam: Present: normal bowel sounds, soft. Absent: distended, organomegaly, tenderness - Extremities Exam Extremities exam: Absent: calf tenderness, edema - Neurological Exam Neurological exam: Present: alert, he can move his extremities okay. He responds well. - Skin Skin exam: Present: warm, dry Results - Labs CBC & BMP: 12/01/16 04:09 12/01/16 04:09 Labs: His PO2 was 65 with a PCO2 of 56 and a pH of 7.53 - Diagnostic Findings Procedure: Chest x-ray: image reviewed by me, report reviewed by me (Chest x- ray shows COPD changes and no pneumothorax.) Assessment and Plan (1) Hypertension Status: Chronic Assessment and plan: He has a stable blood pressure now. His blood pressure does go up at times. Current Visit: No Qualifiers: Hypertension type: essential hypertension Qualified Code(s): I10 - Essential (primary) hypertension (2) Pneumothorax, acute Status: Acute Assessment and plan: His right lung is expanded and there is no pneumothorax now. Current Visit: Yes (3) Acute respiratory failure Status: Acute Assessment and plan: The patient has severe COPD with respiratory failure. He has continued to have trouble with CPAP and fatigues easily. He got his tracheostomy tube placed yesterday. Will adjust his ventilator. Current Visit: Yes (4) Acute exacerbation of chronic obstructive pulmonary disease (COPD) Status: Acute Assessment and plan: Patient has significant COPD and is being treated with steroids and bronchodilator therapy. Will continue with vigorous respiratory therapy. He should be able to come off the ventilator with a tracheostomy tube. We will continue weaning trials. Current Visit: Yes
--- NOTE | 2016-12-01 07:44 | XRay Report ---
History ventilator management Comparison 11/29/2016 There is been interval removal of the ET tube and placement of a tracheostomy. NG tube traverses the chest Right chest tube remains. Tubes overlie the right apex without a discrete pneumothorax seen. Rib shadows and markings at the right base grossly unchanged Hyperlucency in the right upper chest again seen. Pleural thickening left apex again seen Mild patchy and reticular bilateral pulmonary opacities are similar on the prior study. Heart remains normal in size Impression: Interval tracheostomy otherwise no interval change described above PROCEDURE INTERPRETED AT [facility] DEPARTMENT OF RADIOLOGY Final Report Signed by: Dr. Cierra Prakash
[2016-12-01] MEDS: PANTOPRAZOLE 40 MG VIAL IV SCH (08:15)
[2016-12-01] MEDS: FLUCONAZOLE INJ 200 MG in PREMIX 1 EACH IV SCH (08:21)
[2016-12-01] MEDS: hydroCHLOROthiazide 12.5 MG CAPSULE PO SCH (08:22)
[2016-12-01] MEDS: ATORVASTATIN 10 MG TABLET PO SCH (08:22)
[2016-12-01] MEDS: DESITIN 4OZ/NYSTATIN 15 GRAM MIXTURE PASTE TOP SCH ×2 (08:23→20:27)
[2016-12-01] MEDS: POTASSIUM CHLORIDE RIDER 10 MEQ in PREMIX 1 EACH IV PRN ×9 (08:56→21:42)
[2016-12-01] MEDS ORDERED: FUROSEMIDE 40 MG/4 ML VIAL IV SCH (09:00)
[2016-12-01] MEDS: MIDAZOLAM 100 MG in SODIUM CHLORIDE 0.9% 80 ML IV SCH (09:35)
[2016-12-01] MEDS: BUDESONIDE/FORMOTEROL 160-4.5 INHALER 6 GM INH SCH ×2 (09:35→21:42)
--- NOTE | 2016-12-01 11:17 | Cardiology Progress Note ---
Rosalio Wagner Vanessa, RN, am scribing for, and in the presence of, Terry Ramos MD 11 :14. Assessment and Plan - Time spent with patient Time spent with patient: Greater than 30 minutes (1) Supraventricular tachycardia Status: Acute Assessment and plan: 66 year old black male with severe COPD and pneumothorax, required intubation. He is also hypertensive. Has had atrial tachycardia with no sustained episodes of atrial fibrillation. Currently rate controlled with Cardizem. Now s/p tracheotomy. -PAT/MAT-still with frequent arrhythmia, now less RVR. Continue amiodarone, Cardizem. Plan to switch to po amiodarone, if remains stable. High pulmonary risk, but the arrhythmia was refractory to every other measure -Decrease Lasix to 40 mg daily p.o. He still has some peripheral edema, but hypokalemia may contribute to high arrhythmia burden. Replete potassium. He does not have significant cardiomyopathy. Current Visit: Yes (2) Acute exacerbation of chronic obstructive pulmonary disease (COPD) Status: Acute Current Visit: Yes (3) Pneumothorax, acute Status: Acute Current Visit: Yes (4) Hypertension Status: Chronic Current Visit: No Qualifiers: Hypertension type: essential hypertension Qualified Code(s): I10 - Essential (primary) hypertension Cardiology - PN: Subj Interval history: Primary [employer]: NONE S/p tracheotomy yesterday to assist with weaning of mechanical ventilation. BP stable. Continues to have atrial tach, rate somewhat more controlled today. Severely hypokalemic at 2.8 today. Repleted per PRN IV protocol. Exam (Progress Note) - Constitutional Vitals: Period Temp Pulse Resp BP Sys/Graf Pulse Ox Last 24 Hr 96 F-97.1 F 86-134 8-35 104-174/60-99 88-100 General appearance: normal weight - Head Head exam: Present: normal inspection, normocephalic - Eye Eye exam: Absent: conjunctival injection Pupils: Absent: dilated - ENT ENT exam: Present: normal external ear exam - Neck Neck exam: Present: other (tracheostomy) - Respiratory Respiratory exam: Present: decreased breath sounds. Absent: prolonged expiratory phase - Cardiovascular Cardiovascular exam: Present: irregular rhythm, systolic murmur, tachycardia - GI/Abdominal GI/Abdominal exam: Present: hypoactive bowel sounds. Absent: distended - Extremities Exam Extremities exam: Present: normal inspection, normal capillary refill, edema (1+ ) - Neurological Exam Neurological exam: Present: alert, oriented X3 - Psychiatric Psychiatric exam: Present: normal affect - Skin Skin exam: Present: normal color, warm. Absent: cyanosis Result/EKG - Labs CBC & BMP: 12/01/16 04:09 12/01/16 04:09 Lab Results: I have reviewed the past 24 hour labs Labs: Laboratory Results - last 24 hr 11/30/16 11/30/16 12/01/16 11:23 17:33 00:20 WBC RBC Hgb Hct MCV MCH MCHC RDW Plt Count MPV Neut % (Auto) Lymph % (Auto) [place] % (Auto) Eos % (Auto) Baso % (Auto) Neut # (Auto) Lymph # (Auto) [place] # (Auto) Eos # (Auto) Baso # (Auto) Total Counted Immature Gran % Nucleated RBC % Immature Gran # Segmented Neutrophils Monocytes Nucleated RBCs # Platelet Estimate Hypochromasia Microcytosis Morphology Comment ABG pH ABG pCO2 ABG pO2 ABG HCO3 ABG Total CO2 ABG O2 Saturation ABG Base Excess FiO2 Sodium Potassium Chloride Carbon Dioxide Anion Gap BUN Creatinine GFR Calculation BUN/Creatinine Ratio Glucose POC Glucose 135 H 114 H 240 H Calculated Osmolality Calcium Magnesium 12/01/16 12/01/16 12/01/16 03:24 04:09 04:09 WBC 15.2 H RBC 4.15 Hgb 10.7 L Hct 34.9 L MCV 84.1 L MCH 26 L MCHC 30.7 L RDW 14.9 Plt Count 149 MPV 10.6 Neut % (Auto) 96.3 H Lymph % (Auto) 0.7 L [place] % (Auto) 2.0 Eos % (Auto) 0.0 Baso % (Auto) 0.1 Neut # (Auto) 14.7 H Lymph # (Auto) 0.1 L [place] # (Auto) 0.3 Eos # (Auto) 0.0 Baso # (Auto) 0.0 Total Counted 100 Immature Gran % 0.9 Nucleated RBC % 0.0 Immature Gran # 0.13 Segmented Neutrophils 96 H Monocytes 4 Nucleated RBCs # 0.00 Platelet Estimate Normal Hypochromasia 2+ Microcytosis Slight Morphology Comment ABG pH 7.532 H ABG pCO2 56.6 H ABG pO2 65.7 L ABG HCO3 45.5 H ABG Total CO2 42.4 H ABG O2 Saturation 94.0 L ABG Base Excess 20.9 H FiO2 40.00 Sodium 140 Potassium 2.9 L Chloride 88 L Carbon Dioxide 43 H Anion Gap 11.9 BUN 30 H Creatinine 0.60 L GFR Calculation 128 BUN/Creatinine Ratio 50.00 H Glucose 200 H POC Glucose Calculated Osmolality 290.4 Calcium 8.4 L Magnesium 2.3 12/01/16 12/01/16 04:09 05:54 WBC RBC Hgb Hct MCV MCH MCHC RDW Plt Count MPV Neut % (Auto) Lymph % (Auto) [place] % (Auto) Eos % (Auto) Baso % (Auto) Neut # (Auto) Lymph # (Auto) [place] # (Auto) Eos # (Auto) Baso # (Auto) Total Counted Immature Gran % Nucleated RBC % Immature Gran # Segmented Neutrophils Monocytes Nucleated RBCs # Platelet Estimate Hypochromasia Microcytosis Morphology Comment ABG pH ABG pCO2 ABG pO2 ABG HCO3 ABG Total CO2 ABG O2 Saturation ABG Base Excess FiO2 Sodium 140 Potassium 2.8 L Chloride 88 L Carbon Dioxide 45 H Anion Gap BUN 30 H Creatinine 0.60 L GFR Calculation 128 BUN/Creatinine Ratio 50.00 H Glucose 200 H POC Glucose 199 H Calculated Osmolality 290.4 Calcium 8.4 L Magnesium - Diagnostic Findings Procedure: Chest x-ray: image reviewed by me, report reviewed by me (12/01/16: mild patchy bilateral pulmonary opacities with no significant change from previous study 11/30) - EKG EKG results: interpreted by me EKG shows: tachycardia Quality Measures - VTE Deep Vein Thrombosis/Pulmonary Embolism Present on Admission: No I, Terry Ramos MD, personally performed the services described in this documentation, ascribed by Loren Santamaria RN in my presence, and it is both accurate and complete .
--- NOTE | 2016-12-01 12:28 | Hospitalist Progress Note ---
Assessment and Plan - Time spent with patient Time spent with patient: Greater than 30 minutes (Critical Time:10am-11.45am) (1) Acute respiratory failure Status: Acute Assessment and plan: Patient has a history of COPD and a bronchospastic disease.CXR done yesterday showed a small right sided pneumothorax and he currently has a chest tube placed. Microbiology. On 11/14/2016 the patient's sputum grew Zoë. Gram stain from 11/19/2016 shows less than 25 white blood cells per low power field. There are few gram-positive cocci and a few yeast. Microbiology 11/19/16- Sputum- no growth 11/21/2016 Chest tube still has small leak. Patient looks comfortable on the vent. He was awake. Dopplers- negative for DVT. 11/22/2016 Patient was re intubated yesterday because he was having problems with his ET. Chest tube to sunction still in place.CXR showed no significant change 11/23/2016 Doing well on the vent, may be extubated today.Chest tube is to gravity. He may be extubated today 11/24/2016 Patient was extubated yesterday but he had some trouble breathing overnight and ended up on a BIPAP. This am, he looked fairly comfortable but was still wheezing a little bit.His chest tube has been clamped.Sputum grew Zoë Albicans 11/25/2016 Patient was re-intubated at overnight due to laboured breathing and hypoxia. .His chest tube was back to suction. No obvious pneumothorax seen on today's chest x-ray. Small air leak present. CXR showed worsening infiltrate or atelectasis. 11/26/2016 Patient looks comfortable on the vent, he was awake and had his chest tube to suction. 11/27/2016 Chest tube is connected to water seal. He is doing fairly well on CPAP trials 11/28/2016 He had a bronchoscopy this am. His chest tube is still to water seal. He is tolerating CPAP trials. 11/29/2016 Patient seen on the vent with his chest tube in water seal. He had a therapeutic bronchoscopy yesterday and some thick secretions were cleared.He is tolerating CPAP trials. 11/30/2016 He continues to fatigue and has trouble while on CPAP and he does have CO2 retention. Pulm wants him to have a tracheostomy tube. Chest tube to water seal. 12/01/2016 There was blood gushing out of the trach tube, this has been controlled with pressure. Plan Hold Lovenox CBC in am continue IV Diflucan, antibiotics, vent support, chest tube continue Pulmonology and CT surgery's recommendations Current Visit: Yes (2) Acute exacerbation of chronic obstructive pulmonary disease (COPD) Status: Acute Assessment and plan: patient has severe lung disease. see treatment plan above Current Visit: Yes (3) Hypertension Status: Chronic Assessment and plan: better controlled. Continue with current regime. Current Visit: No Qualifiers: Hypertension type: essential hypertension Qualified Code(s): I10 - Essential (primary) hypertension (4) Dyslipidemia Status: Inactive Assessment and plan: Lipids-noted, continue with statins Current Visit: No (5) Hyperglycemia Status: Acute Assessment and plan: due to ? steroids. Plan HA1c level-7.0. Continue with SSC insulin and accu checks Current Visit: Yes (6) Hypokalemia Status: Acute Assessment and plan: we will replete, bmp in am Current Visit: Yes (7) Supraventricular tachycardia Status: Acute Assessment and plan: Echo revealed normal left ventricular cavity size. Mild concentric left ventricular hypertrophy with diastolic dysfunction. left ventricular EF-60-65% .He is on Amiodarone ggt. Follow cardiology's recommendations Current Visit: Yes (8) Pneumothorax, acute Status: Acute Assessment and plan: s/p chest tube to water seal. Plan Follow Pulm and CT surgery's recommendations Current Visit: Yes (9) Hematuria Status: Acute Assessment and plan: This has cleared up, no need for Urology consult at this time.Renal USS was unremarkable. plan Hold Lovenox cbc in am Current Visit: Yes Hospitalist: Subjective Interval history: Patient seen. He had a tracheostomy placed yesterday. He had some blood gushing out of his trach tube, pressure has been applied, lovenox has been held.He was also started on Amiodarone ggt yesterday for tachyarrhymias and his rate is currently stable. Exam - Constitutional Vitals: Period Temp Pulse Resp BP Sys/Graf Pulse Ox Last 24 Hr 96 F-97 F 84-132 10-35 104-168/59-99 89-100 General appearance: no acute distress, other (trach connected to vent, chest tube to water seal) - Respiratory Respiratory exam: Present: decreased breath sounds - Cardiovascular Cardiovascular exam: Present: regular rate and rhythm - GI/Abdominal GI/Abdominal exam: Present: normal bowel sounds - Extremities Exam Extremities exam: Present: edema Results - Labs CBC & BMP: 12/01/16 04:09 12/01/16 04:09 Lab Results: I have reviewed the past 24 hour labs Quality Measures - VTE Deep Vein Thrombosis/Pulmonary Embolism Present on Admission: No
--- NOTE | 2016-12-01 12:50 | General Surgery Progress Note ---
Assessment and Plan (1) Pneumothorax, acute Status: Acute Assessment and plan: Impression: Pneumothorax right side Plan: We'll remove chest tube tomorrow if he continues on IMV and does not require any further positive pressure ventilation. Current Visit: Yes Subjective Patient reports: Present: no new complaints Narrative: Status post post-tracheostomy. He was on assist control until this morning. He 's been tolerating I&D without any problems. Exam - Constitutional Vitals: Period Temp Pulse Resp BP Sys/Graf Pulse Ox Last 24 Hr 96 F-97 F 84-132 10-35 104-168/59-99 89-100 - Head Head exam: Present: normocephalic - Respiratory Respiratory exam: Present: clear to auscultation bilaterally (no air leak in the chest tube) Results - Labs CBC & BMP: 12/01/16 04:09 12/01/16 04:09 Quality Measures - VTE Deep Vein Thrombosis/Pulmonary Embolism Present on Admission: No
[2016-12-01] MEDS: AMIODARONE INJ 450 MG in DEXTROSE 5% 241 ML IV SCH (13:28)
[2016-12-01] MEDS: LEVOFLOXACIN INJ 750 MG in PREMIX 1 EACH IV SCH (16:26)
[2016-12-02] MEDS: PIPERACILLIN/TAZOBACTAM 3,375 MG in SODIUM CHLORIDE 0.9% 100 ML IV SCH ×3 (01:07→17:34)
[2016-12-02] MEDS: methylPREDNISolone SOD SUC 125 MG/2 ML VIAL IV SCH ×3 (01:07→17:30)
[2016-12-02] MEDS: INSULIN REGULAR 100 UNIT/ML SUBCUT SCH ×4 (01:12→17:56)
[2016-12-02 02:23] LABS: Basophils % 0.1 % (0.0-0.8); Hematocrit 29.8 VOL% (42.0-52.0); Hemoglobin 9.4 GM/DL (14.0-18.0); Immature Granulocytes % 1.1 %; Lymphocytes # 0.1 10*3/uL (1.4-4.0); Lymphocytes % 0.7 % (21.2-54.2); Mean Corpuscular HGB Conc 31.5 GM/DL (32-36); Mean Corpuscular Hemoglobin 26 PG (27-34); Mean Corpuscular Volume 82.5 FL (87-102); Mean Platelet Volume 11.1 FL (9.6-12.0); Monocytes # 0.4 10*3/uL (0.11-0.8); Monocytes % 2.3 % (1.7-12.7); Neutrophils # 16.9 10*3/uL (1.4-7.4); Neutrophils % 95.8 % (38.7-73.9); Platelet Count 144 T/CUMM (130-400); Red Blood Count 3.61 MC/CUMM (3.8-5.5); Red Cell Distribution Width 15.3 % (9.3-17.3); White Blood Count 17.7 T/CUMM (4-12)
[2016-12-02] MEDS: DILTIAZEM 60 MG TABLET PO SCH ×4 (02:39→20:35)
[2016-12-02 02:57] LABS: Segmented Neutrophils 98 % (50-85); Total Cells Counted 100
[2016-12-02 02:58] LABS: Hypochromasia Slight; Platelet Estimate Adequate
[2016-12-02 03:10] LABS: ABG Base Excess 16.1 MMOL/L (-2.5-2.5); ABG HCO3 41.5 MMOL/L (20-26); ABG Oxygen Saturation 95.6 % (95-100); ABG PCO2 55.5 MM HG (35-48); ABG PH 7.492 (7.35-7.45); ABG PO2 79.2 MM HG (80-95); ABG TCO2 43.2 MMOL/L (23-27); Allen Test Positive; Pt O2 Delivery Device Ventilator
[2016-12-02] MEDS: ALBUTEROL/IPRATROPIUM 3 ML NEB RESP TX SCH ×6 (03:15→23:47)
[2016-12-02 03:27] LABS: Calcium 8.1 MG/DL (8.5-10.1); Magnesium 2.2 MG/DL (1.8-2.4); Potassium 3.2 MMOL/L (3.5-5.1)
[2016-12-02] MEDS: POTASSIUM CHLORIDE RIDER 10 MEQ in PREMIX 1 EACH IV PRN ×4 (04:27→11:19)
[2016-12-02] MEDS: MIDAZOLAM 100 MG in SODIUM CHLORIDE 0.9% 80 ML IV SCH ×2 (04:27→10:44)
[2016-12-02] MEDS: AMIODARONE INJ 450 MG in DEXTROSE 5% 241 ML IV SCH (06:10)
[2016-12-02] MEDS: PROPOFOL 1,000 MG/100 ML BOTTLE IV SCH ×2 (07:04→10:00)
--- NOTE | 2016-12-02 07:22 | Pulmonology Progress Note ---
Pulmonary - PN: Subj Interval history: Patient is a 66-year-old black man with a long history of COPD along with hypertension and hyperlipidemia. He apparently was in the hospital recently with an exacerbation of his COPD. He went home and did not get any better and came back with more shortness of breath. He was found to have a small right spontaneous pneumothorax. He was on the ventilator for several days and extubated. He did get more short of breath and was on BiPAP for a while. He continues to fatigue and is back on the ventilator now. He continues to have trouble while on CPAP and he does have CO2 retention. He got his tracheostomy tube placed and he is doing relatively well. He still can go that long on CPAP. He is having some mild bleeding around his tracheostomy tube. Otherwise he is stable. Exam (Progress Note) - Constitutional Vitals: Period Temp Pulse Resp BP Sys/Graf Pulse Ox Last 24 Hr 96.9 F-97.6 F 81-115 10-25 105-149/59-99 90-100 Exam: General appearance: no acute distress, under weight, other (Patient is awake and responding on the ventilator. He has fairly stable vital signs.) - Head Head exam: Present: normal inspection, normocephalic - Eye Eye exam: Present: EOMI. Absent: scleral icterus Pupils: Present: RAHEEL - ENT ENT exam: Present: Unremarkable - Neck Neck exam: Present: The tracheostomy tube is in good position. - Respiratory Respiratory exam: Present: He has distant breath sounds with prolonged expiration and some faint wheezing still. He still has fair breath sounds bilaterally. His exam is unchanged. - Cardiovascular Cardiovascular exam: Present: regular rate and rhythm. Absent: gallop, systolic murmur - GI/Abdominal GI/Abdominal exam: Present: normal bowel sounds, soft. Absent: distended, organomegaly, tenderness - Extremities Exam Extremities exam: Absent: calf tenderness, edema - Neurological Exam Neurological exam: Present: alert, he can move his extremities okay. He responds well. - Skin Skin exam: Present: warm, dry Results - Labs CBC & BMP: 12/02/16 01:59 12/02/16 01:59 Labs: PO2 is 79 with a PCO2 of 55 and a pH of 7.49 - Diagnostic Findings Procedure: Chest x-ray: image reviewed by me, report reviewed by me (Chest x- ray shows severe COPD changes but the infiltrates are a little better) Assessment and Plan (1) Hypertension Status: Chronic Assessment and plan: He has a stable blood pressure now. His blood pressure does go up at times. For the most part his blood pressure has been better. Current Visit: No Qualifiers: Hypertension type: essential hypertension Qualified Code(s): I10 - Essential (primary) hypertension (2) Pneumothorax, acute Status: Acute Assessment and plan: His right lung is expanded and there is no pneumothorax now. He still does not have an air leak Current Visit: Yes (3) Acute respiratory failure Status: Acute Assessment and plan: The patient has severe COPD with respiratory failure. He has continued to have trouble with CPAP and fatigues easily. He got his tracheostomy tube placed yesterday. He will continue with weaning trials. Current Visit: Yes (4) Acute exacerbation of chronic obstructive pulmonary disease (COPD) Status: Acute Assessment and plan: Patient has significant COPD and is being treated with steroids and bronchodilator therapy. Will continue with vigorous respiratory therapy. He should be able to come off the ventilator with a tracheostomy tube. We will continue weaning trials. Overall he has been reasonably stable. Current Visit: Yes
--- NOTE | 2016-12-02 07:45 | XRay Report ---
History is a ventilator management Comparison 12/01/2016 Heart is normal in size. Tracheostomy remains. Hyperlucency in the right upper lung again seen with a right chest tube present. Markings over the right chest are unchanged. No definite pneumothorax seen. Mild patchy opacities in the mid to lower chest bilaterally remain with mild gradual improvement. Impression: Mild gradual improvement of prior patchy bilateral pulmonary opacities superimposed on chronic changes PROCEDURE INTERPRETED AT [facility] DEPARTMENT OF RADIOLOGY Final Report Signed by: Dr. Cierra Prakash
[2016-12-02] MEDS: BUDESONIDE/FORMOTEROL 160-4.5 INHALER 6 GM INH SCH ×2 (09:27→20:36)
[2016-12-02] MEDS: PANTOPRAZOLE 40 MG VIAL IV SCH (10:20)
--- NOTE | 2016-12-02 10:23 | General Surgery Progress Note ---
Assessment and Plan (1) Pneumothorax, acute Status: Acute Assessment and plan: Impression: Pneumothorax right side Plan: Chest tube removed. Occlusive dressing applied. We'll check chest x-ray later today. If no pneumothorax, nothing further surgical needed. Current Visit: Yes Subjective Patient reports: Present: no new complaints Narrative: Lethargic and does not respond to verbal stimuli Exam - Constitutional Vitals: Period Temp Pulse Resp BP Sys/Graf Pulse Ox Last 24 Hr 97 F-97.6 F 81-115 10-25 105-149/62-99 90-100 General appearance: no acute distress - Neck Neck exam: Present: normal inspection - Respiratory Respiratory exam: Present: clear to auscultation bilaterally, other (no air leak. Chest x-ray improved.) - Cardiovascular Cardiovascular exam: Present: RRR - Extremities Exam Extremities exam: Present: normal inspection - Neurological Exam Neurological exam: Present: alert, oriented X3 Speech: Present: normal - Skin Skin exam: Present: normal color Results - Labs CBC & BMP: 12/02/16 01:59 12/02/16 01:59 Lab Results: I have reviewed the past 24 hour labs Quality Measures - VTE Deep Vein Thrombosis/Pulmonary Embolism Present on Admission: No
[2016-12-02] MEDS: FUROSEMIDE 40 MG TABLET PO SCH (10:27)
[2016-12-02] MEDS: hydroCHLOROthiazide 12.5 MG CAPSULE PO SCH (10:27)
[2016-12-02] MEDS: ATORVASTATIN 10 MG TABLET PO SCH (10:27)
[2016-12-02] MEDS: DESITIN 4OZ/NYSTATIN 15 GRAM MIXTURE PASTE TOP SCH ×2 (10:27→20:36)
[2016-12-02] MEDS: FLUCONAZOLE INJ 200 MG in PREMIX 1 EACH IV SCH (10:28)
[2016-12-02] MEDS: AMINOPHYLLINE 1,000 MG in SODIUM CHLORIDE 0.9% 460 ML IV SCH (10:42)
--- NOTE | 2016-12-02 11:28 | Hospitalist Progress Note ---
Assessment and Plan (1) Acute respiratory failure Status: Acute Assessment and plan: Patient has a history of COPD and a bronchospastic disease.CXR done yesterday showed a small right sided pneumothorax and he currently has a chest tube placed. Microbiology. On 11/14/2016 the patient's sputum grew Zoë. Gram stain from 11/19/2016 shows less than 25 white blood cells per low power field. There are few gram-positive cocci and a few yeast. Microbiology 11/19/16- Sputum- no growth 11/21/2016 Chest tube still has small leak. Patient looks comfortable on the vent. He was awake. Dopplers- negative for DVT. 11/22/2016 Patient was re intubated yesterday because he was having problems with his ET. Chest tube to sunction still in place.CXR showed no significant change 11/23/2016 Doing well on the vent, may be extubated today.Chest tube is to gravity. He may be extubated today 11/24/2016 Patient was extubated yesterday but he had some trouble breathing overnight and ended up on a BIPAP. This am, he looked fairly comfortable but was still wheezing a little bit.His chest tube has been clamped.Sputum grew Zoë Albicans 11/25/2016 Patient was re-intubated at overnight due to laboured breathing and hypoxia. .His chest tube was back to suction. No obvious pneumothorax seen on today's chest x-ray. Small air leak present. CXR showed worsening infiltrate or atelectasis. 11/26/2016 Patient looks comfortable on the vent, he was awake and had his chest tube to suction. 11/27/2016 Chest tube is connected to water seal. He is doing fairly well on CPAP trials 11/28/2016 He had a bronchoscopy this am. His chest tube is still to water seal. He is tolerating CPAP trials. 11/29/2016 Patient seen on the vent with his chest tube in water seal. He had a therapeutic bronchoscopy yesterday and some thick secretions were cleared.He is tolerating CPAP trials. 11/30/2016 He continues to fatigue and has trouble while on CPAP and he does have CO2 retention. Pulm wants him to have a tracheostomy tube. Chest tube to water seal. 12/01/2016 There was blood gushing out of the trach tube, this has been controlled with pressure. 12/02/2016 Patient seen with trach connected to vent with blood sipping around the tube. Plan Continue to Hold Lovenox CBC in am continue IV Diflucan, antibiotics, vent support, chest tube continue Pulmonology and CT surgery's recommendations Current Visit: Yes (2) Acute exacerbation of chronic obstructive pulmonary disease (COPD) Status: Acute Assessment and plan: patient has severe lung disease. see treatment plan above Current Visit: Yes (3) Hypertension Status: Chronic Assessment and plan: better controlled. Continue with current regime. Current Visit: No Qualifiers: Hypertension type: essential hypertension Qualified Code(s): I10 - Essential (primary) hypertension (4) Dyslipidemia Status: Inactive Assessment and plan: Lipids-noted, continue with statins Current Visit: No (5) Hyperglycemia Status: Acute Assessment and plan: due to ? steroids. Plan HA1c level-7.0. Continue with SSC insulin and accu checks Current Visit: Yes (6) Hypokalemia Status: Acute Assessment and plan: we will continue to replete, bmp in am Current Visit: Yes (7) Supraventricular tachycardia Status: Acute Assessment and plan: Echo revealed normal left ventricular cavity size. Mild concentric left ventricular hypertrophy with diastolic dysfunction. left ventricular EF-60-65% .He is on Amiodarone ggt. Follow cardiology's recommendations Current Visit: Yes (8) Pneumothorax, acute Status: Acute Assessment and plan: s/p chest tube to water seal. Plan Follow Pulm and CT surgery's recommendations Current Visit: Yes (9) Hematuria Status: Acute Assessment and plan: This has cleared up, no need for Urology consult at this time.Renal USS was unremarkable. plan Continue to Hold Lovenox cbc in am Current Visit: Yes Hospitalist: Subjective Interval history: This a 66yr old male with a history of COPD who developed a small right sided pneumothorax, chest tube was placed and he was subsequently intubated. He was initially doing well on CPAP trials, got extubated and was re-intubated for SOB and ended up having a tracheostomy tube. His heart rate increased and cardiolgy was consulted. He was started on Amiodarone drip due to MATs/PATs. This am, he doesn't really look good, he was not as lively and there was blood coming out of the tracheostomy tube. Lovenox is on a hold. Exam - Constitutional Vitals: Period Temp Pulse Resp BP Sys/Graf Pulse Ox Last 24 Hr 97 F-97.6 F 81-109 10-25 105-149/62-99 91-100 General appearance: no acute distress, other (ill-looking, blood coming out of the tracheostomy tube) - Respiratory Respiratory exam: Present: rales - Cardiovascular Cardiovascular exam: Present: regular rate and rhythm - GI/Abdominal GI/Abdominal exam: Present: normal bowel sounds - Extremities Exam Extremities exam: Present: edema Results - Labs CBC & BMP: 12/02/16 01:59 12/02/16 01:59 Lab Results: I have reviewed the past 24 hour labs Quality Measures - VTE Deep Vein Thrombosis/Pulmonary Embolism Present on Admission: No
--- NOTE | 2016-12-02 12:16 | Cardiology Progress Note ---
Assessment and Plan (1) Supraventricular tachycardia Status: Acute Assessment and plan: 66 year old black male with severe COPD and pneumothorax, required intubation. He is also hypertensive. Has had atrial tachycardia with no sustained episodes of atrial fibrillation. Currently rate controlled with Cardizem. Now s/p tracheotomy. -PAT/MAT-Patient has been without arrhythmia overnight. Continue amiodarone, Cardizem. Will switch patient to p.o. amiodarone today. High pulmonary risk, but the arrhythmia was refractory to every other measure -Lasix was decreased to 40 mg daily p.o yesterday. Patient remains hypokalemic today with potassium of 3.2. This may contribute to high arrhythmia burden. Will replace per protocol. He does not have significant cardiomyopathy. Current Visit: Yes (2) Acute exacerbation of chronic obstructive pulmonary disease (COPD) Status: Acute Assessment and plan: Continue current plan of care. Defer further management to hospital medicine. Current Visit: Yes (3) Pneumothorax, acute Status: Acute Assessment and plan: Continue current plan of care with chest tube. Current Visit: Yes (4) Hypertension Status: Chronic Assessment and plan: This is currently well controlled. Will continue current plan of care. Current Visit: No Qualifiers: Hypertension type: essential hypertension Qualified Code(s): I10 - Essential (primary) hypertension Cardiology - PN: Subj Interval history: Primary care specialist: NONE Patient was seen and examined in the CCU. He remains sedated and ventilated. Continue to wean from ventilator as patient tolerates. He is status post tracheostomy. Telemetry has been reviewed, no atrial tachycardia noted. Heart rate is stable ranging between 80-90. Potassium is noted to be 3.2 today, will replace as per IV replacement protocol. Vital signs are stable. He is currently in normal sinus rhythm with occasional PACs. Exam (Progress Note) - Constitutional Vitals: Period Temp Pulse Resp BP Sys/Graf Pulse Ox Last 24 Hr 97 F-97.6 F 81-106 10-25 105-149/62-99 91-100 Exam: General appearance: normal weight - Head Head exam: Present: normal inspection, normocephalic - Eye Eye exam: Absent: conjunctival injection Pupils: Absent: dilated - ENT ENT exam: Present: normal external ear exam - Neck Neck exam: Present: other (tracheostomy) - Respiratory Respiratory exam: Present: decreased breath sounds. Absent: prolonged expiratory phase - Cardiovascular Cardiovascular exam: Present: Regular rate and rhythm, systolic murmur - GI/Abdominal GI/Abdominal exam: Present: hypoactive bowel sounds. Absent: distended - Extremities Exam Extremities exam: Present: normal inspection, normal capillary refill, edema (1+ ) - Neurological Exam Neurological exam: Present: Patient is sedated on the ventilator, unable to assess neurological status. - Skin Skin exam: Present: normal color, warm. Absent: cyanosis Result/EKG - Labs CBC & BMP: 12/02/16 01:59 12/02/16 01:59 Lab Results: I have reviewed the past 24 hour labs Labs: Laboratory Results - last 24 hr 12/01/16 12/01/16 12/02/16 17:11 17:42 00:13 WBC RBC Hgb Hct MCV MCH MCHC RDW Plt Count MPV Neut % (Auto) Lymph % (Auto) Norton % (Auto) Eos % (Auto) Baso % (Auto) Neut # (Auto) Lymph # (Auto) Norton # (Auto) Eos # (Auto) Baso # (Auto) Total Counted Immature Gran % Nucleated RBC % Immature Gran # Segmented Neutrophils Monocytes Nucleated RBCs # Platelet Estimate Hypochromasia ABG pH ABG pCO2 ABG pO2 ABG HCO3 ABG Total CO2 ABG O2 Saturation ABG Base Excess FiO2 Sodium Potassium 3.2 L Chloride Carbon Dioxide Anion Gap BUN Creatinine GFR Calculation BUN/Creatinine Ratio Glucose POC Glucose 156 H 154 H Calculated Osmolality Calcium Magnesium 12/02/16 12/02/16 12/02/16 01:59 01:59 01:59 WBC 17.7 H RBC 3.61 L Hgb 9.4 L Hct 29.8 L MCV 82.5 L MCH 26 L MCHC 31.5 L RDW 15.3 Plt Count 144 MPV 11.1 Neut % (Auto) 95.8 H Lymph % (Auto) 0.7 L Norton % (Auto) 2.3 Eos % (Auto) 0.0 Baso % (Auto) 0.1 Neut # (Auto) 16.9 H Lymph # (Auto) 0.1 L Norton # (Auto) 0.4 Eos # (Auto) 0.0 Baso # (Auto) 0.0 Total Counted 100 Immature Gran % 1.1 Nucleated RBC % 0.0 Immature Gran # 0.20 Segmented Neutrophils 98 H Monocytes 2 Nucleated RBCs # 0.00 Platelet Estimate Adequate Hypochromasia Slight ABG pH ABG pCO2 ABG pO2 ABG HCO3 ABG Total CO2 ABG O2 Saturation ABG Base Excess FiO2 Sodium 136 Potassium 3.2 L 3.2 L Chloride 91 L Carbon Dioxide 38 H Anion Gap 10.2 BUN 29 H Creatinine 0.60 L GFR Calculation 129 BUN/Creatinine Ratio 48.00 H Glucose 194 H POC Glucose Calculated Osmolality 282.0 Calcium 8.1 L Magnesium 2.2 12/02/16 12/02/16 02:45 06:04 WBC RBC Hgb Hct MCV MCH MCHC RDW Plt Count MPV Neut % (Auto) Lymph % (Auto) Norton % (Auto) Eos % (Auto) Baso % (Auto) Neut # (Auto) Lymph # (Auto) Norton # (Auto) Eos # (Auto) Baso # (Auto) Total Counted Immature Gran % Nucleated RBC % Immature Gran # Segmented Neutrophils Monocytes Nucleated RBCs # Platelet Estimate Hypochromasia ABG pH 7.492 H ABG pCO2 55.5 H ABG pO2 79.2 L ABG HCO3 41.5 H ABG Total CO2 43.2 H ABG O2 Saturation 95.6 ABG Base Excess 16.1 H FiO2 40.00 Sodium Potassium Chloride Carbon Dioxide Anion Gap BUN Creatinine GFR Calculation BUN/Creatinine Ratio Glucose POC Glucose 159 H Calculated Osmolality Calcium Magnesium Quality Measures - VTE Deep Vein Thrombosis/Pulmonary Embolism Present on Admission: No
--- NOTE | 2016-12-02 14:31 | Interventional Radiology Rpt ---
Exam: IR PICC line insertion, US guide vascular access Date: 12/02/2016 Indication: Long-term antibiotic ventilator tracheostomy dependent Vascular interventional radiologist: Blue Marie. Nika Davis, RT Fluoroscopy time. 1.2 minutes Comparison: None Findings: The risk and benefits were explained and informed consent was obtained. The patient's placed on examination table. The left arm was prepped and with maximal sterile barrier utilized with the picker machine operator and assistance wearing, caps, gown ,gloves ,facemask and hand washing was utilized. The patient arm was cleansed with ChloraPrep. 1% local lidocaine was administered. Real-time ultrasound guidance was utilized with image stored and captured. Sterile ultrasound gel was utilized. The left brachial vein was patent. A micropuncture catheter was placed with real-time ultrasound guidance. An 018 guidewire was advanced and a peel-away sheath was placed.. A 47 centimeter dual-lumen PICC line was placed and secured to the skin with StatLock device and flushed with heparinized saline solution. Estimated blood loss. Minimal Complications. None Condition. Guarded Specimen none Impression: 1. Satisfactory ultrasound and fluoroscopy guided PICC line placement with the distal tip in the superior vena cava right atrial junction with real-time ultrasound guidance utilized and fluoroscopy PROCEDURE INTERPRETED AT [facility] DEPARTMENT OF RADIOLOGY Final Report Signed by: Dr. Blue Lane
--- NOTE | 2016-12-02 14:41 | XRay Report ---
Exam: XR chest 1V portable Date: 12/02/2016 2:00 PM Indication: Shortness of breath post PICC line Comparison: 12/02/2016 3:43 AM Technical: AP portable Findings: Left-sided PICC line has been placed this tip is in the superior vena cava to right atrial junction. Tracheostomy tube and nasogastric tube are present. Low volume effusions and atelectatic change present in the bases. Removal of the right-sided thoracotomy tube. No obvious pneumothorax. ASVD is present. Impression: 1. Interval placement of PICC line 2. Removal of the right-sided thoracotomy tube 3. Stable nasogastric tube and tracheostomy tube 4. No pneumothorax 5. Minimal atelectatic residual change in the bases with improving aerations bilaterally PROCEDURE INTERPRETED AT [facility] DEPARTMENT OF RADIOLOGY Final Report Signed by: Dr. Blue Lane
[2016-12-02] MEDS: AMIODARONE 200 MG TABLET PO SCH ×2 (14:55→20:35)
--- NOTE | 2016-12-02 15:54 | Progress Note ---
Assessment and Plan - Time spent with patient Time spent with patient: Greater than 30 minutes (1) Ventilator dependence Status: Acute Assessment and plan: I recommend tracheostomy placement we will consent for surgery tomorrow we will hold anticoagulants and tube feeds at midnight today. Thank you very much for this consult and I will follow the patient intermittently throughout his time in the hospital. Current Visit: Yes (2) Respiratory failure Status: Acute Current Visit: Yes (3) Acute exacerbation of chronic obstructive pulmonary disease (COPD) Status: Acute Current Visit: Yes (4) Tracheostomy hemorrhage Status: Acute Assessment and plan: Treated with packing of the stoma paratracheally with Surgicel this performed at bedside tolerated well we will continue to follow this patient if we need to we can perform this procedure again. He may continue to have some mild hemorrhage but hopefully his hypertension will continue to be more optimally controlled on this will help as well. Current Visit: Yes Family Medicine PN Sub Interval history: Postop day #2 tracheostomy called to bedside secondary to continued mild trach hemorrhage. Hypertension has been poorly controlled and has recently had an increase in Cardizem to help with this. He is soaked through multiple drain sponges and has been for today. ENT is called to evaluate Exam (Progress Note) - Constitutional Vitals: Period Temp Pulse Resp BP Sys/Graf Pulse Ox Last 24 Hr 97 F-97.6 F 81-101 10-25 105-172/62-84 92-100 - Neck Neck exam: Present: other (Paratracheal venous hemorrhage mild possibly secondary to poorly controlled hypertension and recent surgical status packed with Surgicel at bedside tolerated well we will continue to monitor this patient ) Results - Labs CBC & BMP: 12/02/16 01:59 12/02/16 01:59 Lab Results: I have reviewed the past 24 hour labs Quality Measures - VTE Deep Vein Thrombosis/Pulmonary Embolism Present on Admission: No
[2016-12-02] MEDS: LEVOFLOXACIN INJ 750 MG in PREMIX 1 EACH IV SCH (17:30)
[2016-12-03] MEDS: MIDAZOLAM 100 MG in SODIUM CHLORIDE 0.9% 80 ML IV SCH (00:36)
[2016-12-03] MEDS: INSULIN REGULAR 100 UNIT/ML SUBCUT SCH ×4 (00:37→18:44)
[2016-12-03] MEDS: PIPERACILLIN/TAZOBACTAM 3,375 MG in SODIUM CHLORIDE 0.9% 100 ML IV SCH ×2 (00:37→09:59)
[2016-12-03] MEDS: methylPREDNISolone SOD SUC 125 MG/2 ML VIAL IV SCH ×3 (00:37→18:19)
[2016-12-03] MEDS: DILTIAZEM 60 MG TABLET PO SCH ×4 (03:35→20:17)
[2016-12-03] MEDS: ALBUTEROL/IPRATROPIUM 3 ML NEB RESP TX SCH ×6 (03:44→23:10)
[2016-12-03 04:05] LABS: Pt O2 Delivery Device Ventilator
[2016-12-03 04:09] LABS: ABG Base Excess 11.7 MMOL/L (-2.5-2.5); ABG HCO3 35.4 MMOL/L (20-26); ABG Oxygen Saturation 98.4 % (95-100); ABG PCO2 52.4 MM HG (35-48); ABG TCO2 34.1 MMOL/L (23-27)
--- NOTE | 2016-12-03 07:37 | XRay Report ---
XR chest 1V portable Indication: Ventilated. Chest one view: Since yesterday, patient is more rotated to the left. Tracheostomy, NG tube, PICC line, emphysematous changes of the lungs, hyperinflation of the right lung with substantial leftward deviation of the anterior pleural junction line, coarsened interstitial markings throughout the right mid lung and lung base as well as entire left lung, and obscuration of the left lung base are stable. Borderline cardiomegaly appears unchanged as well. Impression: Given variation in technique, no significant change. PROCEDURE INTERPRETED AT [facility] DEPARTMENT OF RADIOLOGY Final Report Signed by: Ben Taylor M.D.
[2016-12-03] MEDS: BUDESONIDE/FORMOTEROL 160-4.5 INHALER 6 GM INH SCH ×2 (09:03→20:18)
[2016-12-03] MEDS: DESITIN 4OZ/NYSTATIN 15 GRAM MIXTURE PASTE TOP SCH ×2 (09:46→20:18)
[2016-12-03] MEDS: FUROSEMIDE 40 MG TABLET PO SCH (09:47)
[2016-12-03] MEDS: hydroCHLOROthiazide 12.5 MG CAPSULE PO SCH (09:47)
[2016-12-03] MEDS: ATORVASTATIN 10 MG TABLET PO SCH (09:47)
--- NOTE | 2016-12-03 09:47 | Hospitalist Progress Note ---
Assessment and Plan (1) Hypokalemia Status: Acute Assessment and plan: Supplement potassium with potassium chloride 40 mEq IV over 2 hours. Should check magnesium if is less than 1.8 give 2 g of magnesium sulfate. Repeat BMP and magnesium in the morning alongside a CBC. Current Visit: Yes (2) Ventilator dependence Status: Acute Current Visit: Yes (3) Hypertension Status: Chronic Assessment and plan: Patient needs to have an afterload reduction using an angiotensin receptor barbara. That will be valsartan 80 mg daily. And noticed that patient does have generalized edema. Congestive heart failure may be inflated to at this point. He could use a selective beta-barbara with metoprolol 25 mg twice a day. That should not interfere with his of bronchospasms as much. Will follow blood pressure along the way. Addition of a calcium channel barbara be the next step. Current Visit: No Qualifiers: Hypertension type: essential hypertension Qualified Code(s): I10 - Essential (primary) hypertension (4) Respiratory failure Status: Acute Assessment and plan: This is an acute problem has been followed by pulmonology. Patient has a tracheostomy. I will defer decision-making on vent management to pulmonology. However on account of possible pulmonary edema patient may benefit from replacing Piperacillin/tazobactam with meropenem; that should mitigate sodium loading that comes along with Piperacillin/tazobactam. Also discontinue fluconazole at this point; he has had enough of it. Current Visit: Yes Hospitalist: Subjective Interval history: Patient has been seen and examined. He has a permanent trach and difficult to phonate. He does seem to have some respiratory difficulty. Chest x-ray done today shows no change from previous x-ray and ABG shows hypercarbia and the relative hypoxemia however hooker on on the case and has reviewed these and I am informed that the hooker on is comfortable with it. Please refer to the chest x-ray report and the ABG report from this morning detail. Exam - Constitutional Vitals: Period Temp Pulse Resp BP Sys/Graf Pulse Ox Last 24 Hr 97.1 F-99.0 F 88-122 4-33 105-172/64-92 90-100 General appearance: normal weight - Head Head exam: Present: normocephalic, atraumatic - Eye Eye exam: Present: EOMI, other (Anicteric sclera no conjunctival petechia) Pupils: Present: RAHEEL - ENT ENT exam: Present: normal oropharynx, other (However noted an abrasion in the scab on the upper lip could be secondary to intubation I will could be hsv1 labialis that is healing) - Neck Neck exam: Present: other (Tracheostomy in place) - Respiratory Respiratory exam: Present: other (Labored respirations are noted mid to end expiratory wheezing but very distant lung sounds patient is on bronchodilators and Solu-Medrol) - Cardiovascular Cardiovascular exam: Present: tachycardia - GI/Abdominal GI/Abdominal exam: Present: normal bowel sounds, soft - Extremities Exam Extremities exam: Present: other (Noted bilateral upper extremity edema and some sacral edema) - Neurological Exam Neurological exam: Present: other (Patient is awake and is to talk but cannot phonate words. Tube output cannot be exactly evaluated) - Psychiatric Psychiatric exam: Present: other (I am unable to exactly assess his psychiatric status) - Skin Skin exam: Present: other (Bilateral upper extremity edema is noted also noticed some hyperkeratotic old close on the skin of his back) Results - Labs CBC & BMP: 12/02/16 01:59 12/03/16 03:26 Lab Results: I have reviewed the past 24 hour labs (Noted hypokalemia chronic anemia noted leukocytosis however the patient is on Solu-Medrol) Quality Measures - VTE Deep Vein Thrombosis/Pulmonary Embolism Present on Admission: No
[2016-12-03] MEDS: AMIODARONE 200 MG TABLET PO SCH ×2 (09:48→20:17)
[2016-12-03] MEDS: PANTOPRAZOLE 40 MG VIAL IV SCH (09:52)
[2016-12-03] MEDS: PROPOFOL 1,000 MG/100 ML BOTTLE IV SCH (09:56)
[2016-12-03] MEDS: FLUCONAZOLE INJ 200 MG in PREMIX 1 EACH IV SCH (09:58)
[2016-12-03] MEDS ORDERED: MAGNESIUM SULF RIDER 1 GM in PREMIX 1 EACH IV ONE (10:01)
--- NOTE | 2016-12-03 10:27 | Pulmonology Progress Note ---
Pulmonary - PN: Subj Interval history: This is a 66-year-old male whom I am seeing for Dr. Jaron Martin. The patient has severe COPD. He has been in respiratory failure has required intubation and mechanical ventilation. He got a trach placed on 12/01/2016. The next day there was some problem with bleeding but this is come under control. This patient is been hard to wean he is on weaning protocol. Yesterday he did 7 hours of CPAP. He has had recently had a chest tube and this was pulled. Today's chest x-ray shows hyperinflated lung blum. There is cardiomegaly and he has bilateral pleural effusions which are greater on the left. Left hilum is very prominent and there is a calcified scar in the right midlung field adjacent to the right hilum. Cultures are only positive for Zoë. ABGs on mechanical ventilation FiO2 40% shows a pH of 7.46, PCO2 of 52.4, PO2 of 109 and a bicarb of 35.4. Glucose is under fair control. Potassium is low at 3.1. There is no other new lab. Last white count was 17,796% segs Physical exam. Vital signs. See below Chest. Large airway congestion Heart. No definite gallop Abdomen. Nondistended. Positive bowel sounds Extremities. No edema Neurologic. Patient appears to have some movement in all 4 extremities Neck. Symmetrical. No meningismus. Lymphatic. No submandibular cervical supraclavicular or epitrochlear adenopathy. Face is symmetrical. No swelling of the lips or tongue noted. The remainder of the physical exam is noncontributory. Plan. 1. Continue present medicines 2. Continue weaning protocol 3. Continue physical therapy protocol Exam (Progress Note) - Constitutional Vitals: Period Temp Pulse Resp BP Sys/Graf Pulse Ox Last 24 Hr 97.1 F-99.0 F 88-122 4-33 105-180/64-92 90-100 Results - Labs CBC & BMP: 12/02/16 01:59 12/03/16 03:26
[2016-12-03] MEDS ORDERED: hydrALAZINE 20 MG/1 ML VIAL IV PRN (11:00)
--- NOTE | 2016-12-03 11:48 | Cardiology Progress Note ---
Assessment and Plan (1) Supraventricular tachycardia Status: Acute Assessment and plan: 66 year old black male with severe COPD and pneumothorax, required intubation. He is also hypertensive. Has had atrial tachycardia with no sustained episodes of atrial fibrillation. Currently rate controlled with Cardizem. Now s/p tracheotomy. -PAT/MAT-continue amiodarone, Cardizem. Plan to decrease amiodarone to 200 mg once a day, on 12/09. High pulmonary risk, but the arrhythmia was refractory to every other measure -Hypertension. Hydralazine IV 10 mg every 4 hours, as needed systolic blood pressure greater than 150. Recommend to hold off metoprolol for now. -Lasix to 40 mg daily p.o. He still has some peripheral edema, but hypokalemia may contribute to high arrhythmia burden. Replete potassium. He does not have significant cardiomyopathy. Current Visit: No (2) Acute exacerbation of chronic obstructive pulmonary disease (COPD) Status: Acute Current Visit: Yes (3) Pneumothorax, acute Status: Acute Current Visit: Yes (4) Hypertension Status: Chronic Current Visit: No Qualifiers: Hypertension type: essential hypertension Qualified Code(s): I10 - Essential (primary) hypertension Cardiology - PN: Subj Interval history: Atrial tachyarrhythmia burden decreased. The blood pressure is elevated today. The bleeding from around the tracheostomy site slowed down. Exam (Progress Note) - Constitutional Vitals: Period Temp Pulse Resp BP Sys/Graf Pulse Ox Last 24 Hr 97.1 F-99.0 F 91-122 4-33 89-180/64-92 90-100 General appearance: normal weight, no acute distress - Head Head exam: Present: normal inspection, atraumatic - Eye Eye exam: Absent: conjunctival injection Pupils: Absent: dilated - ENT ENT exam: Present: normal external ear exam - Neck Neck exam: Present: other (Tracheostomy in place, the dressing is soaked with dried blood) - Respiratory Respiratory exam: Present: decreased breath sounds, prolonged expiratory phase - Cardiovascular Cardiovascular exam: Present: regular rate and rhythm, systolic murmur - GI/Abdominal GI/Abdominal exam: Present: hyperactive bowel sounds. Absent: firm, guarding - Extremities Exam Extremities exam: Present: normal inspection, normal capillary refill, edema (1+ ) - Neurological Exam Neurological exam: Present: alert - Psychiatric Psychiatric exam: Present: normal affect, normal mood - Skin Skin exam: Present: normal color, warm. Absent: cyanosis Result/EKG - Labs CBC & BMP: 12/02/16 01:59 12/03/16 03:26 Lab Results: I have reviewed the past 24 hour labs Labs: Laboratory Results - last 24 hr 12/02/16 12/02/16 12/02/16 12:15 17:52 23:58 ABG pH ABG pCO2 ABG pO2 ABG HCO3 ABG Total CO2 ABG O2 Saturation ABG Base Excess FiO2 Potassium POC Glucose 210 H 204 H 186 H 12/03/16 12/03/16 12/03/16 03:26 03:45 05:30 ABG pH 7.460 H ABG pCO2 52.4 H ABG pO2 109.0 H ABG HCO3 35.4 H ABG Total CO2 34.1 H ABG O2 Saturation 98.4 ABG Base Excess 11.7 H FiO2 40.00 Potassium 3.1 L POC Glucose 173 H 12/03/16 11:42 ABG pH ABG pCO2 ABG pO2 ABG HCO3 ABG Total CO2 ABG O2 Saturation ABG Base Excess FiO2 Potassium POC Glucose 203 H Quality Measures - VTE Deep Vein Thrombosis/Pulmonary Embolism Present on Admission: No
[2016-12-03] MEDS: MEROPENEM 500 MG in SODIUM CHLORIDE 0.9% 100 ML IV SCH ×2 (12:20→18:21)
[2016-12-03] MEDS: POTASSIUM CHLORIDE RIDER 20 MEQ in PREMIX 1 EACH IV PRN (12:21)
[2016-12-03] MEDS: VALSARTAN 80 MG TABLET PO SCH (12:21)
[2016-12-03] MEDS ORDERED: NOREPINEPHRINE 4 MG/4 ML VIAL IV ONE (15:03)
[2016-12-03] MEDS: NOREPINEPHRINE 8 MG in SODIUM CHLORIDE 0.9% 242 ML IV SCH (15:30)
[2016-12-03] MEDS: AMINOPHYLLINE 1,000 MG in SODIUM CHLORIDE 0.9% 460 ML IV SCH (15:31)
[2016-12-03] MEDS: LEVOFLOXACIN INJ 750 MG in PREMIX 1 EACH IV SCH (18:18)
[2016-12-03] MEDS ORDERED: METOPROLOL TARTRATE 25 MG TABLET PO SCH (21:00)
[2016-12-04] MEDS: INSULIN REGULAR 100 UNIT/ML SUBCUT SCH ×2 (01:08→06:30)
[2016-12-04] MEDS: methylPREDNISolone SOD SUC 125 MG/2 ML VIAL IV SCH ×2 (01:08→19:10)
[2016-12-04] MEDS: MEROPENEM 500 MG in SODIUM CHLORIDE 0.9% 100 ML IV SCH (02:13)
[2016-12-04] MEDS: MIDAZOLAM 100 MG in SODIUM CHLORIDE 0.9% 80 ML IV SCH (02:44)
[2016-12-04] MEDS: DILTIAZEM 60 MG TABLET PO SCH ×2 (03:08→19:10)
[2016-12-04] MEDS: ALBUTEROL/IPRATROPIUM 3 ML NEB RESP TX SCH ×2 (03:10→09:45)
[2016-12-04 04:01] LABS: Allen Test Positive; Pt O2 Delivery Device Ventilator
[2016-12-04 04:38] LABS: ABG Base Excess 10.6 MMOL/L (-2.5-2.5); ABG HCO3 34.3 MMOL/L (20-26); ABG Oxygen Saturation 97.5 % (95-100); ABG PCO2 60.5 MM HG (35-48); ABG PH 7.397 (7.35-7.45); ABG TCO2 34.7 MMOL/L (23-27)
[2016-12-04 04:47] LABS: Magnesium 2.4 MG/DL (1.8-2.4); Potassium 3.8 MMOL/L (3.5-5.1)
[2016-12-04 05:40] LABS: Basophils % 0.1 % (0.0-0.8); Immature Granulocytes % 1.6 %; Immature Granulocytes Absolute 0.31 #; Lymphocytes # 0.1 10*3/uL (1.4-4.0); Lymphocytes % 0.5 % (21.2-54.2); Mean Corpuscular HGB Conc 30.8 GM/DL (32-36); Mean Corpuscular Hemoglobin 27 PG (27-34); Mean Corpuscular Volume 86.7 FL (87-102); Mean Platelet Volume 10.8 FL (9.6-12.0); Monocytes # 0.4 10*3/uL (0.11-0.8); Monocytes % 2.1 % (1.7-12.7); NRBC # 0.02 10*3/uL; Neutrophils % 95.7 % (38.7-73.9); Platelet Count 117 T/CUMM (130-400); Red Cell Distribution Width 15.8 % (9.3-17.3); White Blood Count 18.8 T/CUMM (4-12)
[2016-12-04 06:18] LABS: Hypochromasia 1+; Lymphocytes 2 % (20-55); Platelet Estimate Normal; Segmented Neutrophils 98 % (50-85); Total Cells Counted 100
[2016-12-04] MEDS: POTASSIUM CHLORIDE RIDER 20 MEQ in PREMIX 1 EACH IV PRN (06:32)
[2016-12-04 07:07] LABS: Alanine Aminotransferase 26 U/L (16-61); Alkaline Phosphatase 46 U/L (45-117); Aspartate Amino Transferase 32 U/L (0-37); Bilirubin,Total < 0.39 MG/DL (0.2-1.0); Blood Urea Nitrogen 51 MG/DL (7-18); Calcium 7.9 MG/DL (8.5-10.1); Glucose 158 MG/DL (74-106); Osmolality,Calculated 284.2 MOS/KG (273-304); Potassium 3.8 MMOL/L (3.5-5.1); Sodium 134 MMOL/L (136-145); Total Protein 4.1 G/DL (6.4-8.3)
[2016-12-04] MEDS ORDERED: SODIUM BICARBONATE 50 MEQ/50 ML SYRINGE IV ONE (08:34)
[2016-12-04] MEDS ORDERED: AMIODARONE 450 MG/9 ML VIAL IV ONE (08:38)
[2016-12-04] MEDS ORDERED: EPINEPHrine 1 MG/ML VIAL ONE (08:44)
[2016-12-04 08:59] LABS: ABG Base Excess 1.5 MMOL/L (-2.5-2.5); ABG HCO3 24.9 MMOL/L (20-26); ABG Oxygen Saturation 25.8 % (95-100)
[2016-12-04 09:05] LABS: ABG PH 7.073 (7.35-7.45)
[2016-12-04 09:06] LABS: ABG PO2 26.8 MM HG (80-95)
[2016-12-04 09:14] LABS: Basophils % 0.1 % (0.0-0.8); Hematocrit 24.5 VOL% (42.0-52.0); Hemoglobin 7.1 GM/DL (14.0-18.0); Immature Granulocytes % 6.2 %; Immature Granulocytes Absolute 1.38 #; Lymphocytes % 4.6 % (21.2-54.2); Mean Corpuscular Hemoglobin 27 PG (27-34); Mean Corpuscular Volume 92.1 FL (87-102); Mean Platelet Volume 10.9 FL (9.6-12.0); Monocytes # 0.5 10*3/uL (0.11-0.8); Monocytes % 2.3 % (1.7-12.7); NRBC # 0.17 10*3/uL; Neutrophils # 19.3 10*3/uL (1.4-7.4); Neutrophils % 86.8 % (38.7-73.9); Platelet Count 109 T/CUMM (130-400); Red Blood Count 2.66 MC/CUMM (3.8-5.5); Red Cell Distribution Width 15.9 % (9.3-17.3); White Blood Count 22.2 T/CUMM (4-12)
--- NOTE | 2016-12-04 09:17 | Hospitalist Progress Note ---
Assessment and Plan (1) Hypokalemia Status: Acute Assessment and plan: Resolved today Current Visit: Yes (2) Ventilator dependence Status: Acute Assessment and plan: Patient is noted in the subjective information is back on new trach with subsequent tension pneumothorax and subcutaneous emphysema. He would be vent dependent for some time. Current Visit: Yes (3) Hypertension Status: Chronic Assessment and plan: Review event of this morning this note to my evaluation today but he does have essential hypertension; intention is to follow through on our by our monitoring. Will hold oral antihypertensive for systolic blood pressures less than 1 40 mmHg Current Visit: No Qualifiers: Hypertension type: essential hypertension Qualified Code(s): I10 - Essential (primary) hypertension (4) Respiratory failure Status: Acute Assessment and plan: This is an acute problem has been followed by pulmonology. Patient has a tracheostomy. I will defer decision-making on vent management to pulmonology. However on account of possible pulmonary edema patient may benefit from replacing Piperacillin/tazobactam with meropenem; that should mitigate sodium loading that comes along with Piperacillin/tazobactam. Also discontinue fluconazole at this point; he has had enough of it. All these issues mentioned above in this narrative are complicated by events of today repeat sputum Gram stain and culture alongside blood culture. Current Visit: Yes (5) Subcutaneous emphysema Status: Acute Assessment and plan: Recovering from this will take some time. Patient has a chest tube hopefully lung infection subsequent to be sufficient timely. Pulmonology is on the case alongside cardiology and primary care Current Visit: Yes (6) Tension pneumothorax Status: Acute Current Visit: Yes Hospitalist: Subjective Interval history: Patient was seen in area as ENT was responding to change his trach. Examination was deferred to later on. Trach was changed and as I was looking at the other patients with a rash back to the room where found to have subcutaneous emphysema subsequent changing of the trach. Patient also arrested and full ACLS was performed. It took some time to establish good tracking to the patient. In the process of doing that was informed that the patient had right-sided pneumothorax again. This was obviously complicating the whole issue of chest tube was placed as CPR was going on. Chest x-ray the pneumothorax was confirmed there is also evidence of some shift of organs of the left to the right side. After CPR the patient was able to resume spontaneous rhythm however without blood pressure; bicarbonate subsequent to giving epinephrine was given. Patient was also given amiodarone management of ventricular dysrhythmia subsequently resumed presence of blood pressure with a pulse. An A-line was placed ABG obtained suggested possibility of the line being in the vein and the secondary line is in the process of being pulled right now. Anesthesia was still significant subcutaneous emphysema with a neutrophilic right-sided chest tube. Jalen has been drawn for chemistry CBC will also draw blood cultures and obtain sputum cultures. Repeat chest x-ray will be done. For the cellulitis report will be on the chart. Hypothermia protocol is also being initiated. Exam - Constitutional Vitals: Period Temp Pulse Resp BP Sys/Graf Pulse Ox Last 24 Hr 97 F-98.2 F 86-108 5-36 66-184/44-117 84-100 General appearance: normal weight - Head Head exam: Present: other (Significant subcutaneous emphysema with a swollen periorbital soft tissues chest around the neck all the way down into the torso into the groin.) - Eye Eye exam: Present: periorbital swelling, other (Eyes are swollen shut no further evaluation) - ENT ENT exam: Present: other (Swollen lips as alongside if swelling of the face) - Neck Neck exam: Present: other (Subcutaneous emphysema) - Respiratory Respiratory exam: Present: other (Chest x-ray shows right-sided pneumothorax) - Cardiovascular Cardiovascular exam: Present: other (Irregular rhythm on monitor. Blood pressure is optimal at this point; 102/66) - GI/Abdominal GI/Abdominal exam: Present: other (Subcutaneous emphysema post CPR) - Extremities Exam Extremities exam: Present: other (Patient is comatose) - Neurological Exam Neurological exam: Present: other (Comatose) - Psychiatric Psychiatric exam: Present: other (Comatose) - Skin Skin exam: Present: other (Diffuse subcutaneous emphysema) Results - Labs CBC & BMP: 12/04/16 Unknown 12/04/16 04:00 Lab Results: I have reviewed the past 24 hour labs (Noted leukocytosis this could be addition to steroid use however contribution of sepsis in this situation cannot be ruled out.) Quality Measures - VTE Deep Vein Thrombosis/Pulmonary Embolism Present on Admission: No
--- NOTE | 2016-12-04 09:20 | Cardiology Progress Note ---
Assessment and Plan (1) Supraventricular tachycardia Status: Acute Assessment and plan: 66 year old black male with severe COPD and pneumothorax, required intubation. He is also hypertensive. Has had atrial tachycardia with no sustained episodes of atrial fibrillation. Currently rate controlled with Cardizem. Now s/p tracheotomy. 12/04. Cardiorespiratory arrest due to acute respiratory compromise, subcutaneous emphysema. Prolonged CPR -Initiate hypothermia protocol. -Continue IV amiodarone drip, continue IV epinephrine drip and IV Levophed for blood pressure support. CPR and critical care performed for 60 minutes. Current Visit: No (2) Acute exacerbation of chronic obstructive pulmonary disease (COPD) Status: Acute Current Visit: Yes (3) Pneumothorax, acute Status: Acute Current Visit: Yes (4) Hypertension Status: Chronic Current Visit: No Qualifiers: Qualified Code(s): I10 - Essential (primary) hypertension Cardiology - PN: Subj Interval history: He had less atrial ectopy overnight. This morning, he developed sudden onset neck and upper chest subcutaneous emphysema, with respiratory collapse, then cardiorespiratory arrest. CPR was started. See sheet for details. Dr. Maher performed emergency change of the tracheostomy, and the chest tube was reinserted on the right side due to worsened pneumothorax. Dr. Conrad placed central line and A-line. Prolonged CPR was required due to severe respiratory compromise, finally, ventilation was possible and he resumed perfusing heart rhythm, after amiodarone and several shocks for refractory V. fib. We will initiate hypothermia protocol and continue critical care. Family aware of poor prognosis. CPR and critical care performed 60 minutes. Exam (Progress Note) - Constitutional Vitals: Period Temp Pulse Resp BP Sys/Graf Pulse Ox Last 24 Hr 97 F-98.2 F 86-108 5-36 66-184/44-117 84-100 General appearance: normal weight, no acute distress - Head Head exam: Present: other (Facial subcutaneous emphysema) - Eye Eye exam: Present: periorbital swelling. Absent: laceration to eyelids - ENT ENT exam: Present: normal external ear exam - Neck Neck exam: Present: other (Tracheostomy in place.) - Respiratory Respiratory exam: Present: decreased breath sounds, other (Left-sided subcutaneous emphysema and decreased breath sounds on the right) - Cardiovascular Cardiovascular exam: Present: regular rate and rhythm, tachycardia - GI/Abdominal GI/Abdominal exam: Present: other (No bowel sounds). Absent: distended, firm, guarding - Extremities Exam Extremities exam: Present: other (Good femoral pulse no edema) - Neurological Exam Neurological exam: Present: other (Unresponsive) - Skin Skin exam: Present: normal color, warm. Absent: cyanosis Result/EKG - Labs CBC & BMP: 12/04/16 Unknown 12/04/16 04:00 Lab Results: I have reviewed the past 24 hour labs Labs: Laboratory Results - last 24 hr 12/03/16 12/03/16 12/03/16 11:42 18:14 19:51 WBC RBC Hgb Hct MCV MCH MCHC RDW Plt Count MPV Neut % (Auto) Lymph % (Auto) [place] % (Auto) Eos % (Auto) Baso % (Auto) Neut # (Auto) Lymph # (Auto) [place] # (Auto) Eos # (Auto) Baso # (Auto) Total Counted Immature Gran % Nucleated RBC % Immature Gran # Segmented Neutrophils Lymphocytes Nucleated RBCs # Platelet Estimate Hypochromasia Morphology Comment ABG pH ABG pCO2 ABG pO2 ABG HCO3 ABG Total CO2 ABG O2 Saturation ABG Base Excess FiO2 Sodium Potassium 3.6 Chloride Carbon Dioxide Anion Gap BUN Creatinine GFR Calculation BUN/Creatinine Ratio Glucose POC Glucose 203 H 208 H Calculated Osmolality Lactic Acid Calcium Magnesium Total Bilirubin AST ALT Alkaline Phosphatase Total Protein Albumin Globulin Albumin/Globulin Ratio 12/04/16 12/04/16 12/04/16 00:53 03:36 03:59 WBC RBC Hgb Hct MCV MCH MCHC RDW Plt Count MPV Neut % (Auto) Lymph % (Auto) [place] % (Auto) Eos % (Auto) Baso % (Auto) Neut # (Auto) Lymph # (Auto) [place] # (Auto) Eos # (Auto) Baso # (Auto) Total Counted Immature Gran % Nucleated RBC % Immature Gran # Segmented Neutrophils Lymphocytes Nucleated RBCs # Platelet Estimate Hypochromasia Morphology Comment ABG pH 7.397 ABG pCO2 60.5 H ABG pO2 94.0 ABG HCO3 34.3 H ABG Total CO2 34.7 H ABG O2 Saturation 97.5 ABG Base Excess 10.6 H FiO2 40.00 Sodium 136 Potassium 3.8 Chloride 92 L Carbon Dioxide 37 H Anion Gap 10.8 BUN 53 H Creatinine 0.80 GFR Calculation 113 BUN/Creatinine Ratio 66.00 H Glucose 161 H POC Glucose 164 H Calculated Osmolality 288.0 Lactic Acid Calcium 8.0 L Magnesium 2.4 Total Bilirubin AST ALT Alkaline Phosphatase Total Protein Albumin Globulin Albumin/Globulin Ratio 12/04/16 12/04/16 12/04/16 04:00 05:50 08:22 WBC 22.2 H RBC 2.66 L Hgb 7.1 L Hct 24.5 L MCV 92.1 MCH 27 MCHC 29.0 L RDW 15.9 Plt Count 109 L MPV 10.9 Neut % (Auto) 86.8 H Lymph % (Auto) 4.6 L [place] % (Auto) 2.3 Eos % (Auto) 0.0 Baso % (Auto) 0.1 Neut # (Auto) 19.3 H Lymph # (Auto) 1.0 L [place] # (Auto) 0.5 Eos # (Auto) 0.0 Baso # (Auto) 0.0 Total Counted Immature Gran % 6.2 Nucleated RBC % 0.8 Immature Gran # 1.38 Segmented Neutrophils Lymphocytes Nucleated RBCs # 0.17 Platelet Estimate Hypochromasia Morphology Comment ABG pH ABG pCO2 ABG pO2 ABG HCO3 ABG Total CO2 ABG O2 Saturation ABG Base Excess FiO2 Sodium 134 L Potassium 3.8 Chloride 92 L Carbon Dioxide 36 H Anion Gap 9.8 BUN 51 H Creatinine 0.80 GFR Calculation 112 BUN/Creatinine Ratio 63.00 H Glucose 158 H POC Glucose 178 H Calculated Osmolality 284.2 Lactic Acid Calcium 7.9 L Magnesium Total Bilirubin < 0.39 AST 32 ALT 26 Alkaline Phosphatase 46 Total Protein 4.1 L Albumin 2.0 L Globulin 2.1 L Albumin/Globulin Ratio 0.9 L 12/04/16 12/04/16 12/04/16 08:27 Unknown Unknown WBC 18.8 H RBC 3.00 L Hgb 8.0 L Hct 26.0 L MCV 86.7 L MCH 27 MCHC 30.8 L RDW 15.8 Plt Count 117 L MPV 10.8 Neut % (Auto) 95.7 H Lymph % (Auto) 0.5 L [place] % (Auto) 2.1 Eos % (Auto) 0.0 Baso % (Auto) 0.1 Neut # (Auto) 18.0 H Lymph # (Auto) 0.1 L [place] # (Auto) 0.4 Eos # (Auto) 0.0 Baso # (Auto) 0.0 Total Counted 100 Immature Gran % 1.6 Nucleated RBC % 0.1 Immature Gran # 0.31 Segmented Neutrophils 98 H Lymphocytes 2 L Nucleated RBCs # 0.02 Platelet Estimate Normal Hypochromasia 1+ Morphology Comment ABG pH 7.073 L* ABG pCO2 116.0 H* ABG pO2 26.8 L* ABG HCO3 24.9 ABG Total CO2 34.0 H ABG O2 Saturation 25.8 L ABG Base Excess 1.5 FiO2 Sodium Potassium Chloride Carbon Dioxide Anion Gap BUN Creatinine GFR Calculation BUN/Creatinine Ratio Glucose POC Glucose Calculated Osmolality Lactic Acid 5.3 H Calcium Magnesium Total Bilirubin AST ALT Alkaline Phosphatase Total Protein Albumin Globulin Albumin/Globulin Ratio - EKG EKG results: interpreted by ks Quality Measures - VTE Deep Vein Thrombosis/Pulmonary Embolism Present on Admission: No
--- NOTE | 2016-12-04 09:29 | XRay Report ---
XR chest 1V portable Indication: Intubated. Chest one view: Tracheostomy, NG tube, borderline cardiomegaly, right upper lobe bullous emphysema and leftward displacement of the anterior pleural junction line are stable. Defibrillator pad is now in the [id number]. No infiltrates are shown. Impression: Defibrillator pad now present. Otherwise no change. PROCEDURE INTERPRETED AT [facility] DEPARTMENT OF RADIOLOGY Final Report Signed by: Ben Taylor M.D.
--- NOTE | 2016-12-04 09:34 | XRay Report ---
XR chest 1V portable Indication: Possible tension pneumothorax. Chest one view: Since 5 hours earlier, new right-sided chest tube has been placed in the mid chest cavity. Severe saphenous emphysema is now developed throughout both sides of the chest. No pneumothorax on the current exam, nor on the comparison. Coarsened interstitial markings at the left lung as well as the mid right lung noted. Heart size is normal. Tracheostomy position is unchanged. Impression: Mid right chest tube. Significant subcutaneous emphysema throughout. PROCEDURE INTERPRETED AT [facility] DEPARTMENT OF RADIOLOGY Final Report Signed by: Ben Taylor M.D.
--- NOTE | 2016-12-04 09:35 | XRay Report ---
XR chest 1V portable Indication: Cardiopulmonary arrest. Adjustment of right chest tube position. Chest one view: Right-sided chest tube has been advanced since the study obtained 14 minutes earlier. It is now deep in the chest, overlying the mediastinum. Subcutaneous emphysema throughout, coarsened interstitial markings of the left lung and mid and lower right lung, and bullous emphysema right apex are stable. Tracheostomy is unchanged as well. Impression: Advanced right chest tube as described. PROCEDURE INTERPRETED AT [facility] DEPARTMENT OF RADIOLOGY Final Report Signed by: Ben Taylor M.D.
[2016-12-04 09:38] LABS: Band Neutrophils 2 % (0-10); Lymphocytes 3 % (20-55); Segmented Neutrophils 93 % (50-85); Total Cells Counted 100
[2016-12-04 09:39] LABS: Hypochromasia 1+; Microcytosis Slight; Platelet Estimate Normal
[2016-12-04 09:49] LABS: ABG HCO3 24.2 MMOL/L (20-26); ABG Oxygen Saturation 87.2 % (95-100); ABG PH 7.234 (7.35-7.45); ABG PO2 64.7 MM HG (80-95)
[2016-12-04 09:52] LABS: ABG PCO2 69.3 MM HG (35-48)
[2016-12-04 09:58] LABS: Potassium 4.6 MMOL/L (3.5-5.1); Sodium 142 MMOL/L (136-145)
[2016-12-04 10:00] LABS: Calcium 8.1 MG/DL (8.5-10.1)
[2016-12-04] MEDS ORDERED: fentaNYL INJ 1,250 MCG in SODIUM CHLORIDE 0.9% 225 ML IV SCH (10:00)
[2016-12-04] MEDS ORDERED: PHENYLEPHRINE DRIP 0 MG/0 ML PREMIX IV ONE (10:00)
[2016-12-04] MEDS ORDERED: CISATRACURIUM 200 MG in SODIUM CHLORIDE 0.9% 100 ML IV SCH (10:00)
[2016-12-04] MEDS ORDERED: NOREPINEPHRINE 16 MG in SODIUM CHLORIDE 0.9% 234 ML IV SCH (10:00)
[2016-12-04 10:01] LABS: Blood Urea Nitrogen 57 MG/DL (7-18); Glucose 336 MG/DL (74-106); Magnesium 2.7 MG/DL (1.8-2.4); Osmolality,Calculated 311.1 MOS/KG (273-304)
--- NOTE | 2016-12-04 10:06 | Discharge Summary ---
Diagnosis - Discharge Diagnosis (1) Hypokalemia Status: Acute (2) Ventilator dependence Status: Acute (3) Hypertension Status: Chronic (4) Respiratory failure Status: Acute (5) Subcutaneous emphysema Status: Acute (6) Tension pneumothorax Status: Acute Discharge Plan - Discharge Data Disposition: Condition at Discharge: Discharge Diet: other (Patient ) Activity: other (Patient ) Hygiene: other (Patient ) Driving: other (Patient received) - Discharge Medications No Action Cetirizine Tab [ZyrTEC Tab] 10 mg PO DAILY Atorvastatin [Lipitor] 10 mg PO DAILY Theophylline ER Tab (24 Hr) 400 mg PO DAILY dilTIAZem HCl [Diltiazem ER (24 hr)] 360 mg PO DAILY Pantoprazole Tab [Protonix Tab] 40 mg PO DAILY Furosemide Tab [Lasix Tab] 40 mg PO DAILY Albuterol Sulfate [Ventolin HFA] 2 puff INH Q4H PRN PRN Reason: Shortness Of Breath/Wheezing Roflumilast [Daliresp] 500 mcg PO DAILY Levofloxacin Tab [Levaquin Tab] 750 mg PO DAILY #7 tablet Budesonide/Formoterol 160-4.5 [Symbicort 160-4.5] 2 puff INH BID Acetaminophen Tab [Tylenol Tab] 325 mg PO Q4H PRN #0 tablet PRN Reason: fever, headache/body aches Magnesium Hydroxide Susp [Milk of Magnesia] 30 ml PO BID PRN #0 PRN Reason: Constipation Melatonin 3 mg PO BEDTIME PRN #0 tablet PRN Reason: Sleep predniSONE [Prednisone] 20 mg PO DIRECTED 10 Days - Follow Up or Referral - Forms/Instructions Exam - Constitutional Vitals: Period Temp Pulse Resp BP Sys/Graf Pulse Ox Last 24 Hr 97 F-98.2 F 86-108 5-36 66-184/44-117 84-100 Discharge Results Procedures and tests throughout hospitalization: Pending Orders 11/20/16 09:00 Fungal Culture w/ Prep Routine 12/04/16 08:22 B-Type Natriuretic Peptide Stat 12/04/16 08:27 Basic Metabolic Panel w/Mg Stat Troponin,CKMB & Ck Total Stat Type and Screen Stat 12/05/16 04:00 Magnesium Routine Phosphorous Routine Prealbumin Routine Labs on day of discharge: Labs from last 24 hours 12/04/16 12/04/16 12/04/16 Unknown Unknown 09:30 WBC 18.8 H RBC 3.00 L Hgb 8.0 L Hct 26.0 L MCV 86.7 L MCH 27 MCHC 30.8 L RDW 15.8 Plt Count 117 L MPV 10.8 Neut % (Auto) 95.7 H Lymph % (Auto) 0.5 L [place] % (Auto) 2.1 Eos % (Auto) 0.0 Baso % (Auto) 0.1 Neut # (Auto) 18.0 H Lymph # (Auto) 0.1 L [place] # (Auto) 0.4 Eos # (Auto) 0.0 Baso # (Auto) 0.0 Total Counted 100 Immature Gran % 1.6 Nucleated RBC % 0.1 Immature Gran # 0.31 Segmented Neutrophils 98 H Band Neutrophils Lymphocytes 2 L Monocytes Nucleated RBCs # 0.02 Platelet Estimate Normal Hypochromasia 1+ Microcytosis Morphology Comment ABG pH 7.073 L* 7.234 L ABG pCO2 116.0 H* 69.3 H* ABG pO2 26.8 L* 64.7 L ABG HCO3 24.9 24.2 ABG Total CO2 34.0 H 27.0 ABG O2 Saturation 25.8 L 87.2 L ABG Base Excess 1.5 0.0 FiO2 Sodium Potassium Chloride Carbon Dioxide Anion Gap BUN Creatinine GFR Calculation BUN/Creatinine Ratio Glucose POC Glucose Calculated Osmolality Lactic Acid Calcium Magnesium Total Bilirubin AST ALT Alkaline Phosphatase Total Protein Albumin Globulin Albumin/Globulin Ratio 12/04/16 12/04/16 12/04/16 09:30 08:27 08:22 WBC 22.2 H RBC 2.66 L Hgb 7.1 L Hct 24.5 L MCV 92.1 MCH 27 MCHC 29.0 L RDW 15.9 Plt Count 109 L MPV 10.9 Neut % (Auto) 86.8 H Lymph % (Auto) 4.6 L [place] % (Auto) 2.3 Eos % (Auto) 0.0 Baso % (Auto) 0.1 Neut # (Auto) 19.3 H Lymph # (Auto) 1.0 L [place] # (Auto) 0.5 Eos # (Auto) 0.0 Baso # (Auto) 0.0 Total Counted 100 Immature Gran % 6.2 Nucleated RBC % 0.8 Immature Gran # 1.38 Segmented Neutrophils 93 H Band Neutrophils 2 Lymphocytes 3 L Monocytes 2 Nucleated RBCs # 0.17 Platelet Estimate Normal Hypochromasia 1+ Microcytosis Slight Morphology Comment ABG pH ABG pCO2 ABG pO2 ABG HCO3 ABG Total CO2 ABG O2 Saturation ABG Base Excess FiO2 Sodium Potassium Chloride Carbon Dioxide Anion Gap BUN Creatinine GFR Calculation BUN/Creatinine Ratio Glucose POC Glucose Calculated Osmolality Lactic Acid 14.1 H Cancelled Calcium Magnesium Total Bilirubin AST ALT Alkaline Phosphatase Total Protein Albumin Globulin Albumin/Globulin Ratio 12/04/16 12/04/16 12/04/16 05:50 04:00 03:59 WBC RBC Hgb Hct MCV MCH MCHC RDW Plt Count MPV Neut % (Auto) Lymph % (Auto) [place] % (Auto) Eos % (Auto) Baso % (Auto) Neut # (Auto) Lymph # (Auto) [place] # (Auto) Eos # (Auto) Baso # (Auto) Total Counted Immature Gran % Nucleated RBC % Immature Gran # Segmented Neutrophils Band Neutrophils Lymphocytes Monocytes Nucleated RBCs # Platelet Estimate Hypochromasia Microcytosis Morphology Comment ABG pH 7.397 ABG pCO2 60.5 H ABG pO2 94.0 ABG HCO3 34.3 H ABG Total CO2 34.7 H ABG O2 Saturation 97.5 ABG Base Excess 10.6 H FiO2 40.00 Sodium 134 L Potassium 3.8 Chloride 92 L Carbon Dioxide 36 H Anion Gap 9.8 BUN 51 H Creatinine 0.80 GFR Calculation 112 BUN/Creatinine Ratio 63.00 H Glucose 158 H POC Glucose 178 H Calculated Osmolality 284.2 Lactic Acid Calcium 7.9 L Magnesium Total Bilirubin < 0.39 AST 32 ALT 26 Alkaline Phosphatase 46 Total Protein 4.1 L Albumin 2.0 L Globulin 2.1 L Albumin/Globulin Ratio 0.9 L 12/04/16 12/04/16 12/03/16 03:36 00:53 19:51 WBC RBC Hgb Hct MCV MCH MCHC RDW Plt Count MPV Neut % (Auto) Lymph % (Auto) [place] % (Auto) Eos % (Auto) Baso % (Auto) Neut # (Auto) Lymph # (Auto) [place] # (Auto) Eos # (Auto) Baso # (Auto) Total Counted Immature Gran % Nucleated RBC % Immature Gran # Segmented Neutrophils Band Neutrophils Lymphocytes Monocytes Nucleated RBCs # Platelet Estimate Hypochromasia Microcytosis Morphology Comment ABG pH ABG pCO2 ABG pO2 ABG HCO3 ABG Total CO2 ABG O2 Saturation ABG Base Excess FiO2 Sodium 136 Potassium 3.8 3.6 Chloride 92 L Carbon Dioxide 37 H Anion Gap 10.8 BUN 53 H Creatinine 0.80 GFR Calculation 113 BUN/Creatinine Ratio 66.00 H Glucose 161 H POC Glucose 164 H Calculated Osmolality 288.0 Lactic Acid Calcium 8.0 L Magnesium 2.4 Total Bilirubin AST ALT Alkaline Phosphatase Total Protein Albumin Globulin Albumin/Globulin Ratio 12/03/16 12/03/16 18:14 11:42 WBC RBC Hgb Hct MCV MCH MCHC RDW Plt Count MPV Neut % (Auto) Lymph % (Auto) [place] % (Auto) Eos % (Auto) Baso % (Auto) Neut # (Auto) Lymph # (Auto) [place] # (Auto) Eos # (Auto) Baso # (Auto) Total Counted Immature Gran % Nucleated RBC % Immature Gran # Segmented Neutrophils Band Neutrophils Lymphocytes Monocytes Nucleated RBCs # Platelet Estimate Hypochromasia Microcytosis Morphology Comment ABG pH ABG pCO2 ABG pO2 ABG HCO3 ABG Total CO2 ABG O2 Saturation ABG Base Excess FiO2 Sodium Potassium Chloride Carbon Dioxide Anion Gap BUN Creatinine GFR Calculation BUN/Creatinine Ratio Glucose POC Glucose 208 H 203 H Calculated Osmolality Lactic Acid Calcium Magnesium Total Bilirubin AST ALT Alkaline Phosphatase Total Protein Albumin Globulin Albumin/Globulin Ratio Preliminary micro results at discharge 11/19/16 20:51 Fungal Culture - Preliminary Sputum Zoë albicans DS: Provider Date of admission: 11/19/16 15:28 Primary care physician: . No PCP Attending physician on admission: Sandra Garcia MD Consults: 11/19/16 16:51 Consult to Physician [CONS] Routine Comment: Consulting Provider: Kyle Martin Consult to Specialist Group: Pulmonology When should Consulting Provider be notified: Now 11/19/16 16:56 Consult to Physician [CONS] Routine Comment: Consulting Provider: Kyle Martin When should Consulting Provider be notified: Now Consult to Specialist Group: Pulmonology When should Consulting Provider be notified: In am 11/19/16 17:00 Consult to Physician [CONS] Routine Comment: Consulting Provider: Saúl Cisneros Consult to Specialist Group: Surgery When should Consulting Provider be notified: Now 11/19/16 17:01 Consult to Pharmacy [CONS] Routine Reason for Pharmacy Consult: Adjust Meds Renal Funct 11/19/16 19:04 Consult to Dietitian [CONS] Routine Reason for Dietitian: Other 11/20/16 08:00 Consult to Dietitian [CONS] Routine Reason for Dietitian: TF-Initiate/Manage 11/21/16 08:00 Consult to Occupational Therapy [CONS] Routine Reason for Occupational Therapy: Evaluate and Treat Start Therapy: Tomorrow Consult to Physical Therapy [CONS] Routine Reason for Physical Therapy: Evaluate and Treat Start Therapy: Tomorrow 11/27/16 08:39 Consult to Physician [CONS] Routine Comment: Consulting Provider: Thelma Barnes 11/29/16 12:08 Consult to Physician [CONS] Routine Comment: For trach placement Consulting Provider: Charlie Maher Consult to Specialist Group: ENT When should Consulting Provider be notified: Now Consult Notification Comment: Left message on answering machine at 1214 11/30/16 14:15 Consult to Physician [CONS] Routine Comment: cancel urology consult Consulting Provider: 12/01/16 09:46 Consult to Case Mgmt/Social Srvs [CONS] Routine Reason for Case Mgmt/Social Srvs: LTAC Discharging clinician: Lanre Bragg MD
[2016-12-04 10:11] LABS: Troponin I Only 0.714 NG/ML (0.00-0.045)
--- NOTE | 2016-12-04 11:00 | Progress Note ---
Assessment and Plan - Time spent with patient Time spent with patient: Greater than 30 minutes (1) Tracheostomy malfunction Status: Acute Assessment and plan: Tracheostomy was found leaking and was subsequently changed at bedside shortly after changing the patient developed immediate subcutaneous air consistent with dislodgment and/or false track of the trach. The trach was able to be replaced with an 8 Shiley extra long trach under tracheoscopy and bougie trach change tube. During the time of the dislodgment the patient subsequently coded and required CPR and ACLS that was performed by my colleagues please see cardiology note. The patient was revived and did have subcutaneous air but had a pulse normotension. During the CPR it was found that the previous right pneumothorax had returned and I subsequently placed a right chest tube through the previous chest tube insertion. X-ray revealed it was in place but because of the pneumothorax we advanced it to the apex. Reports as of 11:00 after having seen another patient was that the family decided to not advance care again went and said their goodbyes and the patient subsequently passed please see additional notes Current Visit: Yes (2) Ventilator dependence Status: Acute Assessment and plan: I recommend tracheostomy placement we will consent for surgery tomorrow we will hold anticoagulants and tube feeds at midnight today. Thank you very much for this consult and I will follow the patient intermittently throughout his time in the hospital. Current Visit: Yes (3) Respiratory failure Status: Acute Current Visit: Yes (4) Acute exacerbation of chronic obstructive pulmonary disease (COPD) Status: Acute Current Visit: Yes (5) Tracheostomy hemorrhage Status: Acute Assessment and plan: Treated with packing of the stoma paratracheally with Surgicel this performed at bedside tolerated well we will continue to follow this patient if we need to we can perform this procedure again. He may continue to have some mild hemorrhage but hopefully his hypertension will continue to be more optimally controlled on this will help as well. Current Visit: Yes (6) Pneumothorax, acute Status: Acute Current Visit: Yes Family Medicine PN Sub Interval history: Called to bedside over continued paratracheal leak with poor seal. Trach placed last Monday postop day #4. ENT is called to evaluate and treat. Reports of hypotension requiring levophed to normalize his blood pressure throughout the night. Exam (Progress Note) - Constitutional Vitals: Period Temp Pulse Resp BP Sys/Graf Pulse Ox Last 24 Hr 97 F-98.2 F 86-108 5-36 66-184/44-117 84-100 General appearance: mild distress, over weight, other (Intubated and sedated on the ventilator) - ENT ENT exam: Present: normal exam, normal external ear exam, normal oropharynx ( Normal secretions suctioned) - Respiratory Respiratory exam: Present: other (Right chest tube removed on Monday) Results - Labs CBC & BMP: 12/04/16 Unknown 12/04/16 08:27 Lab Results: I have reviewed the past 24 hour labs Quality Measures - VTE Deep Vein Thrombosis/Pulmonary Embolism Present on Admission: No
[2016-12-04 17:09] VITALS: BP 113/89
[2016-12-04] MEDS: AMIODARONE 200 MG TABLET PO SCH (19:10)
[2016-12-04] MEDS: FUROSEMIDE 40 MG TABLET PO SCH (19:11)
[2016-12-04] MEDS: PANTOPRAZOLE 40 MG VIAL IV SCH (19:11)
[2016-12-04] MEDS: DESITIN 4OZ/NYSTATIN 15 GRAM MIXTURE PASTE TOP SCH (19:11)
[2016-12-04] MEDS: ATORVASTATIN 10 MG TABLET PO SCH (19:11)
[2016-12-04] MEDS: VALSARTAN 80 MG TABLET PO SCH (19:11)
[2016-12-04] MEDS: hydroCHLOROthiazide 12.5 MG CAPSULE PO SCH (19:11)
[2016-12-04] MEDS: BUDESONIDE/FORMOTEROL 160-4.5 INHALER 6 GM INH SCH (19:12)
== END 2016-12-04 10:04 | disposition expired | DRG 4 ==
LOC: EDBD → EDUNIT# → N.ED 14:32 → SUATTDRO 15:28 → N.EDINP 15:28 → N.CC 15:50
PROVIDERS: ADMIT Internal Medicine; ATTEND Internal Medicine Infectious Disease